=== PATIENT | male | born 1940 | race Caucasian/White ===

== ENCOUNTER 2017-06-03 19:40 | Emergency (ER) | payer MEDICARE, OTHER ==
[2017-06-03] MEDS: LORazepam 0.5 MG TABLET PO STA (21:35)
[2017-06-03] MEDS ORDERED: LORazepam 0.5 MG TABLET ONE (21:36)
--- NOTE | 2017-06-03 21:38 | ED Physician Documentation ---
History of Present Illness - Stated complaint Stated Complaint: SHAKING - Chief complaint Chief Complaint: General - History obtained from History obtained from: Patient, Family - History of Present Illness Timing: Chronic Improved by: relaxing Worsened by: anxiety - Additonal information Additional information: Patient is a 77 year old male with a history of anxiety and parkinson's disease who is presenting to the emergency department for anxiety and shaking. According to patient and family patient recently moved and has been feeling anxious. patient and family state that there was some mix up with his medictions and his shaking seemed worse. They went to see their new doctor today for the first time who also prescribed some anxiety medication. they were told that they could only take it every 12 hours so they came to the emergency department for evaluation. patient and family state that it seems his tremor is worse than usual. Review of Systems Constitutional: denies: Fever, Chills, Myalgias Eyes: denies: Loss of vision, Photophobia Ears: denies: Ear pain, Drainage/discharge Nose: denies: Congestion Throat: denies: Oral lesions / sores, Sore throat Cardiac: denies: Chest pain / pressure, Palpitations Respiratory: denies: Cough, Wheezing GI: denies: Nausea, Vomiting : reports: Reviewed and negative Skin: reports: Reviewed and negative Musculoskeletal: denies: Neck pain, Back pain, Extremity pain Neurologic: reports: Other (tremor) Psychiatric: reports: Anxiety PD PAST MEDICAL HISTORY - Allergies Allergies/Adverse Reactions: Allergies Allergy/AdvReac Type Severity Reaction Status Date / Time prednisone Allergy Edema Verified 06/03/17 19:50 PD ED PE NORMAL - Vitals Vital signs reviewed: Yes - General General: Alert and oriented X 3, No acute distress - HEENT HEENT: Atraumatic, PERRL - Neck Neck: Supple, no meningeal sign - Cardiac Cardiac: RRR, No murmur - Respiratory Respiratory: No respiratory distress, Clear bilaterally - Abdomen Abdomen: Soft, Non distended - Neuro Neuro: Alert and oriented X 3, Normal speech PD ED PE EXPANDED - General General: Disheveled, poorly kept - Neuro Neuro: Other (resting tremor, worst in right hand) - Psych Psych: Anxious Results - Vitals Vitals: Vital Signs - 24 hr 06/03/17 06/03/17 19:47 21:39 Temperature 36.5 C 36.4 C L Heart Rate 148 H 68 Respiratory 18 24 Rate Blood Pressure 147/86 H O2 Saturation 99 95 Oxygen O2 Source Room air PD MEDICAL DECISION MAKING - ED course Complexity details: reviewed old records, re-evaluated patient, considered differential, d/w patient, d/w family ED course: Patient was seen and examined at bedside. diagnostics and imaging were offered to the patient but unlikely to be helpful in this situation. patient and family stated that they would rather not get blood work or imaging, and it was mainly that he was feeling anxious and wanted to know if he could take more of his medication. Patient was treated with ativan, 1mg. Patient required no further work up at this time and was stable for discharge with outpatient follow up. Departure - Departure Disposition: Home, Self Care Clinical Impression: Anxiety about health, Parkinson disease Condition: Good Instructions: ED Stress React Follow-Up: Torrey Duong MD [Primary Care Provider] - Within 1 week Comments: Your symptoms today are likely secondary to stress/anxiety exacerbating your baseline parkinson's disease. You should try to get on a regular schedule with your parkinson's and anxiety meds. You should follow up with your doctors within the next week do re-evaluate the dosing. you may return to the emergency department at any time as needed for new, worsening or uncontrollable symptoms. Discharge Date/Time: 06/03/17 21:47
[2017-06-03 21:40] VITALS: BP 147/86
== END 2017-06-03 21:47 | disposition home or self-care (01) ==
LOC: ED 19:40
DX: F41.9 Anxiety disorder, unspecified (principal); G20 Parkinson's disease
CPT/HCPCS: 99283

== ENCOUNTER 2017-08-08 15:45 | Outpatient (CLI) | payer OTHER | END 2017-08-08 15:46 | disposition EMS.NT | LOC: EMS 15:45 | PROVIDERS: ATTEND Surgery | DX: R45.89 Other symptoms and signs involving emotional state (principal) ==

== ENCOUNTER 2017-08-10 09:40 | Outpatient (CLI) | payer OTHER | END 2017-08-10 09:41 | disposition critical access hospital (66) | LOC: EMS 09:40 | PROVIDERS: ATTEND Surgery | DX: R46.89 Other symptoms and signs involving appearance and behavior (principal) | CPT/HCPCS: A0425; A0429 ==

== ENCOUNTER 2017-08-10 09:47 | Emergency (ER) | payer OTHER ==
--- NOTE | 2017-08-10 09:58 | ED Physician Documentation ---
History of Present Illness - Stated complaint Stated Complaint: MHE - Chief complaint Chief Complaint: General - History obtained from History obtained from: Family (Pt was unable/unwilling to provide any history. of patient provided history. states that over the past 3 days the pt has become more confused. He does have a hx of PD [facility] She denies any trauma, no hx of dementia, does have chronic pain. did have an increase in his PD meds recently. There have been some reports of no no sleep for the past couple days.), EMS Review of Systems Unable to obtain: Uncooperative PD PAST MEDICAL HISTORY - Past Medical History Cardiovascular: Hypertension Neuro: Parkinson's Other Past Medical History: Parkinson's - Past Surgical History Past Surgical History: No - Present Medications Home Medications: Ambulatory Orders Medication Instructions Recorded Confirmed Carbidopa/Levodopa [Carbidopa-Levo 1 tab PO QID 08/10/17 08/10/17 ER 50-200 Tab] Carbidopa/Levodopa 1 tab PO QID 08/10/17 08/10/17 [Carbidopa-Levodopa 25-100 Tab] Citalopram Hydrobromide 20 mg PO DAILY 08/10/17 08/10/17 [Citalopram HBr] Lorazepam [Ativan] 1 mg PO Q6HR PRN #7 tablet 08/10/17 Meloxicam 7.5 mg PO DAILY 08/10/17 08/10/17 - Allergies Allergies/Adverse Reactions: Allergies Allergy/AdvReac Type Severity Reaction Status Date / Time prednisone Allergy Edema Verified 06/03/17 19:50 PD ED PE NORMAL - Vitals Vital signs reviewed: Yes - General General: Other (pt did not answer questions and did not follow directions. ) - HEENT HEENT: Atraumatic, Moist mucous membranes - Cardiac Cardiac: RRR, No murmur - Respiratory Respiratory: No respiratory distress - Abdomen Abdomen: Soft, Non distended - Derm Derm: Normal color, No rash - Extremities Extremities: No deformity, No edema - Neuro Neuro: Other (pt with bilateral rhythmic movements C/W his PD) Eye Opening: Spontaneous Motor: Localizes to Pain Verbal: None GCS Score: 10 Results - Vitals Vitals: Vital Signs - 24 hr 08/10/17 08/10/17 08/10/17 09:48 10:07 10:35 Temperature 36.6 C Heart Rate 76 78 79 Respiratory 16 20 20 Rate Blood Pressure 171/116 H 128/100 H O2 Saturation 100 99 99 08/10/17 11:34 Temperature Heart Rate 81 Respiratory 17 Rate Blood Pressure 142/96 H O2 Saturation 97 Oxygen O2 Source Room air - EKG (time done) 1000 Rate: Rate (enter#) Rhythm: NSR [place]: LAD QRS: Normal Other comments: Other comments (baseline wandering secondary to his shaking, has PVC) - Labs Labs: Laboratory Tests 08/10/17 08/10/17 08/10/17 10:10 10:10 10:10 WBC 5.7 RBC 4.41 L Hgb 13.3 L Hct 39.2 L MCV 88.9 MCH 30.2 MCHC 34.0 RDW 16.2 H Plt Count 113 L MPV 7.9 Neut # 3.3 Lymph # 1.0 L [place] # 1.3 H Eos # 0.0 Baso # 0.0 Absolute Nucleated RBC 0.00 Nucleated RBC % 0.0 Manual Slide Review Indicated Platelet Estimate DECREASED (<130,000) Platelet Morphology 1+ GIANT PLATELETS RBC Morph Micro Appear NORMAL APPEARANCE Sodium 132 L Potassium 4.3 Chloride 94 L Carbon Dioxide 24 Anion Gap 14.0 H BUN 19 Creatinine 1.4 H Estimated GFR (MDRD) 49 L Glucose 104 H Calcium 9.7 Total Bilirubin 1.9 H AST 24 ALT < 10 L Alkaline Phosphatase 55 Troponin I < 0.04 Total Protein 7.6 Albumin 4.5 Globulin 3.1 Albumin/Globulin Ratio 1.5 Lipase 21 L Ethyl Alcohol < 5.0 - Rads (name of study) Head Ct Radiology: Other PD MEDICAL DECISION MAKING - ED course Complexity details: d/w patient, d/w family ED course: pt with resolution of all of his presenting symptoms after the IV ativan in the ER. After the ativan the pt became more calm and cooperative and states that he feels much better and feels "normal" again. He had no complaints after the arivan. We discussed his medications. Informed the pt and his that they needed to talk with his neurologist before making any changes to his medications. they expressed understanding. Departure - Departure Disposition: 01 Home, Self Care Clinical Impression: Anxiety Condition: Good Instructions: ED Stress React Follow-Up: jovain willoughby provider [Other] Prescriptions: Lorazepam [Ativan] 1 mg PO Q6HR PRN #7 tablet PRN Reason: Agitation Comments: Call your Neurologist to discuss your medications before you make any changes. Take the medications that I gave you today as needed. Return to the ER for any new or worsening symptoms
[2017-08-10 10:19] LABS: BASOPHILS % (AUTO) 0.4 %; EOSINOPHILS % (AUTO) 0.8 %; HCT - HEMATOCRIT 39.2 % (42.0-52.0); HGB - HEMOGLOBIN 13.3 g/dL (14.0-18.0); MEAN CORPUSCULAR HEMOGLOBIN 30.2 pg (27.0-31.0); MEAN CORPUSCULAR VOLUME 88.9 fL (80.0-94.0); MEAN PLATELET VOLUME 7.9 fL (7.4-11.4); MONOCYTES # (AUTO) 1.3 10^3/uL (0.0-1.0); MONOCYTES % (AUTO) 22.5 %; NEUTROPHILS # (AUTO) 3.3 10^3/uL (1.5-6.6); NEUTROPHILS % (AUTO) 58.3 %; RED BLOOD COUNT 4.41 10^6/uL (4.70-6.10); RED CELL DISTRIBUTION WIDTH 16.2 % (12.0-15.0); UNCORRECTED WHITE BLOOD COUNT 5.7 x10^3/uL; WHITE BLOOD COUNT 5.7 x10^3/uL (4.8-10.8)
[2017-08-10 10:27] LABS: ALBUMIN/GLOBULIN RATIO 1.5 (1.0-2.2); BILIRUBIN,TOTAL 1.9 mg/dL (0.2-1.0); BUN - BLOOD UREA NITROGEN 19 mg/dL (6-20); CALCIUM 9.7 mg/dL (8.5-10.3); CARBON DIOXIDE - CO2 24 mmol/L (21-32); CHLORIDE 94 mmol/L (101-111); CREATININE 1.4 mg/dL (0.6-1.2); GFR - MDRD 49 (>89); GLUCOSE 104 mg/dL (70-100); LIPASE 21 U/L (22-51); POTASSIUM 4.3 mmol/L (3.5-5.0); SODIUM 132 mmol/L (135-145); TOTAL PROTEIN 7.6 g/dL (6.7-8.2)
--- NOTE | 2017-08-10 10:41 | CT Preliminary Report ---
Exam: CT HEAD W/O IMPRESSION: Generalized age-related cortical atrophic changes without evidence of acute intracranial abnormality. [facility] SITE ID: [id number]
--- NOTE | 2017-08-10 10:44 | CT Report ---
EXAM: CT HEAD EXAM DATE: 08/10/2017 10:26 AM. CLINICAL HISTORY: AMS. COMPARISON: None. TECHNIQUE: Multiaxial CT images were obtained from the foramen magnum to the vertex. Reformats: Coron al. IV contrast: None. In accordance with CT protocol optimization, one or more of the following dose reduction techniques w ere utilized for this exam: automated exposure control, adjustment of mA and/or KV based on patient s ize, or use of iterative reconstructive technique. FINDINGS: Parenchyma: No intraparenchymal hemorrhage. No evidence of mass, midline shift, or CT findings of acu te infarction. Alanis-white differentiation is distinct. Mild chronic microangiopathic white matter davide nges are evident. Extraaxial Spaces: Normal for age. No subdural or epidural collections identified. Ventricles: The ventricles and cortical sulci are enlarged, consistent with age-related tissue loss. Sinuses and orbits: Imaged paranasal sinuses, orbits, and mastoids show no significant abnormality. Bones: No evidence of fracture or calvarial defect. Other: None. IMPRESSION: Generalized age-related cortical atrophic changes without evidence of acute intracranial abnormality. [facility] Referring Provider Line: [phone] SITE ID: [id number]
[2017-08-10 11:06] LABS: PLATELET ESTIMATE, MANUAL DECREASED (<130,000) (NORMAL)
[2017-08-10] MEDS ORDERED: LORazepam 0.5 MG TABLET PO STA (11:15)
[2017-08-10] MEDS ORDERED: LORazepam 2 MG/ML VIAL ONE (11:27)
[2017-08-10 12:49] VITALS: BP 219/199
[2017-08-10] MEDS ORDERED: LORazepam 2 MG/ML VIAL IVP STA (18:00)
== END 2017-08-10 13:05 | disposition home or self-care (01) ==
LOC: EDUNIT# → ED 09:47
DX: F41.9 Anxiety disorder, unspecified (principal); I45.2 Bifascicular block; R94.31 Abnormal electrocardiogram [ECG] [EKG]; I10 Essential (primary) hypertension; G20 Parkinson's disease
CPT/HCPCS: 36415; 70450; 80053; 80320; 83690; 84484; 85025; 93005; 99283; 99284; J2060

== ENCOUNTER 2017-08-12 14:01 | Emergency (ER) | payer OTHER ==
[2017-08-12 16:14] LABS: ALBUMIN/GLOBULIN RATIO 1.4 (1.0-2.2); BASOPHILS % (AUTO) 0.7 %; BUN - BLOOD UREA NITROGEN 24 mg/dL (6-20); CALCIUM 9.2 mg/dL (8.5-10.3); CARBON DIOXIDE - CO2 24 mmol/L (21-32); CHLORIDE 96 mmol/L (101-111); CREATININE 1.2 mg/dL (0.6-1.2); EOSINOPHILS % (AUTO) 1.6 %; GFR - MDRD 59 (>89); GLUCOSE 109 mg/dL (70-100); HCT - HEMATOCRIT 36.8 % (42.0-52.0); HGB - HEMOGLOBIN 12.6 g/dL (14.0-18.0); LYMPHOCYTES % (AUTO) 23.8 %; MEAN CORPUSCULAR HEMOGLOBIN 30.5 pg (27.0-31.0); MEAN CORPUSCULAR HGB CONC 34.2 g/dL (32.0-36.0); MEAN CORPUSCULAR VOLUME 89.2 fL (80.0-94.0); MEAN PLATELET VOLUME 7.9 fL (7.4-11.4); MONOCYTES % (AUTO) 20.2 %; NEUTROPHILS % (AUTO) 53.7 %; POTASSIUM 4.1 mmol/L (3.5-5.0); RED BLOOD COUNT 4.13 10^6/uL (4.70-6.10); RED CELL DISTRIBUTION WIDTH 16.1 % (12.0-15.0); SALICYLATE < 6.0 mg/dL; SODIUM 133 mmol/L (135-145); TOTAL PROTEIN 6.8 g/dL (6.7-8.2)
[2017-08-12 16:15] LABS: ACETAMINOPHEN < 10 ug/mL (10-30)
[2017-08-12 16:19] LABS: BAND NEUTROPHILS % (MANUAL) 0 %
--- NOTE | 2017-08-12 16:40 | ED Physician Documentation ---
History of Present Illness - Stated complaint Stated Complaint: MHE - Chief complaint Chief Complaint: MHE - Additonal information Additional information: 77-year-old male with history of Parkinson's disease brought to the emergency department by his for ongoing suicidal ideation. Patient was evaluated 3 days ago, felt that his depressive/altered mental status symptoms were worsening on his medication. Reportedly told he must stay on his medications. He reports feeling somewhat better after ativan in the emergency department but all of his symptoms resumed after going home. He has been unable to sleep for several days. Patient's reports that he opened the car door from moving vehicle and attempted to jump out in order to hurt himself. Patient endorses hallucinations to me. Review of Systems Constitutional: denies: Fever Nose: denies: Congestion Throat: denies: Sore throat Cardiac: denies: Chest pain / pressure Respiratory: denies: Dyspnea GI: denies: Abdominal Pain Skin: denies: Rash Musculoskeletal: denies: Extremity pain Neurologic: reports: Other (parkinsons) Psychiatric: reports: Depressed, Suicidal, Hallucinations, Insomnia PD PAST MEDICAL HISTORY - Past Medical History Past Medical History: Yes Cardiovascular: Hypertension Respiratory: None Neuro: Parkinson's Endocrine/Autoimmune: None GI: None : None HEENT: None Psych: None Musculoskeletal: Chronic back pain Derm: None - Past Surgical History Past Surgical History: No - Present Medications Home Medications: Ambulatory Orders Medication Instructions Recorded Confirmed Carbidopa/Levodopa [Carbidopa-Levo 1 tab PO QID 08/10/17 08/10/17 ER 50-200 Tab] Carbidopa/Levodopa 1 tab PO QID 08/10/17 08/10/17 [Carbidopa-Levodopa 25-100 Tab] Citalopram Hydrobromide 20 mg PO DAILY 08/10/17 08/10/17 [Citalopram HBr] Lorazepam [Ativan] 1 mg PO Q6HR PRN #7 tablet 08/10/17 Meloxicam 7.5 mg PO DAILY 08/10/17 08/10/17 - Allergies Allergies/Adverse Reactions: Allergies Allergy/AdvReac Type Severity Reaction Status Date / Time prednisone Allergy Edema Verified 06/03/17 19:50 - Social History Does the pt smoke?: No Smoking Status: Never smoker Does the pt drink ETOH?: No Does the pt have substance abuse?: No - Immunizations Immunizations are current?: Yes - POLST Patient has POLST: No PD ED PE NORMAL - General General: No acute distress - HEENT HEENT: Atraumatic - Neck Neck: Supple, no meningeal sign - Cardiac Cardiac: RRR - Respiratory Respiratory: No respiratory distress, Clear bilaterally - Abdomen Abdomen: Soft, Non tender - Derm Derm: Normal color - Extremities Extremities: No deformity - Neuro Neuro: Other (Pill-rolling tremor,Paucity of movement, masked facies) - Psych Psych: Other (flat, minimal interaction, uncertain if responding to internal stimuli ) Results - Vitals Vitals: Vital Signs - 24 hr 08/12/17 08/12/17 08/12/17 14:09 17:34 21:57 Temperature 36.6 C Heart Rate 97 70 67 Respiratory 20 12 22 Rate Blood Pressure 130/89 H 114/83 H 88/66 L O2 Saturation 99 92 95 08/12/17 22:23 Temperature Heart Rate 63 Respiratory Rate Blood Pressure 119/80 O2 Saturation 97 Oxygen O2 Source Room air - Labs Labs: Laboratory Tests 08/12/17 08/12/17 08/12/17 15:53 15:53 15:53 WBC 4.0 L RBC 4.13 L Hgb 12.6 L Hct 36.8 L MCV 89.2 MCH 30.5 MCHC 34.2 RDW 16.1 H Plt Count 120 L MPV 7.9 Neut # EMERGENCY ROOM RN Lymph # EMERGENCY ROOM RN [place] # EMERGENCY ROOM RN Eos # EMERGENCY ROOM RN Baso # EMERGENCY ROOM RN Absolute Nucleated RBC EMERGENCY ROOM RN Total Counted 100 Band Neuts % (Manual) 0 Abnorm Lymph % (Manual) 0 Nucleated RBC % EMERGENCY ROOM RN Neutrophils # (Manual) 2.1 Lymphocytes # (Manual) 1.0 L Monocytes # (Manual) 0.8 Eosinophils # (Manual) 0.1 Basophils # (Manual) 0.0 Manual Slide Review Indicated WBC Morphology 1+ HYPERSEG NEUT Platelet Estimate DECREASED (<130,000) Platelet Morphology NORMAL APPEARANCE RBC Morph Micro Appear 1+ POLYCHROMASIA Sodium 133 L Potassium 4.1 Chloride 96 L Carbon Dioxide 24 Anion Gap 13.0 BUN 24 H Creatinine 1.2 Estimated GFR (MDRD) 59 L Glucose 109 H Calcium 9.2 Total Bilirubin 1.0 AST 19 ALT < 10 L Alkaline Phosphatase 56 Total Protein 6.8 Albumin 4.0 Globulin 2.8 Albumin/Globulin Ratio 1.4 TSH 1.26 Salicylates < 6.0 Acetaminophen < 10 L Ethyl Alcohol < 5.0 - Rads (name of study) CT chest Radiology: Other (error no CT chest performed) PD MEDICAL DECISION MAKING - ED course ED course: 77-year-old male presents to the emergency departmentBrought by for the second time this week for, possible psychosis versus worsening Parkinson's disease with suicidality and depression and insomnia. It is difficult to assess whether this is related to worsening Parkinson's or possible early dementia or Lewy body dementia or truly silly dementia depression. It may be a combination of both. Nonetheless this patient is at high risk for self injury at home, and would benefit greatly from medical as well as psychiatric evaluation inpatient with a structured milieu. [facility]ed with [facility] options for medical admission with psychiatric consultation versus psychiatric admission with medical consultation. If the appropriate consultation were available either location. The [facility] reports they do not have any availability for patient to be placed. Discussed patient's case with the [facility] social media senior associate, they reported that they could not assist with any disposition for this patient without him first having a mental health evaluation in our emergency department. Suggests that patient be set up for a geriatric psychiatric facility. Discussed patient's case with mental health, they will not evaluate this patient in the emergency department given that he would be agreeable to going to a facility, they only evaluate patients who are not agreeable to going to facilities. They report that social media senior associate must evaluate the patient here. Discussed with patient Dr. العراقي, Neurologist on-call at [facility]. He recommends that the patient's medications be titrated such that he does not have agitated or psychotic symptoms, but is still able to be up and moving. While his positive symptoms of psychosis over these past 2 weeks could certainly be related to being overmedicated, generally these medications would be adjusted on an outpatient basis. It is acceptable to use Seroquel and Ativan for the patient's symptoms of agitation. Unfortunately the patient's medications do not appear to be fully updated in the chart. So we were not able to discuss specifically how to change the medications. If the patient is taking extended release he recommends keeping the same dosing and discontinuing extended release. Dr. Alanis manager environmental affairs neurology reports that patient does indeed take carbidopa levodopa 25-100mg qid and carbidopa levodopa 50-200mg ER qid Per the patient's movement specialist. This is a recent change, she reports that yesterday he was decreased from 5 times a day to 4 times a day. He may have issues with difficulty initiating movements if his medications go too low. For now we will continue the 4 times daily dosing while he awaits placement or improvement in his symptoms. She does [facility] to [facility]. - Consults Consults: Discussed case with (Social work at [facility]), Other (He reports that the patient would require a mental health evaluation prior to potential transfer to their psychiatric facility, recommends an evaluation here by mental health for possibility of [facility].)
[2017-08-12 16:46] LABS: EOSINOPHILS % (MANUAL) 2 %; LYMPHOCYTES % (MANUAL) 24 %; NEUTROPHILS % (MANUAL) 53 %; TOTAL CELLS COUNTED 100
[2017-08-12 16:50] LABS: PLATELET ESTIMATE, MANUAL DECREASED (<130,000) (NORMAL); PLATELET MORPHOLOGY NORMAL APPEARANCE (NORMAL); WBC MORPHOLOGY (MULTIPLE) 1+ HYPERSEG NEUT (NORMAL)
[2017-08-12 16:59] LABS: NP AUTO DIFFERENTIAL? YES
[2017-08-12 17:00] LABS: NP MAN DIFFERENTIAL? NO
[2017-08-12] MEDS ORDERED: LORazepam 0.5 MG TABLET PO STA (18:21)
[2017-08-12 22:44] LABS: BILIRUBIN,URINE NEGATIVE (NEGATIVE)
[2017-08-12 22:49] LABS: UA CHARGE (STRIP ONLY) YES; UR CULTURE IF IND NOT INDICATED
[2017-08-12] MEDS: CARBIDOPA/LEVODOPA ER 50 MG/200 MG TABLET PO SCH (23:08)
[2017-08-12] MEDS: CARBIDOPA/LEVODOPA 25 MG/100 MG TABLET PO SCH (23:08)
[2017-08-13] MEDS: CARBIDOPA/LEVODOPA 25 MG/100 MG TABLET PO SCH ×4 (09:20→20:00)
[2017-08-13] MEDS: CARBIDOPA/LEVODOPA ER 50 MG/200 MG TABLET PO SCH ×4 (09:20→20:00)
[2017-08-13] MEDS ORDERED: CARBIDOPA/LEVODOPA ER 50 MG/200 MG TABLET PO ONE (18:08)
--- NOTE | 2017-08-13 18:52 | ED Physician Documentation ---
ED Addendum - Addendum Addendum: 08/13/17 18:47 At change of shift, the patient's care was turned over to me pending placement being arranged by medical office receptionist. He was given his prescribed doses of carbidopa/levodopa, which is prescribed 4 times daily. He was also given his citalopram 20 mg which is prescribed for a.m. dosing. wheel worker was unable to locate an accepting facility. I discussed this with patient and his . They would prefer to continue working on placement rather than for the patient to go home at this time. For some reason the patient does not feel safe, although is unclear to me the reason he would prefer to stay in the emergency department rather than go home for the night awaiting further disposition arrangements per medical office receptionist tomorrow. Both patient and his state that his symptoms seem to be slightly improving since the change in his medication dosing to 4 times daily from 5 times daily.
[2017-08-13] MEDS ORDERED: LORazepam 0.5 MG TABLET PO STA (19:29)
[2017-08-13] MEDS ORDERED: LORazepam 0.5 MG TABLET ONE (19:50)
[2017-08-14 08:15] VITALS: BP 144/94
[2017-08-14] MEDS: CARBIDOPA/LEVODOPA ER 50 MG/200 MG TABLET PO SCH (09:50)
[2017-08-14] MEDS: CARBIDOPA/LEVODOPA 25 MG/100 MG TABLET PO SCH (09:50)
--- NOTE | 2017-08-14 10:31 | ED Physician Documentation ---
History of Present Illness - Stated complaint Stated Complaint: MHE - Chief complaint Chief Complaint: MHE - History obtained from History obtained from: Patient PD PAST MEDICAL HISTORY - Past Medical History Past Medical History: Yes Cardiovascular: Hypertension Respiratory: None Neuro: Parkinson's Endocrine/Autoimmune: None GI: None : None HEENT: None Psych: None Musculoskeletal: Chronic back pain Derm: None - Past Surgical History Past Surgical History: No - Present Medications Home Medications: Ambulatory Orders Medication Instructions Recorded Confirmed Carbidopa/Levodopa [Carbidopa-Levo 1 tab PO QID 08/10/17 08/10/17 ER 50-200 Tab] Carbidopa/Levodopa 1 tab PO QID 08/10/17 08/10/17 [Carbidopa-Levodopa 25-100 Tab] Citalopram Hydrobromide 20 mg PO DAILY 08/10/17 08/10/17 [Citalopram HBr] Lorazepam [Ativan] 1 mg PO Q6HR PRN #7 tablet 08/10/17 Meloxicam 7.5 mg PO DAILY 08/10/17 08/10/17 - Allergies Allergies/Adverse Reactions: Allergies Allergy/AdvReac Type Severity Reaction Status Date / Time prednisone Allergy Edema Verified 06/03/17 19:50 - Social History Does the pt smoke?: No Smoking Status: Never smoker Does the pt drink ETOH?: No Does the pt have substance abuse?: No - Immunizations Immunizations are current?: Yes - POLST Patient has POLST: No Results - Vitals Vitals: Vital Signs - 24 hr 08/13/17 08/14/17 08/14/17 17:49 05:54 08:14 Temperature 36.6 C 36.7 C 36.4 C L Heart Rate 84 66 66 Respiratory 17 14 14 Rate Blood Pressure 136/84 H 130/100 H 144/94 H O2 Saturation 98 95 100 Oxygen O2 Source Room air - Labs Labs: Laboratory Tests 08/12/17 08/12/17 08/12/17 15:53 15:53 15:53 WBC 4.0 L RBC 4.13 L Hgb 12.6 L Hct 36.8 L MCV 89.2 MCH 30.5 MCHC 34.2 RDW 16.1 H Plt Count 120 L MPV 7.9 Neut # RN PARALEGAL Lymph # RN PARALEGAL [place] # RN PARALEGAL Eos # RN PARALEGAL Baso # RN PARALEGAL Absolute Nucleated RBC RN PARALEGAL Total Counted 100 Band Neuts % (Manual) 0 Abnorm Lymph % (Manual) 0 Nucleated RBC % RN PARALEGAL Neutrophils # (Manual) 2.1 Lymphocytes # (Manual) 1.0 L Monocytes # (Manual) 0.8 Eosinophils # (Manual) 0.1 Basophils # (Manual) 0.0 Manual Slide Review Indicated WBC Morphology 1+ HYPERSEG NEUT Platelet Estimate DECREASED (<130,000) Platelet Morphology NORMAL APPEARANCE RBC Morph Micro Appear 1+ POLYCHROMASIA Sodium 133 L Potassium 4.1 Chloride 96 L Carbon Dioxide 24 Anion Gap 13.0 BUN 24 H Creatinine 1.2 Estimated GFR (MDRD) 59 L Glucose 109 H Calcium 9.2 Total Bilirubin 1.0 AST 19 ALT < 10 L Alkaline Phosphatase 56 Total Protein 6.8 Albumin 4.0 Globulin 2.8 Albumin/Globulin Ratio 1.4 TSH 1.26 Urine Color Urine Clarity Urine pH Ur Specific [place] Urine Protein Urine Glucose (UA) Urine Ketones Urine Occult Blood Urine Nitrite Urine Bilirubin Urine Urobilinogen Ur Leukocyte Esterase Ur Microscopic Review Urine Culture Comments Salicylates < 6.0 Urine Opiates Screen Ur Oxycodone Screen Urine Methadone Screen Ur Propoxyphene Screen Acetaminophen < 10 L Ur Barbiturates Screen Ur Tricyclics Screen Ur Phencyclidine Scrn Ur Amphetamine Screen U Methamphetamines Scrn U Benzodiazepines Scrn Urine Cocaine Screen U Cannabinoids Screen Ethyl Alcohol < 5.0 08/12/17 22:30 WBC RBC Hgb Hct MCV MCH MCHC RDW Plt Count MPV Neut # Lymph # [place] # Eos # Baso # Absolute Nucleated RBC Total Counted Band Neuts % (Manual) Abnorm Lymph % (Manual) Nucleated RBC % Neutrophils # (Manual) Lymphocytes # (Manual) Monocytes # (Manual) Eosinophils # (Manual) Basophils # (Manual) Manual Slide Review WBC Morphology Platelet Estimate Platelet Morphology RBC Morph Micro Appear Sodium Potassium Chloride Carbon Dioxide Anion Gap BUN Creatinine Estimated GFR (MDRD) Glucose Calcium Total Bilirubin AST ALT Alkaline Phosphatase Total Protein Albumin Globulin Albumin/Globulin Ratio TSH Urine Color YELLOW Urine Clarity CLEAR Urine pH 6.0 Ur Specific [place] 1.020 Urine Protein NEGATIVE Urine Glucose (UA) NEGATIVE Urine Ketones NEGATIVE Urine Occult Blood NEGATIVE Urine Nitrite NEGATIVE Urine Bilirubin NEGATIVE Urine Urobilinogen 0.2 (NORMAL) Ur Leukocyte Esterase NEGATIVE Ur Microscopic Review NOT INDICATED Urine Culture Comments NOT INDICATED Salicylates Urine Opiates Screen NEGATIVE Ur Oxycodone Screen NEGATIVE Urine Methadone Screen NEGATIVE Ur Propoxyphene Screen NEGATIVE Acetaminophen Ur Barbiturates Screen NEGATIVE Ur Tricyclics Screen NEGATIVE Ur Phencyclidine Scrn NEGATIVE Ur Amphetamine Screen NEGATIVE U Methamphetamines Scrn NEGATIVE U Benzodiazepines Scrn POSITIVE H Urine Cocaine Screen NEGATIVE U Cannabinoids Screen POSITIVE H Ethyl Alcohol PD MEDICAL DECISION MAKING - ED course Complexity details: reviewed old records, considered differential, d/w patient, d/w family ED course: 77-year-old maleWith a history of Parkinson's disease has had a decompensation with hallucinations and suicidal ideation. His dose of carbidopa levodopa was adjusted down any appears improved today. He does have follow-up with his neurologist in 5 days. Departure - Departure Disposition: 01 Home, Self Care Clinical Impression: Parkinson disease Instructions: Parkinson Disease Dc Follow-Up: Torrey Duong MD [Primary Care Provider] -
== END 2017-08-14 10:42 | disposition home or self-care (01) ==
LOC: ED 14:01
DX: G20 Parkinson's disease (principal); R44.3 Hallucinations, unspecified; R45.851 Suicidal ideations; F32.9 Major depressive disorder, single episode, unspecified; I10 Essential (primary) hypertension; G47.00 Insomnia, unspecified; I45.10 Unspecified right bundle-branch block; R94.31 Abnormal electrocardiogram [ECG] [EKG]
CPT/HCPCS: 36415; 80053; 80306; 80307; 80320; 80329; 81003; 84443; 85025; 93005; 99283; 99284; A9270; 81001; 87086

== ENCOUNTER 2017-10-02 12:32 | Outpatient (CLI) | payer OTHER | END 2017-10-02 12:33 | disposition critical access hospital (66) | LOC: EMS 12:32 | PROVIDERS: ATTEND Surgery | DX: R46.4 Slowness and poor responsiveness (principal); R35.0 Frequency of micturition | CPT/HCPCS: A0425; A0427 ==

== ENCOUNTER 2017-10-02 13:24 | Emergency (ER) | payer OTHER ==
--- NOTE | 2017-10-02 13:20 | ED Physician Documentation ---
PD HPI ALTERED MENTAL STATUS - Stated complaint Stated Complaint: AMS - History obtained from History obtained from: Family - History of Present Illness Timing - onset: Today Timing - duration: Minutes Timing - details: Abrupt onset Quality / character: Unresponsive (he had seemed some ill with cough and congestion, less appetite with sore throat for couple days. says he was getting up to standing and got weak and pale and slumped down. She caught him and he was lowered without injury. No tremoring nor abnormal breating pattern. Awoke after a minute once on floor, but was dazed for several minutes.) Associated symptoms: General weakness, Syncope. No: Fever, Headache, Dyspnea, Cough, Seizure activity Contributing factors: Recent illness (mild URI symptoms). No: Anticoagulated, Diabetic Basline status: Alert and oriented X 3, Walker Treatment CONVENTION WORKER: Accucheck Similar symptoms before: Has not had sx before Recently seen: Not recently seen Review of Systems Constitutional: denies: Fever, Chills Nose: reports: Rhinorrhea / runny nose, Congestion Throat: reports: Sore throat Cardiac: denies: Chest pain / pressure Respiratory: reports: Cough. denies: Dyspnea GI: reports: Other (less appetite for 2 days). denies: Vomiting, Diarrhea : reports: Frequency. denies: Dysuria Skin: denies: Rash, Lesions, Abrasion (s), Laceration (s) Neurologic: denies: Altered mental status, Headache Endocrine: denies: Weight loss Immunocompromised: denies: Immunocompromised PD PAST MEDICAL HISTORY - Past Medical History Cardiovascular: Hypertension Respiratory: None Neuro: Parkinson's Endocrine/Autoimmune: None GI: None : None HEENT: None Psych: None Musculoskeletal: Chronic back pain Derm: None - Past Surgical History Past Surgical History: No - Present Medications Home Medications: Ambulatory Orders Medication Instructions Recorded Confirmed Carbidopa/Levodopa [Carbidopa-Levo 1 tab PO 5XD 08/10/17 08/10/17 ER 50-200 Tab] Carbidopa/Levodopa 1 tab PO QID PRN 08/10/17 08/10/17 [Carbidopa-Levodopa 25-100 Tab] Citalopram Hydrobromide 20 mg PO DAILY 08/10/17 08/10/17 [Citalopram HBr] Lorazepam [Ativan] 1 mg PO Q6HR PRN #7 tablet 08/10/17 Meloxicam 7.5 mg PO DAILY 08/10/17 08/10/17 - Allergies Allergies/Adverse Reactions: Allergies Allergy/AdvReac Type Severity Reaction Status Date / Time prednisone Allergy Edema Verified 10/02/17 13:30 - Social History Does the pt smoke?: No Smoking Status: Never smoker Does the pt drink ETOH?: No Does the pt have substance abuse?: No - Family History Family history: reports: Non contributory - Immunizations Immunizations are current?: Yes - POLST Patient has POLST: No PD ED PE NORMAL - Vitals Vital signs reviewed: Yes - General General: Alert and oriented X 3, No acute distress (baseline tremoring, per ), Well developed/nourished - HEENT HEENT: Atraumatic, Ears normal, Pharynx benign. No: Moist mucous membranes - Neck Neck: Supple, no meningeal sign, No adenopathy, No JVD - Cardiac Cardiac: RRR, No murmur - Respiratory Respiratory: Clear bilaterally - Abdomen Abdomen: Soft, Non tender - Male Male : Deferred - Rectal Rectal: Deferred - Back Back: No CVA TTP - Derm Derm: Normal color, Warm and dry - Extremities Extremities: No tenderness to palpate, Normal ROM s pain, No edema, No calf tenderness / cord - Neuro Neuro: Alert and oriented X 3, No motor deficit (with Parkinsons type tremoring of arms. ), Normal speech Eye Opening: Spontaneous Motor: Obeys Commands Verbal: Oriented GCS Score: 15 - Psych Psych: Normal mood Results - Vitals Vitals: Vital Signs - 24 hr 10/02/17 10/02/17 10/02/17 13:23 15:00 16:28 Temperature 36.3 C L Heart Rate 64 70 75 Respiratory 23 15 16 Rate Blood Pressure 158/91 H 133/91 H 107/93 H O2 Saturation 99 99 99 Oxygen O2 Source Room air - EKG (time done) 13:13 Rate: Rate (enter#) (64) Rhythm: NSR Kennedy: Normal Intervals: Wide QRS QRS: Normal Ischemia: Normal ST segments. No: ST elevation c/w ischemia, ST depression - Labs Labs: Laboratory Tests 10/02/17 10/02/17 10/02/17 14:05 14:05 14:05 WBC 4.1 L RBC 4.41 L Hgb 13.2 L Hct 38.8 L MCV 88.1 MCH 30.0 MCHC 34.0 RDW 16.4 H Plt Count 129 L MPV 7.5 Neut # 2.3 Lymph # 0.8 L [place] # 0.9 Eos # 0.0 Baso # 0.0 Absolute Nucleated RBC 0.00 Nucleated RBC % 0.1 Manual Slide Review Indicated Platelet Estimate DECREASED (<130,000) Platelet Morphology NORMAL APPEARANCE RBC Morph Micro Appear NORMAL APPEARANCE Sodium 130 L Potassium 3.9 Chloride 98 L Carbon Dioxide 22 Anion Gap 10.0 BUN 13 Creatinine 1.0 Estimated GFR (MDRD) 73 L Glucose 100 Lactic Acid 1.3 Calcium 9.0 Magnesium 1.9 Total Bilirubin 1.7 H AST 15 ALT < 10 L Alkaline Phosphatase 56 Total Protein 7.2 Albumin 4.5 Globulin 2.7 Albumin/Globulin Ratio 1.7 Lipase 16 L Urine Color Urine Clarity Urine pH Ur Specific [place] Urine Protein Urine Glucose (UA) Urine Ketones Urine Occult Blood Urine Nitrite Urine Bilirubin Urine Urobilinogen Ur Leukocyte Esterase Ur Microscopic Review Urine Culture Comments Influenza A (Rapid) Influenza B (Rapid) Influenza Types A,B Ag Group A Strep Rapid 10/02/17 10/02/17 10/02/17 14:35 14:35 14:35 WBC RBC Hgb Hct MCV MCH MCHC RDW Plt Count MPV Neut # Lymph # [place] # Eos # Baso # Absolute Nucleated RBC Nucleated RBC % Manual Slide Review Platelet Estimate Platelet Morphology RBC Morph Micro Appear Sodium Potassium Chloride Carbon Dioxide Anion Gap BUN Creatinine Estimated GFR (MDRD) Glucose Lactic Acid Calcium Magnesium Total Bilirubin AST ALT Alkaline Phosphatase Total Protein Albumin Globulin Albumin/Globulin Ratio Lipase Urine Color YELLOW Urine Clarity CLEAR Urine pH 6.5 Ur Specific [place] 1.010 Urine Protein NEGATIVE Urine Glucose (UA) NEGATIVE Urine Ketones NEGATIVE Urine Occult Blood NEGATIVE Urine Nitrite NEGATIVE Urine Bilirubin NEGATIVE Urine Urobilinogen 0.2 (NORMAL) Ur Leukocyte Esterase NEGATIVE Ur Microscopic Review NOT INDICATED Urine Culture Comments NOT INDICATED Influenza A (Rapid) Negative Influenza B (Rapid) Negative Influenza Types A,B Ag - Group A Strep Rapid Negative PD MEDICAL DECISION MAKING - ED course Complexity details: considered differential (he had some sore throat and cough/ congestion and was not eating as much for 2 days. I think he had syncope from hydration and illness. Description does not sound like seizure, though that would be a consideration given his advanced Parkinsons. ), d/w patient, d/w family Departure - Departure Disposition: 01 Home, Self Care Clinical Impression: Parkinson disease, Anxiety Syncope Qualifiers: Syncope type: unspecified Qualified Code(s): R55 - Syncope and collapse Condition: Stable Record reviewed to determine appropriate education?: Yes Instructions: ED Fainting Unkn Cause Comments: Continue current medications. Drink lots of fluids. The lab tests appear normal here as does a urine test. Flu and strep tests are also negative. There is a little bit of redness in the back of the throat and his current symptoms with a little congestion may suggest a cold type illness. I do not have an explanation per se for the fainting. Presume he was under hydrated and ill and just had a transient drop in blood pressure. His blood pressure here was now high initially and is become more normal as he has been here. Recheck that into next week to see if it is more in stays more normal. Recheck if recurrent episodes were not improved over the next few days. Tylenol if needed for sore throat. Discharge Date/Time: 10/02/17 16:30
[2017-10-02] MEDS ORDERED: LORazepam 2 MG/ML VIAL IVP STA (13:48)
[2017-10-02] MEDS ORDERED: LIDOCAINE VISCOUS 2% 15 ML UDC MM STA (13:49)
[2017-10-02] MEDS ORDERED: MAG HYDROX/AL HYDROX/SIMETH 30 ML UDC PO STA (13:49)
[2017-10-02] MEDS ORDERED: SODIUM CHLORIDE 0.9% 1,000 ML IV ONE (13:51)
[2017-10-02 14:19] LABS: BASOPHILS % (AUTO) 0.6 %; EOSINOPHILS % (AUTO) 1.2 %; HGB - HEMOGLOBIN 13.2 g/dL (14.0-18.0); LYMPHOCYTES # (AUTO) 0.8 10^3/uL (1.5-3.5); LYMPHOCYTES % (AUTO) 19.3 %; MEAN CORPUSCULAR VOLUME 88.1 fL (80.0-94.0); MEAN PLATELET VOLUME 7.5 fL (7.4-11.4); MONOCYTES # (AUTO) 0.9 10^3/uL (0.0-1.0); MONOCYTES % (AUTO) 21.5 %; NEUTROPHILS # (AUTO) 2.3 10^3/uL (1.5-6.6); NEUTROPHILS % (AUTO) 57.4 %; PLT - PLATELET COUNT 129 10^3/uL (130-450); RED BLOOD COUNT 4.41 10^6/uL (4.70-6.10); RED CELL DISTRIBUTION WIDTH 16.4 % (12.0-15.0); WHITE BLOOD COUNT 4.1 x10^3/uL (4.8-10.8)
[2017-10-02 14:38] LABS: PLATELET ESTIMATE, MANUAL DECREASED (<130,000) (NORMAL); PLATELET MORPHOLOGY NORMAL APPEARANCE (NORMAL); RBC MORPHOLOGY (MULTIPLE) NORMAL APPEARANCE (NORMAL)
[2017-10-02 14:51] LABS: BILIRUBIN,URINE NEGATIVE (NEGATIVE); GLUCOSE, URINE (UA) NEGATIVE (NEGATIVE); KETONES,URINE (UA) NEGATIVE (NEGATIVE); LEUKOCYTE ESTERASE, URINE NEGATIVE (NEGATIVE); NITRITE,URINE NEGATIVE (NEGATIVE); OCCULT BLOOD,URINE NEGATIVE (NEGATIVE); PH,URINE 6.5 PH (5.0-7.5); PROTEIN,URINE NEGATIVE (NEGATIVE); UROBILINOGEN,URINE 0.2 (NORMAL) E.U./dL (NORMAL)
[2017-10-02 14:54] LABS: CLARITY,URINE CLEAR (CLEAR)
[2017-10-02 15:03] LABS: ALBUMIN 4.5 g/dL (3.2-5.5); ALBUMIN/GLOBULIN RATIO 1.7 (1.0-2.2); ALKALINE PHOSPHATASE 56 IU/L (42-121); ALT ALANINE AMINOTRANSFERASE < 10 IU/L (10-60); AST ASPARTATE AMINOTRANSFERASE 15 IU/L (10-42); BILIRUBIN,TOTAL 1.7 mg/dL (0.2-1.0); BUN - BLOOD UREA NITROGEN 13 mg/dL (6-20); CARBON DIOXIDE - CO2 22 mmol/L (21-32); CHLORIDE 98 mmol/L (101-111); GFR - MDRD 73 (>89); GLUCOSE 100 mg/dL (70-100); LIPASE 16 U/L (22-51); MAGNESIUM 1.9 mg/dL (1.7-2.8); SODIUM 130 mmol/L (135-145); TOTAL PROTEIN 7.2 g/dL (6.7-8.2)
[2017-10-02 16:29] VITALS: BP 107/93
== END 2017-10-02 16:30 | disposition home or self-care (01) ==
LOC: ED 13:24
DX: G20 Parkinson's disease (principal); F41.9 Anxiety disorder, unspecified; R55 Syncope and collapse; I10 Essential (primary) hypertension
CPT/HCPCS: 36415; 80053; 81003; 83605; 83690; 83735; 85025; 87070; 87275; 87276; 87430; 93005; 96361; 96374; 99284; A9270; J2060; 81001; 87086

== ENCOUNTER 2017-10-08 13:25 | Outpatient (CLI) | payer OTHER | END 2017-10-08 13:26 | disposition critical access hospital (66) | LOC: EMS 13:25 | PROVIDERS: ATTEND Surgery | DX: R46.4 Slowness and poor responsiveness (principal) | CPT/HCPCS: A0425; A0429 ==

== ENCOUNTER 2017-10-08 13:49 | Emergency (ER) | payer OTHER ==
--- NOTE | 2017-10-08 13:59 | ED Physician Documentation ---
History of Present Illness - Stated complaint Stated Complaint: ALOC - Additonal information Additional information: hx from [id number] male pmhx parkinsons HTN per EMS found in bed unresponsive by PT OT no reported falls or injury no fever cough NVD known no meds changes known no drugs seen in house Review of Systems Unable to obtain: Unresponsive PD PAST MEDICAL HISTORY - Past Medical History Cardiovascular: Hypertension Respiratory: None Neuro: Parkinson's Endocrine/Autoimmune: None GI: None : None HEENT: None Psych: None Musculoskeletal: Chronic back pain Derm: None - Past Surgical History Past Surgical History: No - Present Medications Home Medications: Ambulatory Orders Medication Instructions Recorded Confirmed Carbidopa/Levodopa [Carbidopa-Levo 1 tab PO 5XD 08/10/17 08/10/17 ER 50-200 Tab] Carbidopa/Levodopa 1 tab PO QID PRN 08/10/17 08/10/17 [Carbidopa-Levodopa 25-100 Tab] Citalopram Hydrobromide 20 mg PO DAILY 08/10/17 08/10/17 [Citalopram HBr] Lorazepam [Ativan] 1 mg PO Q6HR PRN #7 tablet 08/10/17 Meloxicam 7.5 mg PO DAILY 08/10/17 08/10/17 - Allergies Allergies/Adverse Reactions: Allergies Allergy/AdvReac Type Severity Reaction Status Date / Time prednisone Allergy Edema Verified 10/02/17 13:30 - Social History Does the pt smoke?: No Smoking Status: Never smoker Does the pt drink ETOH?: No Does the pt have substance abuse?: No - Immunizations Immunizations are current?: Yes - POLST Patient has POLST: No PD ED PE NORMAL - Vitals Vital signs reviewed: Yes - General General: Other (unresponsive to voice or pain, occasionally opens eyes briefly to look around, breathing spont). No: Alert and oriented X 3 - HEENT HEENT: PERRL (2) - Neck Neck: Supple, no meningeal sign - Cardiac Cardiac: RRR - Respiratory Respiratory: No respiratory distress, Clear bilaterally - Abdomen Abdomen: Soft, Non tender - Derm Derm: Normal color, Other (no track johnson) - Extremities Extremities: No deformity - Neuro Neuro: Other (pulls feet away from pain). No: Alert and oriented X 3 Eye Opening: Spontaneous Motor: Withdraws to Pain Verbal: None GCS Score: 9 Results - Vitals Vitals: Vital Signs - 24 hr 10/08/17 10/08/17 10/08/17 13:50 14:00 14:45 Temperature 36.5 C Heart Rate 79 80 77 Respiratory 18 16 Rate Blood Pressure 155/114 H 121/92 H 126/96 H O2 Saturation 93 95 94 10/08/17 10/08/17 15:32 16:42 Temperature Heart Rate 73 78 Respiratory 16 16 Rate Blood Pressure 116/82 H 148/100 H O2 Saturation 96 95 Oxygen O2 Source Room air - EKG (time done) 1402 Rate: Rate (enter#) (78) Rhythm: NSR Coden: Normal Intervals: RBBB Ischemia: Other (rbbb) - Labs Labs: Laboratory Tests 10/08/17 10/08/17 10/08/17 14:13 14:13 14:13 WBC 3.4 L RBC 4.19 L Hgb 12.6 L Hct 36.4 L MCV 86.9 MCH 30.1 MCHC 34.7 RDW 16.8 H Plt Count 128 L MPV 7.4 Neut # 2.1 Lymph # 0.7 L [facility] # 0.6 Eos # 0.0 Baso # 0.0 Absolute Nucleated RBC 0.00 Nucleated RBC % 0.0 Manual Slide Review Indicated RBC Morph Micro Appear 1+ ANISOCYTOSIS Sodium 131 L Potassium 3.8 Chloride 99 L Carbon Dioxide 25 Anion Gap 7.0 BUN 16 Creatinine 1.1 Estimated GFR (MDRD) 65 L Glucose 107 H Lactic Acid 0.9 Calcium 8.7 Total Bilirubin 1.5 H AST 14 ALT < 10 L Alkaline Phosphatase 52 Troponin I Total Protein 7.2 Albumin 4.4 Globulin 2.8 Albumin/Globulin Ratio 1.6 Lipase 17 L TSH Urine Color Urine Clarity Urine pH Ur Specific [place] Urine Protein Urine Glucose (UA) Urine Ketones Urine Occult Blood Urine Nitrite Urine Bilirubin Urine Urobilinogen Ur Leukocyte Esterase Ur Microscopic Review Urine Culture Comments Salicylates < 6.0 Urine Opiates Screen Ur Oxycodone Screen Urine Methadone Screen Ur Propoxyphene Screen Acetaminophen < 10 L Ur Barbiturates Screen Ur Tricyclics Screen Ur Phencyclidine Scrn Ur Amphetamine Screen U Methamphetamines Scrn U Benzodiazepines Scrn Urine Cocaine Screen U Cannabinoids Screen Ethyl Alcohol 6.5 Influenza A (Rapid) Influenza B (Rapid) Influenza Types A,B Ag 10/08/17 10/08/17 10/08/17 14:13 14:13 15:18 WBC RBC Hgb Hct MCV MCH MCHC RDW Plt Count MPV Neut # Lymph # [facility] # Eos # Baso # Absolute Nucleated RBC Nucleated RBC % Manual Slide Review RBC Morph Micro Appear Sodium Potassium Chloride Carbon Dioxide Anion Gap BUN Creatinine Estimated GFR (MDRD) Glucose Lactic Acid Calcium Total Bilirubin AST ALT Alkaline Phosphatase Troponin I 0.04 Total Protein Albumin Globulin Albumin/Globulin Ratio Lipase TSH 1.49 Urine Color YELLOW Urine Clarity CLEAR Urine pH 6.0 Ur Specific [place] 1.010 Urine Protein NEGATIVE Urine Glucose (UA) NEGATIVE Urine Ketones NEGATIVE Urine Occult Blood NEGATIVE Urine Nitrite NEGATIVE Urine Bilirubin NEGATIVE Urine Urobilinogen 0.2 (NORMAL) Ur Leukocyte Esterase NEGATIVE Ur Microscopic Review NOT INDICATED Urine Culture Comments NOT INDICATED Salicylates Urine Opiates Screen NEGATIVE Ur Oxycodone Screen NEGATIVE Urine Methadone Screen NEGATIVE Ur Propoxyphene Screen NEGATIVE Acetaminophen Ur Barbiturates Screen NEGATIVE Ur Tricyclics Screen NEGATIVE Ur Phencyclidine Scrn NEGATIVE Ur Amphetamine Screen NEGATIVE U Methamphetamines Scrn NEGATIVE U Benzodiazepines Scrn NEGATIVE Urine Cocaine Screen NEGATIVE U Cannabinoids Screen NEGATIVE Ethyl Alcohol Influenza A (Rapid) Influenza B (Rapid) Influenza Types A,B Ag 10/08/17 15:20 WBC RBC Hgb Hct MCV MCH MCHC RDW Plt Count MPV Neut # Lymph # [facility] # Eos # Baso # Absolute Nucleated RBC Nucleated RBC % Manual Slide Review RBC Morph Micro Appear Sodium Potassium Chloride Carbon Dioxide Anion Gap BUN Creatinine Estimated GFR (MDRD) Glucose Lactic Acid Calcium Total Bilirubin AST ALT Alkaline Phosphatase Troponin I Total Protein Albumin Globulin Albumin/Globulin Ratio Lipase TSH Urine Color Urine Clarity Urine pH Ur Specific [place] Urine Protein Urine Glucose (UA) Urine Ketones Urine Occult Blood Urine Nitrite Urine Bilirubin Urine Urobilinogen Ur Leukocyte Esterase Ur Microscopic Review Urine Culture Comments Salicylates Urine Opiates Screen Ur Oxycodone Screen Urine Methadone Screen Ur Propoxyphene Screen Acetaminophen Ur Barbiturates Screen Ur Tricyclics Screen Ur Phencyclidine Scrn Ur Amphetamine Screen U Methamphetamines Scrn U Benzodiazepines Scrn Urine Cocaine Screen U Cannabinoids Screen Ethyl Alcohol Influenza A (Rapid) Negative Influenza B (Rapid) Negative Influenza Types A,B Ag - - Rads (name of study) CXR Radiology: See rad report (NACPD) CTH Radiology: See rad report (generalized age related changes no acute process) PD MEDICAL DECISION MAKING - ED course ED course: labs fine except mild pancytopenia which is not new chem fine except AN and bili which are not new EKG RBBB not new and trop is neg neg CTH neg CXR neg UA neg flu swabs neg tox screen nl TSH pt spont recovered s any intervention and is now awake and eating a snack waiting for to return plan to dc came - feels he is close to his baseline - we gave him his PM carbidopa levadopa after confirming dose and made sure he could ambulate with a walker - feels comfortable taking him home though may call EMS for lift assist to help get him from car into house where he can get around more easily Departure - Departure Disposition: 01 Home, Self Care Clinical Impression: Mental status change resolved Condition: Good Follow-Up: LUIZ TINEO MD [Primary Care Provider] - Comments: All of your tests came back fine. We did a CT scan of your head (no stroke bleeding or tumor), tests for infection (all negative) tests for heart liver thyroid and kidney function (all fine) and even a toxin screen (also fine) I am not sure why you were so hard to wake up earlier but you are better now and your test results are reassuring so I think it is OK for you to go home Discharge Date/Time: 10/08/17 18:01
[2017-10-08 14:23] LABS: BASOPHILS % (AUTO) 0.4 %; EOSINOPHILS % (AUTO) 1.1 %; HGB - HEMOGLOBIN 12.6 g/dL (14.0-18.0); LYMPHOCYTES # (AUTO) 0.7 10^3/uL (1.5-3.5); LYMPHOCYTES % (AUTO) 19.9 %; MEAN CORPUSCULAR HEMOGLOBIN 30.1 pg (27.0-31.0); MEAN CORPUSCULAR HGB CONC 34.7 g/dL (32.0-36.0); MEAN CORPUSCULAR VOLUME 86.9 fL (80.0-94.0); MEAN PLATELET VOLUME 7.4 fL (7.4-11.4); MONOCYTES # (AUTO) 0.6 10^3/uL (0.0-1.0); MONOCYTES % (AUTO) 16.9 %; NEUTROPHILS # (AUTO) 2.1 10^3/uL (1.5-6.6); NEUTROPHILS % (AUTO) 61.7 %; PLT - PLATELET COUNT 128 10^3/uL (130-450); RED BLOOD COUNT 4.19 10^6/uL (4.70-6.10); RED CELL DISTRIBUTION WIDTH 16.8 % (12.0-15.0); WHITE BLOOD COUNT 3.4 x10^3/uL (4.8-10.8)
[2017-10-08 14:37] LABS: ALBUMIN 4.4 g/dL (3.2-5.5); ALBUMIN/GLOBULIN RATIO 1.6 (1.0-2.2); ALKALINE PHOSPHATASE 52 IU/L (42-121); ALT ALANINE AMINOTRANSFERASE < 10 IU/L (10-60); AST ASPARTATE AMINOTRANSFERASE 14 IU/L (10-42); BILIRUBIN,TOTAL 1.5 mg/dL (0.2-1.0); BUN - BLOOD UREA NITROGEN 16 mg/dL (6-20); CALCIUM 8.7 mg/dL (8.5-10.3); CARBON DIOXIDE - CO2 25 mmol/L (21-32); CHLORIDE 99 mmol/L (101-111); CREATININE 1.1 mg/dL (0.6-1.2); GFR - MDRD 65 (>89); GLUCOSE 107 mg/dL (70-100); LIPASE 17 U/L (22-51); SALICYLATE < 6.0 mg/dL; SODIUM 131 mmol/L (135-145); TOTAL PROTEIN 7.2 g/dL (6.7-8.2)
[2017-10-08 14:38] LABS: RBC MORPHOLOGY (MULTIPLE) 1+ ANISOCYTOSIS (NORMAL)
[2017-10-08 14:40] LABS: ACETAMINOPHEN < 10 ug/mL (10-30)
--- NOTE | 2017-10-08 15:14 | CT Preliminary Report ---
Exam: CT HEAD W/O IMPRESSION: Generalized age-related cortical atrophic changes without evidence of acute intracranial abnormality. [facility] SITE ID: [id number]
--- NOTE | 2017-10-08 15:21 | CT Report ---
EXAM: CT HEAD EXAM DATE: 10/08/2017 02:46 PM. CLINICAL HISTORY: Unresponsive. Altered mental status. COMPARISON: 08/10/2017. TECHNIQUE: Multiaxial CT images were obtained from the foramen magnum to the vertex. Reformats: Coron al. IV contrast: None. In accordance with CT protocol optimization, one or more of the following dose reduction techniques w ere utilized for this exam: automated exposure control, adjustment of mA and/or KV based on patient s ize, or use of iterative reconstructive technique. FINDINGS: Parenchyma: No intraparenchymal hemorrhage. No evidence of mass, midline shift, or CT findings of acu te infarction. Alanis-white differentiation is distinct. Diffuse chronic microangiopathic white matter changes are evident. Extraaxial Spaces: Normal for age. No subdural or epidural collections identified. Ventricles: The ventricles and cortical sulci are enlarged, consistent with age-related tissue loss. Sinuses and orbits: Imaged paranasal sinuses, orbits, and mastoids show no significant abnormality. Bones: No evidence of fracture or calvarial defect. Other: None. IMPRESSION: Generalized age-related cortical atrophic changes without evidence of acute intracranial abnormality. [facility] Referring Provider Line: [phone] SITE ID: [id number]
[2017-10-08 15:28] LABS: MUDS CUTOFF CONCENTRATIONS CUTOFF CONC BELOW:
[2017-10-08 15:31] LABS: BILIRUBIN,URINE NEGATIVE (NEGATIVE); GLUCOSE, URINE (UA) NEGATIVE (NEGATIVE); KETONES,URINE (UA) NEGATIVE (NEGATIVE); LEUKOCYTE ESTERASE, URINE NEGATIVE (NEGATIVE); NITRITE,URINE NEGATIVE (NEGATIVE); OCCULT BLOOD,URINE NEGATIVE (NEGATIVE); PROTEIN,URINE NEGATIVE (NEGATIVE); UROBILINOGEN,URINE 0.2 (NORMAL) E.U./dL (NORMAL)
[2017-10-08 15:32] LABS: CLARITY,URINE CLEAR (CLEAR)
--- NOTE | 2017-10-08 15:33 | XRAY Preliminary Report ---
Exam: XR CHEST 1 VIEW X-RAY IMPRESSION: No focal consolidation. [facility] SITE ID: [id number]
--- NOTE | 2017-10-08 15:33 | XRAY Report ---
EXAM: CHEST RADIOGRAPHY EXAM DATE: 10/08/2017 02:34 PM. CLINICAL HISTORY: [facility] COMPARISON: Chest radiograph dated 10/08/2017. TECHNIQUE: 1 view. FINDINGS: Lungs/Pleura: No focal opacities evident. No pleural effusion. No pneumothorax. Mediastinum: Within exam limitations, the cardiomediastinal contour is normal. Other: None. IMPRESSION: No focal consolidation. [facility] Referring Provider Line: [phone] SITE ID: [id number]
[2017-10-08 15:42] LABS: AMPHETAMINE SCREEN,URINE NEGATIVE (NEGATIVE); BENZODIAZEPINES SCREEN, URINE NEGATIVE (NEGATIVE); COCAINE SCREEN URINE NEGATIVE (NEGATIVE); METHADONE SCREEN, URINE NEGATIVE (NEGATIVE); METHAMPHETAMINES SCREEN, URINE NEGATIVE (NEGATIVE); OPIATE SCREEN, URINE NEGATIVE (NEGATIVE); OXYCODONE SCREEN, URINE NEGATIVE (NEGATIVE); PROPOXYPHENE SCREEN, URINE NEGATIVE (NEGATIVE); TRICYCLIC ANTIDEPRESSANT,URINE NEGATIVE (NEGATIVE)
[2017-10-08 16:43] VITALS: BP 148/100
[2017-10-08] MEDS ORDERED: CARBIDOPA/LEVODOPA ER 50 MG/200 MG TABLET PO STA (17:32)
== END 2017-10-08 18:01 | disposition home or self-care (01) ==
LOC: EDUNIT# → ED 13:49
DX: R40.1 Stupor (principal); I45.10 Unspecified right bundle-branch block; R94.31 Abnormal electrocardiogram [ECG] [EKG]; G20 Parkinson's disease; I10 Essential (primary) hypertension
CPT/HCPCS: 36415; 51701; 70450; 71045; 80053; 80306; 80307; 80320; 80329; 81003; 83605; 83690; 84443; 84484; 85025; 87040; 87275; 87276; 93005; 99284; A9270; 81001; 87086

== ENCOUNTER 2017-10-10 16:31 | Outpatient (CLI) | payer OTHER | END 2017-10-10 16:32 | disposition critical access hospital (66) | LOC: EMS 16:31 | PROVIDERS: ATTEND Surgery | DX: R46.89 Other symptoms and signs involving appearance and behavior (principal); R46.4 Slowness and poor responsiveness | CPT/HCPCS: A0425; A0429 ==

== ENCOUNTER 2017-10-10 16:57 | Emergency (ER) | payer OTHER ==
[2017-10-10 17:05] VITALS: BP 171/98
[2017-10-10 17:43] LABS: BASOPHILS % (AUTO) 0.8 %; EOSINOPHILS % (AUTO) 0.8 %; HGB - HEMOGLOBIN 12.8 g/dL (14.0-18.0); LYMPHOCYTES # (AUTO) 0.8 10^3/uL (1.5-3.5); LYMPHOCYTES % (AUTO) 21.6 %; MEAN CORPUSCULAR HGB CONC 33.5 g/dL (32.0-36.0); MEAN CORPUSCULAR VOLUME 86.6 fL (80.0-94.0); MEAN PLATELET VOLUME 7.2 fL (7.4-11.4); MONOCYTES # (AUTO) 0.7 10^3/uL (0.0-1.0); MONOCYTES % (AUTO) 18.4 %; NEUTROPHILS # (AUTO) 2.3 10^3/uL (1.5-6.6); NEUTROPHILS % (AUTO) 58.4 %; PLT - PLATELET COUNT 135 10^3/uL (130-450); RED BLOOD COUNT 4.41 10^6/uL (4.70-6.10); RED CELL DISTRIBUTION WIDTH 16.5 % (12.0-15.0); WHITE BLOOD COUNT 3.9 x10^3/uL (4.8-10.8)
[2017-10-10 17:57] LABS: ALBUMIN 4.5 g/dL (3.2-5.5); ALBUMIN/GLOBULIN RATIO 1.6 (1.0-2.2); ALKALINE PHOSPHATASE 52 IU/L (42-121); ALT ALANINE AMINOTRANSFERASE < 10 IU/L (10-60); AST ASPARTATE AMINOTRANSFERASE 17 IU/L (10-42); BILIRUBIN,TOTAL 1.5 mg/dL (0.2-1.0); BUN - BLOOD UREA NITROGEN 14 mg/dL (6-20); CALCIUM 9.5 mg/dL (8.5-10.3); CARBON DIOXIDE - CO2 23 mmol/L (21-32); CHLORIDE 94 mmol/L (101-111); CREATININE 1.2 mg/dL (0.6-1.2); GFR - MDRD 59 (>89); GLUCOSE 105 mg/dL (70-100); LIPASE 13 U/L (22-51); SODIUM 132 mmol/L (135-145); TOTAL PROTEIN 7.3 g/dL (6.7-8.2)
[2017-10-10] MEDS ORDERED: LORazepam 2 MG/ML VIAL IM STA (18:20)
--- NOTE | 2017-10-10 18:24 | ED Physician Documentation ---
History of Present Illness - Stated complaint Stated Complaint: ALOC - Chief complaint Chief Complaint: Neuro - History obtained from History obtained from: Patient, Family, EMS - History of Present Illness Timing: Today Pain level max: 0 Pain level now: 0 Improved by: nothing Worsened by: nothing - Additonal information Additional information: Patient is a 77-year-old male with a history of Parkinson's disease who is on carbidopa levodopa, today when walking into a store had a blank expression, across his face, stared into space and became rigid. His sat him down. Did not fall. Did not strike his head. This is the second episode in 2 weeks. He also had an episode 2 days ago where he was difficult to arouse. His primary care provider and neurologist are both at the [facility]. Neither been contacted about these episodes. He has not had any recent illnesses or trauma. Lives at home with his . She feels like Ativan does help him, has a prescription for this but has not filled it yet. Review of Systems Unable to obtain: Dementia Constitutional: denies: Fever, Chills Nose: denies: Rhinorrhea / runny nose, Congestion Respiratory: denies: Cough GI: denies: Abdominal Pain, Vomiting, Diarrhea Skin: denies: Rash Musculoskeletal: denies: Neck pain, Back pain Neurologic: denies: Headache PD PAST MEDICAL HISTORY - Past Medical History Cardiovascular: Hypertension Respiratory: None Neuro: Parkinson's Endocrine/Autoimmune: None GI: None : None HEENT: None Psych: None Musculoskeletal: Chronic back pain Derm: None - Past Surgical History Past Surgical History: No - Present Medications Home Medications: Ambulatory Orders Medication Instructions Recorded Confirmed Carbidopa/Levodopa [Carbidopa-Levo 1 tab PO 5XD 08/10/17 08/10/17 ER 50-200 Tab] Carbidopa/Levodopa 1 tab PO QID PRN 08/10/17 08/10/17 [Carbidopa-Levodopa 25-100 Tab] Citalopram Hydrobromide 20 mg PO DAILY 08/10/17 08/10/17 [Citalopram HBr] Lorazepam [Ativan] 1 mg PO Q6HR PRN #7 tablet 08/10/17 Meloxicam 7.5 mg PO DAILY 08/10/17 08/10/17 - Allergies Allergies/Adverse Reactions: Allergies Allergy/AdvReac Type Severity Reaction Status Date / Time prednisone Allergy Edema Verified 10/02/17 13:30 - Social History Does the pt smoke?: No Smoking Status: Never smoker Does the pt drink ETOH?: No Does the pt have substance abuse?: No - Immunizations Immunizations are current?: Yes - POLST Patient has POLST: No PD ED PE NORMAL - Vitals Vital signs reviewed: Yes - General General: No acute distress, Well developed/nourished, Other (alert, not oriented to place or time) - HEENT HEENT: Atraumatic, PERRL, Ears normal, Moist mucous membranes - Neck Neck: Supple, no meningeal sign, No bony TTP - Cardiac Cardiac: RRR - Respiratory Respiratory: No respiratory distress, Clear bilaterally - Abdomen Abdomen: Soft, Non tender, Non distended - Back Back: No spinal TTP - Derm Derm: Warm and dry, No rash - Extremities Extremities: No deformity, No tenderness to palpate, Normal ROM s pain - 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, No motor deficit, No sensory deficit, Other (alert) - Psych Psych: Other (flat affect) Results - Vitals Vitals: Vital Signs - 24 hr 10/10/17 16:59 Temperature 36.8 C Heart Rate 89 Respiratory 20 Rate Blood Pressure 171/98 H O2 Saturation 100 Oxygen O2 Source Room air - Labs Labs: Laboratory Tests 10/10/17 10/10/17 17:35 17:35 WBC 3.9 L RBC 4.41 L Hgb 12.8 L Hct 38.1 L MCV 86.6 MCH 29.0 MCHC 33.5 RDW 16.5 H Plt Count 135 MPV 7.2 L Neut # 2.3 Lymph # 0.8 L [place] # 0.7 Eos # 0.0 Baso # 0.0 Absolute Nucleated RBC 0.01 Nucleated RBC % 0.1 Sodium 132 L Potassium 4.0 Chloride 94 L Carbon Dioxide 23 Anion Gap 15.0 H BUN 14 Creatinine 1.2 Estimated GFR (MDRD) 59 L Glucose 105 H Calcium 9.5 Total Bilirubin 1.5 H AST 17 ALT < 10 L Alkaline Phosphatase 52 Total Protein 7.3 Albumin 4.5 Globulin 2.8 Albumin/Globulin Ratio 1.6 Lipase 13 L PD MEDICAL DECISION MAKING - ED course Complexity details: reviewed old records, reviewed results, re-evaluated patient , considered differential, d/w patient, d/w family, d/w [employer] consultant ED course: Patient is a 77-year-old male with a history of Parkinson's disease who has had transient episodes of altered mental status over the past 2 weeks. Possible seizure-like activity? Discussed the case with Dr. Zepeda (neurology at [facility]) and recommends close follow-up with the outpatient clinic. She recommends that they call the clinic on Thursday to speak with Dr. Solis, his neurologist about his symptoms. We will trial him on Ativan [id number] at home to see if this helps the symptoms. No acute findings on laboratory testing. Had CT scans less than 2 days ago. Will not repeat these today. May need an outpatient MRI. No criteria for admission at this time. is comfortable taking him home and will follow up with neurology. Patient and family counseled regarding signs and symptoms for which I believe and urgent re-evaluation would be necessary. Patient with good understanding of and agreement to plan and is comfortable going home at this time This document was made in part using voice recognition software. While efforts are made to proofread this document, sound alike and grammatical errors may occur. Departure - Departure Disposition: 01 Home, Self Care Clinical Impression: Mental status change resolved, Parkinson disease Condition: Good Instructions: Parkinson Disease, Parkinson Disease Caregiver Follow-Up: LUIZ TINEO MD [Primary Care Provider] - Within 3 Days Comments: Follow up with neurology on Thursday. Call Dr. Solis's office for an expedited workup. I spoke with Dr. Katelyn silveira. We are going to try him on ativan 0.5mg by mouth every 6 hours. Return if Art worsens. Discharge Date/Time: 10/10/17 19:19
--- NOTE | 2017-10-12 08:22 | ED Physician Documentation ---
ED Addendum - Addendum Addendum: 10/12/17 08:21 unscheduled return visit - chart accessed for follow up and educational purposes
== END 2017-10-10 19:19 | disposition home or self-care (01) ==
LOC: EDUNIT# → ED 16:57
DX: R41.82 Altered mental status, unspecified (principal); G20 Parkinson's disease; I10 Essential (primary) hypertension
CPT/HCPCS: 36415; 80053; 83690; 85025; 96372; 99283; 99284; J2060

== ENCOUNTER 2019-05-21 12:33 | Outpatient (CLI) | payer MEDICARE, OTHER | END 2019-05-21 12:34 | disposition EMS.NT | LOC: EMS 12:33 | PROVIDERS: ATTEND Surgery | DX: F41.9 Anxiety disorder, unspecified (principal) ==

== ENCOUNTER 2019-06-28 11:48 | Outpatient (CLI) | payer MEDICARE, MEDICAID, OTHER | END 2019-06-28 11:49 | disposition critical access hospital (66) | LOC: EMS 11:48 | PROVIDERS: ATTEND Surgery | DX: R41.82 Altered mental status, unspecified (principal) | CPT/HCPCS: A0425; A0429 ==

== ENCOUNTER 2019-06-28 11:51 | Emergency (ER) | payer MEDICARE, MEDICAID ==
--- NOTE | 2019-06-28 12:04 | ED Physician Documentation ---
History of Present Illness - Stated complaint Stated Complaint: DEC LOC - Additonal information Additional information: A this is a 79-year-old male with a history of Parkinson's disease, hypertension, presents with decreased level of consciousness. History is provided by patient's is patient is not able to speak to me. Patient at baseline is ambulatory with a walker, he is able to hold a conversation and make his needs known. This morning at 10 30-11 patient's notified by his deputy attorney general that he was not feeling well, he reportedly laid down and stated that he needed to come to the hospital. He was unable to say exactly why. When she arrived home at around 11 AM, she found to be poorly responsive, he was breathing but he was not following commands. EMS was called, and he was brought here. By the time he arrived here he was responding to his , mouthing simple words, and moving his arms, but is still less responsive than usual. Patient is not on any narcotic medications or on any benzodiazepines, there is been no changes to his medications recently. He did not have any falls. He denies chest pain, headache, or belly pain by shaking his head. He nods yes when asked if he feels confused. Review of Systems Unable to obtain: Other (Unable to obtain complete ROS due to mental status) Constitutional: denies: Fever Cardiac: denies: Chest pain / pressure Respiratory: denies: Dyspnea GI: denies: Abdominal Pain, Vomiting Neurologic: reports: Generalized weakness PD PAST MEDICAL HISTORY - Past Medical History Cardiovascular: Hypertension Respiratory: None Endocrine/Autoimmune: None GI: None : None HEENT: None Psych: None Musculoskeletal: Chronic back pain Derm: None - Past Surgical History Past Surgical History: No - Present Medications Home Medications: Ambulatory Orders Medication Instructions Recorded Confirmed Carbidopa/Levodopa [Carbidopa-Levo 1 tab PO 5XD 08/10/17 08/10/17 ER 50-200 Tab] Carbidopa/Levodopa 1 tab PO QID PRN 08/10/17 08/10/17 [Carbidopa-Levodopa 25-100 Tab] Citalopram Hydrobromide 20 mg PO DAILY 08/10/17 08/10/17 [Citalopram HBr] Lorazepam [Ativan] 1 mg PO Q6HR PRN #7 tablet 08/10/17 Meloxicam 7.5 mg PO DAILY 08/10/17 08/10/17 - Allergies Allergies/Adverse Reactions: Allergies Allergy/AdvReac Type Severity Reaction Status Date / Time prednisone Allergy Edema Verified 10/02/17 13:30 - Social History Does the pt smoke?: No Smoking Status: Never smoker Does the pt drink ETOH?: No Does the pt have substance abuse?: No - Immunizations Immunizations are current?: Yes - POLST Patient has POLST: No PD ED PE NORMAL - Vitals Vital signs reviewed: Yes - General General: Other (Somnolent, pill-rolling tremor in bilateral upper arms. Opens eyes and tracks) - HEENT HEENT: Atraumatic, Other (No tenderness or hematomas, pupils are 2 mm and reactive bilaterally.) - Neck Neck: Supple, no meningeal sign - Cardiac Cardiac: RRR - Respiratory Respiratory: No respiratory distress, Clear bilaterally - Abdomen Abdomen: Soft, Non tender, Non distended - Derm Derm: Warm and dry - Extremities Extremities: No deformity - Neuro Neuro: Other (Somnolent, follows commands, and opens eyes. He tracks with his extraocular movements intact. Pupils are 2 mm and reactive bilaterally. When asked to smile he has some twitching of his face, but seems that he is unable to sustain a smile. He holds his bilateral arms up at 45 degrees for 10 seconds with minimal drift bilaterally, strength appears symmetric. He is unable to lift either of his legs off the bed. He is able to dorsiflex his ankles with 3 out of 5 strength, and plantarflex them at 3 out of 5 strength bilaterally. Weakness appears symmetric. When asked to say his name he states Garett, but his voice is weak and it is difficult to discern any other words.) - Psych Psych: Normal mood, Normal affect Results - Vitals Vitals: Oxygen O2 Source Room air - EKG (time done) 12:31 Other comments: Other comments (Rate 65, rhythm sinus, there is a right bundle branch block, T wave inversions in V2 and V3. There is no ST segment elevation or depression. There is a PVC) - Labs Labs: Laboratory Tests 06/28/19 06/28/19 06/28/19 12:35 12:35 12:35 WBC 3.7 L RBC 4.00 L Hgb 11.9 L Hct 38.7 L MCV 96.8 H MCH 29.8 MCHC 30.7 L RDW 15.8 H Plt Count 80 L MPV 10.9 Neut # (Auto) 1.8 Lymph # (Auto) 1.0 L [place] # (Auto) 0.8 Eos # (Auto) 0.0 Baso # (Auto) 0.0 Absolute Nucleated RBC 0.00 Nucleated RBC % 0.0 PT 14.2 H INR 1.3 H APTT 44.7 H Sodium 144 Potassium 4.4 Chloride 106 Carbon Dioxide 31 Anion Gap 7.0 BUN 25 H Creatinine 1.1 Estimated GFR (MDRD) 65 L Glucose 98 Calcium 9.3 Total Bilirubin 1.4 H AST 15 ALT < 10 L Alkaline Phosphatase 60 Troponin I High Sens Total Protein 7.2 Albumin 4.4 Globulin 2.8 Albumin/Globulin Ratio 1.6 Lipase 29 TSH Urine Color Urine Clarity Urine pH Ur Specific [place] Urine Protein Urine Glucose (UA) Urine Ketones Urine Occult Blood Urine Nitrite Urine Bilirubin Urine Urobilinogen Ur Leukocyte Esterase Urine RBC Urine WBC Ur Epithelial Cells Ur Squamous Epith Cells Urine Bacteria Ur Microscopic Review Urine Culture Comments Urine Opiates Screen Ur Oxycodone Screen Urine Methadone Screen Ur Propoxyphene Screen Ur Barbiturates Screen Ur Tricyclics Screen Ur Phencyclidine Scrn Ur Amphetamine Screen U Methamphetamines Scrn U Benzodiazepines Scrn Urine Cocaine Screen U Cannabinoids Screen 06/28/19 06/28/19 06/28/19 12:35 12:35 12:50 WBC RBC Hgb Hct MCV MCH MCHC RDW Plt Count MPV Neut # (Auto) Lymph # (Auto) [place] # (Auto) Eos # (Auto) Baso # (Auto) Absolute Nucleated RBC Nucleated RBC % PT INR APTT Sodium Potassium Chloride Carbon Dioxide Anion Gap BUN Creatinine Estimated GFR (MDRD) Glucose Calcium Total Bilirubin AST ALT Alkaline Phosphatase Troponin I High Sens 7.0 Total Protein Albumin Globulin Albumin/Globulin Ratio Lipase TSH 1.95 Urine Color YELLOW Urine Clarity CLEAR Urine pH 6.0 Ur Specific [place] 1.025 Urine Protein NEGATIVE Urine Glucose (UA) NEGATIVE Urine Ketones TRACE Urine Occult Blood SMALL H Urine Nitrite NEGATIVE Urine Bilirubin NEGATIVE Urine Urobilinogen 1 (NORMAL) Ur Leukocyte Esterase NEGATIVE Urine RBC 6-10 H Urine WBC 0-3 Ur Epithelial Cells RARE Renal Tubular Ur Squamous Epith Cells NONE SEEN Urine Bacteria Rare Ur Microscopic Review INDICATED Urine Culture Comments NOT INDICATED Urine Opiates Screen NEGATIVE Ur Oxycodone Screen NEGATIVE Urine Methadone Screen NEGATIVE Ur Propoxyphene Screen NEGATIVE Ur Barbiturates Screen NEGATIVE Ur Tricyclics Screen POSITIVE H Ur Phencyclidine Scrn NEGATIVE Ur Amphetamine Screen NEGATIVE U Methamphetamines Scrn NEGATIVE U Benzodiazepines Scrn NEGATIVE Urine Cocaine Screen NEGATIVE U Cannabinoids Screen NEGATIVE - Rads (name of study) CT head WO Radiology: Other (Unchanged age-related brain parenchymal volume loss and chronic ischemic microvascular changes without acute intracranial abnormality.) CXR Radiology: Other (Hypoventilatory changes with minimal bibasilar opacities favoring atelectasis, cardiomegaly.) PD MEDICAL DECISION MAKING - ED course Complexity details: considered differential (UTI, head bleed, electrolyte abnormality, ACS, seizure, dysrhythmia, PNA, medication side effect) ED course: Pt presents and is responsive without focal deficit but with a weak voice and is somewhat somnolent. CT head and CXR unrevealing. Labs are notable for chronic mild leukopenia, mild anemia which is also chronic, negative UA, unrevealing Utox. Troponin negative and EKG without convincing signs of ischemia and dysrhythmia, and patient denies any chest pain, abdominal pain, or shortness of breath. He is afebrile. On repeat exam patient is awake, alert, and feeling well. His symptoms have completely resolved. No tongue biting or incontinence or LOC to suggest seizure. He remembers the entire episode and states that he thinks he became anxious and felt out of it because his routine was disrupted by being away from home. His also agrees that he is at his baseline and very well-appearing. I discussed that I do not have a clear explanation for his symptoms, but he would like to go home and given his improvement I think this is reasonable. He is not on any significantly sedating mediations, and no recent changes were performed to his medications. I recommended close PCP follow up and reviewed strict return precautions and patient was discharged home in the care of his . Departure - Departure Disposition: 01 Home, Self Care Clinical Impression: Somnolence Condition: Good Follow-Up: LUIZ TINEO MD [Primary Care Provider] - Within 1 week Comments: You were seen today for some sleepiness and being less responsive, the scan of your head and your labs do not show an obvious cause for this, and given that you are feeling better, I think it is safe for you to go home. If you develop any fever, trouble breathing, more confusion, or any other concerning symptoms please return to the emergency department. Otherwise please follow-up with your primary care provider. You did have some chronic abnormalities on your labs including a somewhat elevated bilirubin and an anemia and low platelets, please follow-up on these lab results with your primary care provider. Discharge Date/Time: 06/28/19 15:13
[2019-06-28] MEDS ORDERED: NALOXONE 0.4 MG/ML VIAL IVP STA (12:18)
[2019-06-28 12:45] LABS: BASOPHILS % (AUTO) 0.3 %; EOSINOPHILS % (AUTO) 0.8 %; HGB - HEMOGLOBIN 11.9 g/dL (14.0-18.0); LYMPHOCYTES % (AUTO) 27.3 %; MEAN CORPUSCULAR HEMOGLOBIN 29.8 pg (27.0-31.0); MEAN CORPUSCULAR HGB CONC 30.7 g/dL (32.0-36.0); MEAN CORPUSCULAR VOLUME 96.8 fL (80.0-94.0); MEAN PLATELET VOLUME 10.9 fL (7.4-11.4); MONOCYTES # (AUTO) 0.8 10^3/uL (0.0-1.0); MONOCYTES % (AUTO) 22.5 %; NEUTROPHILS # (AUTO) 1.8 10^3/uL (1.5-6.6); PLT - PLATELET COUNT 80 10^3/uL (130-450); RED CELL DISTRIBUTION WIDTH 15.8 % (12.0-15.0); WHITE BLOOD COUNT 3.7 x10^3/uL (4.8-10.8)
[2019-06-28 12:50] LABS: INR 1.3 (0.8-1.2); PT - PROTHROMBIN TIME 14.2 secs (9.9-12.6)
--- NOTE | 2019-06-28 12:50 | XRAY Report ---
Reason: chest pain Procedure Date: 06/28/2019 Accession Number: [id number] / [id number] Procedure: XR - Chest 1 View X-Ray CPT Code: 02444 FULL RESULT: EXAM: CHEST RADIOGRAPHY EXAM DATE: 06/28/2019 12:42 PM. CLINICAL HISTORY: Chest pain. COMPARISON: CHEST 1 VIEW 10/08/2017 2:26 PM. TECHNIQUE: 1 view. FINDINGS: Lungs/Pleura: Lung volumes are low. Minimal bibasilar opacities. No vascular congestion. No pneumothorax. Mediastinum: Heart is enlarged. Aorta is tortuous. The image is rotated. Other: None. IMPRESSION: 1. Hypoventilatory changes with minimal bibasilar opacities favoring atelectasis. 2. Cardiomegaly. RADIA
[2019-06-28 12:53] LABS: MUDS CUTOFF CONCENTRATIONS CUTOFF CONC BELOW:
[2019-06-28 12:56] LABS: ALBUMIN 4.4 g/dL (3.2-5.5); ALBUMIN/GLOBULIN RATIO 1.6 (1.0-2.2); ALKALINE PHOSPHATASE 60 IU/L (42-121); ALT ALANINE AMINOTRANSFERASE < 10 IU/L (10-60); AST ASPARTATE AMINOTRANSFERASE 15 IU/L (10-42); BILIRUBIN,TOTAL 1.4 mg/dL (0.2-1.0); BUN - BLOOD UREA NITROGEN 25 mg/dL (6-20); CALCIUM 9.3 mg/dL (8.5-10.3); CARBON DIOXIDE - CO2 31 mmol/L (21-32); CHLORIDE 106 mmol/L (101-111); CREATININE 1.1 mg/dL (0.6-1.2); GFR - MDRD 65 (>89); GLUCOSE 98 mg/dL (70-100); LIPASE 29 U/L (22-51); SODIUM 144 mmol/L (135-145); TOTAL PROTEIN 7.2 g/dL (6.7-8.2)
[2019-06-28 12:57] LABS: BILIRUBIN,URINE NEGATIVE (NEGATIVE); GLUCOSE, URINE (UA) NEGATIVE (NEGATIVE); KETONES,URINE (UA) TRACE mg/dL (NEGATIVE); LEUKOCYTE ESTERASE, URINE NEGATIVE (NEGATIVE); NITRITE,URINE NEGATIVE (NEGATIVE); OCCULT BLOOD,URINE SMALL (NEGATIVE); PROTEIN,URINE NEGATIVE (NEGATIVE); UROBILINOGEN,URINE 1 (NORMAL) E.U./dL (NORMAL)
[2019-06-28 12:58] LABS: PARTIAL THROMBOPLASTIN TIME 44.7 secs (24.9-33.3)
[2019-06-28 13:02] LABS: CLARITY,URINE CLEAR (CLEAR)
[2019-06-28 13:06] LABS: AMPHETAMINE SCREEN,URINE NEGATIVE (NEGATIVE); BENZODIAZEPINES SCREEN, URINE NEGATIVE (NEGATIVE); COCAINE SCREEN URINE NEGATIVE (NEGATIVE); METHADONE SCREEN, URINE NEGATIVE (NEGATIVE); METHAMPHETAMINES SCREEN, URINE NEGATIVE (NEGATIVE); OPIATE SCREEN, URINE NEGATIVE (NEGATIVE); OXYCODONE SCREEN, URINE NEGATIVE (NEGATIVE); PROPOXYPHENE SCREEN, URINE NEGATIVE (NEGATIVE); TRICYCLIC ANTIDEPRESSANT,URINE POSITIVE (NEGATIVE)
[2019-06-28 13:11] LABS: EPITHELIAL CELLS,UR RARE Renal Tubular /HPF (<= Few); SQUAMOUS EPITHELIAL CELL,UR NONE SEEN (<= Few)
[2019-06-28 13:12] LABS: BACTERIA,URINE Rare /HPF (None Seen)
--- NOTE | 2019-06-28 13:39 | CT Report ---
Reason: decreased LOC Procedure Date: 06/28/2019 Accession Number: [id number] / [id number] Procedure: CT - HEAD WO CPT Code: FULL RESULT: EXAM: CT HEAD EXAM DATE: 06/28/2019 01:11 PM. CLINICAL HISTORY: Decreased LOC. COMPARISON: HEAD W/O 10/08/2017 2:37 PM. TECHNIQUE: Multiaxial CT images were obtained from the foramen magnum to the vertex. Reformats: Sagittal and coronal. IV contrast: None. In accordance with CT protocol optimization, one or more of the following dose reduction techniques were utilized for this exam: automated exposure control, adjustment of mA and/or KV based on patient size, or use of iterative reconstructive technique. FINDINGS: Parenchyma: Mild age-related generalized brain parenchymal volume loss is unchanged. There is also mild periventricular low attenuation consistent with chronic age-related white matter disease. No intracranial hemorrhage. No CT manifestation of acute infarct. Extraaxial Spaces: Normal for age. No subdural or epidural collections identified. Ventricles: Mild ventriculomegaly related to brain parenchymal volume loss, unchanged. Sinuses and Orbits: Imaged paranasal sinuses, orbits, and mastoids show no significant abnormality. Bones: No evidence of fracture or calvarial defect. Other: None. IMPRESSION: Unchanged age-related brain parenchymal volume loss and chronic ischemic microvascular changes. No acute intracranial abnormality. RADIA
[2019-06-28 15:01] VITALS: BP 149/93
== END 2019-06-28 15:13 | disposition home or self-care (01) ==
LOC: EDUNIT# → ED 11:51
DX: R40.0 Somnolence (principal); G20 Parkinson's disease; I10 Essential (primary) hypertension
CPT/HCPCS: 36415; 70450; 71045; 80053; 80306; 81001; 81003; 82140; 82803; 83605; 83690; 84443; 84484; 85025; 85610; 85730; 87086; 93005; 96374; 99283

== ENCOUNTER 2020-09-12 11:59 | Outpatient (CLI) | payer MEDICARE, MEDICAID | END 2020-09-12 12:00 | disposition critical access hospital (66) | LOC: EMS 11:59 | PROVIDERS: ATTEND Surgery | DX: R40.4 Transient alteration of awareness (principal) | CPT/HCPCS: A0425; A0429 ==

== ENCOUNTER 2020-09-12 12:06 | Emergency (ER) | payer MEDICARE, MEDICAID ==
[2020-09-12] MEDS ORDERED: SODIUM CHLORIDE 0.9% 1,000 ML IV STA (12:11)
--- NOTE | 2020-09-12 12:14 | ED Physician Documentation ---
PD HPI ALTERED MENTAL STATUS - Stated complaint Stated Complaint: ALOC - History obtained from History obtained from: EMS - Additional information Additional information: 80-year-old gentleman with history of Parkinson's presents from home with altered mental status. Reportedly became progressively confused either last night or this morning. This was preceded by some anxiety. No report of new medications or other specific complaints. He is nonverbal so all the history is from paramedics. Review of Systems Unable to obtain: AMS, Confused PD PAST MEDICAL HISTORY - Past Medical History Cardiovascular: Hypertension Respiratory: None Neuro: Parkinson's, Tremors Endocrine/Autoimmune: None GI: None, Other : Frequency HEENT: None Psych: Depression, Anxiety, Panic attacks Musculoskeletal: Chronic back pain Derm: None - Past Surgical History Past Surgical History: No General: Bowel surgery - Present Medications Home Medications: Ambulatory Orders Medication Instructions Recorded Confirmed Carbidopa/Levodopa [Carbidopa-Levo 1 tab PO 5XD 08/10/17 04/10/20 ER 50-200 Tab] Carbidopa/Levodopa 1 tab PO BID 08/10/17 04/10/20 [Carbidopa-Levodopa 25-100 Tab] Meloxicam 7.5 mg PO DAILY 08/10/17 04/10/20 Entacapone [Comtan] 200 mg PO 5XD 03/19/20 04/10/20 Melatonin 3 mg PO DAILY PM 03/19/20 04/10/20 QUEtiapine [SEROquel] 50 mg PO QPM 03/19/20 04/10/20 Sertraline HCl [Zoloft] 100 mg PO DAILY 03/19/20 04/10/20 Acetaminophen [Tylenol] 650 mg PO Q6H PRN #30 tablet 03/27/20 04/10/20 Ferrous Sulfate 325 mg PO DAILY #15 tablet 03/27/20 04/10/20 Physical Therapy 1 unit TD ONCE #1 09/12/20 - Allergies Allergies/Adverse Reactions: Allergies Allergy/AdvReac Type Severity Reaction Status Date / Time prednisone Allergy Edema Verified 09/12/20 12:15 - Social History Does the pt smoke?: No Smoking Status: Never smoker Does the pt drink ETOH?: No Does the pt have substance abuse?: No - Immunizations Immunizations are current?: Yes - POLST Patient has POLST: No PD ED PE NORMAL - Vitals Vital signs reviewed: Yes - General General: Other (Alert/makes eye contact. Non verbal, very dry MM. does not follow commands) - HEENT HEENT: Other (possible right gaze pref, but will look left) - Neck Neck: Supple, no meningeal sign - Cardiac Cardiac: RRR, No murmur - Respiratory Respiratory: No respiratory distress, Clear bilaterally - Abdomen Abdomen: Soft, Non tender - Back Back: No CVA TTP, No spinal TTP - Derm Derm: Normal color, Warm and dry - Extremities Extremities: No edema, No calf tenderness / cord - Neuro Eye Opening: To Voice Motor: Withdraws to Pain Verbal: None GCS Score: 8 Results - Vitals Vitals: Vital Signs - 24 hr 09/12/20 09/12/20 09/12/20 12:10 12:50 13:20 Temperature 36.6 C Heart Rate 70 63 64 Respiratory 18 18 19 Rate Blood Pressure 118/106 H 126/87 H 152/93 H O2 Saturation 99 100 99 09/12/20 09/12/20 09/12/20 13:50 14:00 14:30 Temperature Heart Rate 60 65 66 Respiratory 18 18 19 Rate Blood Pressure 145/96 H 123/96 H 155/93 H O2 Saturation 98 97 100 09/12/20 09/12/20 09/12/20 15:00 15:30 16:00 Temperature Heart Rate 68 72 73 Respiratory 16 22 18 Rate Blood Pressure 161/87 H 109/87 H 102/79 O2 Saturation 99 99 98 09/12/20 09/12/20 16:30 17:00 Temperature Heart Rate 75 70 Respiratory 19 20 Rate Blood Pressure 110/80 108/68 O2 Saturation 99 98 Oxygen O2 Source Room air - EKG (time done) 1213 Rate: Rate (enter#) (70) Rhythm: NSR [place]: Normal Intervals: RBBB Ischemia: Normal ST segments Computer interpretation: Agree with computer - Labs Labs: Laboratory Tests 09/12/20 09/12/20 09/12/20 12:27 12:27 12:27 WBC 3.0 L RBC 3.27 L Hgb 10.2 L Hct 32.0 L MCV 97.9 H MCH 31.2 H MCHC 31.9 L RDW 17.1 H Plt Count 70 L MPV 11.5 H Neut # (Auto) Not Reportable Lymph # (Auto) Not Reportable [place] # (Auto) Not Reportable Eos # (Auto) Not Reportable Baso # (Auto) Not Reportable Absolute Nucleated RBC Not Reportable Total Counted 100 Band Neuts % (Manual) 0 Abnorm Lymph % (Manual) 0 Nucleated RBC % Not Reportable Neutrophils # (Manual) 1.5 Lymphocytes # (Manual) 0.8 L Monocytes # (Manual) 0.7 Eosinophils # (Manual) 0.0 Basophils # (Manual) 0.0 Differential Comment MANUAL DIFFERENTIAL Manual Slide Review Indicated WBC Morphology NORMAL APPEARANCE Platelet Estimate DECREASED (<130,000) Platelet Morphology NORMAL APPEARANCE RBC Morph Micro Appear NORMAL APPEARANCE Sodium 137 Potassium 4.2 Chloride 103 Carbon Dioxide 25 Anion Gap 9.0 BUN 24 H Creatinine 1.3 H Estimated GFR (MDRD) 53 L Glucose 102 H Lactic Acid < 0.3 L Calcium 9.0 Total Bilirubin 1.1 H AST 11 ALT < 10 L Alkaline Phosphatase 55 Troponin I High Sens B-Natriuretic Peptide Total Protein 6.7 Albumin 4.2 Globulin 2.5 Albumin/Globulin Ratio 1.7 Lipase 30 Nasal Adenovirus (PCR) Nasal B. parapertussis DNA (PCR) Nasal Coronavir 229E PCR Nasal Coronavir HKU1 PCR Nasal Coronavir NL63 PCR Nasal Coronavir OC43 PCR Nasal Enterovir/Rhinovir PCR Nasal Influenza B PCR Nasal Influenza A PCR Nasal Parainfluen 1 PCR Nasal Parainfluen 2 PCR Nasal Parainfluen 3 PCR Nasal Parainfluen 4 PCR Nasal RSV (PCR) Nasal B.pertussis DNA PCR Nasal C.pneumoniae (PCR) [place] Human Metapneumo PCR Nasal M.pneumoniae (PCR) Nasal SARS-CoV-2 (PCR) Ethyl Alcohol < 5.0 09/12/20 09/12/20 09/12/20 12:36 12:36 14:27 WBC RBC Hgb Hct MCV MCH MCHC RDW Plt Count MPV Neut # (Auto) Lymph # (Auto) [place] # (Auto) Eos # (Auto) Baso # (Auto) Absolute Nucleated RBC Total Counted Band Neuts % (Manual) Abnorm Lymph % (Manual) Nucleated RBC % Neutrophils # (Manual) Lymphocytes # (Manual) Monocytes # (Manual) Eosinophils # (Manual) Basophils # (Manual) Differential Comment Manual Slide Review WBC Morphology Platelet Estimate Platelet Morphology RBC Morph Micro Appear Sodium Potassium Chloride Carbon Dioxide Anion Gap BUN Creatinine Estimated GFR (MDRD) Glucose Lactic Acid Calcium Total Bilirubin AST ALT Alkaline Phosphatase Troponin I High Sens 12.2 B-Natriuretic Peptide 253 H Total Protein Albumin Globulin Albumin/Globulin Ratio Lipase Nasal Adenovirus (PCR) NOT DETECTED Nasal B. parapertussis DNA (PCR) NOT DETECTED Nasal Coronavir 229E PCR NOT DETECTED Nasal Coronavir HKU1 PCR NOT DETECTED Nasal Coronavir NL63 PCR NOT DETECTED Nasal Coronavir OC43 PCR NOT DETECTED Nasal Enterovir/Rhinovir PCR NOT DETECTED Nasal Influenza B PCR NOT DETECTED Nasal Influenza A PCR NOT DETECTED Nasal Parainfluen 1 PCR NOT DETECTED Nasal Parainfluen 2 PCR NOT DETECTED Nasal Parainfluen 3 PCR NOT DETECTED Nasal Parainfluen 4 PCR NOT DETECTED Nasal RSV (PCR) NOT DETECTED Nasal B.pertussis DNA PCR NOT DETECTED Nasal C.pneumoniae (PCR) NOT DETECTED [place] Human Metapneumo PCR NOT DETECTED Nasal M.pneumoniae (PCR) NOT DETECTED Nasal SARS-CoV-2 (PCR) NOT DETECTED Ethyl Alcohol - Rads (name of study) Ct Head Radiology: EMP read contemporaneously (NAD) 1v chest Radiology: EMP read contemporaneously (poss chf) PD MEDICAL DECISION MAKING - ED course ED course: History from at bedside, corroborates what the paramedics had told me. She also reports that recently he has been having low blood pressures in the range of 80/60 maybe for a week or 2. At baseline he walks with a walker and is slightly foggy from his medications but no dementia. Over the course of his ED stay he got some fluids and was feeling much better. He was back to his usual baseline per the . Given his leukopenia/lymphopenia coronavirus was checked and negative. He does have a worsening generalized pancytopenia. The remainder of his work-up was negative. There was borderline signs of potentially CHF but this was not present clinically. Departure - Departure Disposition: 01 Home, Self Care Clinical Impression: Parkinson disease, Delirium Condition: Stable Record reviewed to determine appropriate education?: Yes Instructions: Parkinson Disease Prescriptions: Physical Therapy 1 unit TD ONCE #1 Comments: Very common for people with Parkinson's disease to develop an occasional delirium. Thankfully his was easy to fix or at least observe today. Return for new or worsening symptoms. Follow-up with your primary care physician, next available appointment. Discharge Date/Time: 09/12/20 17:13
[2020-09-12 12:37] LABS: BASOPHILS % (AUTO) 0.3 %; EOSINOPHILS % (AUTO) 0.7 %; HGB - HEMOGLOBIN 10.2 g/dL (14.0-18.0); LYMPHOCYTES % (AUTO) 23.8 %; MEAN CORPUSCULAR HEMOGLOBIN 31.2 pg (27.0-31.0); MEAN CORPUSCULAR HGB CONC 31.9 g/dL (32.0-36.0); MEAN CORPUSCULAR VOLUME 97.9 fL (80.0-94.0); MEAN PLATELET VOLUME 11.5 fL (7.4-11.4); MONOCYTES % (AUTO) 23.5 %; NEUTROPHILS % (AUTO) 50.7 %; PLT - PLATELET COUNT 70 10^3/uL (130-450); RED BLOOD COUNT 3.27 10^6/uL (4.70-6.10); RED CELL DISTRIBUTION WIDTH 17.1 % (12.0-15.0)
[2020-09-12 12:50] LABS: ALBUMIN 4.2 g/dL (3.2-5.5); ALBUMIN/GLOBULIN RATIO 1.7 (1.0-2.2); ALKALINE PHOSPHATASE 55 IU/L (42-121); ALT ALANINE AMINOTRANSFERASE < 10 IU/L (10-60); AST ASPARTATE AMINOTRANSFERASE 11 IU/L (10-42); BILIRUBIN,TOTAL 1.1 mg/dL (0.2-1.0); BUN - BLOOD UREA NITROGEN 24 mg/dL (6-20); CARBON DIOXIDE - CO2 25 mmol/L (21-32); CHLORIDE 103 mmol/L (101-111); CREATININE 1.3 mg/dL (0.6-1.2); GLUCOSE 102 mg/dL (70-100); LIPASE 30 U/L (22-51); SODIUM 137 mmol/L (135-145); TOTAL PROTEIN 6.7 g/dL (6.7-8.2)
--- NOTE | 2020-09-12 13:02 | XRAY Report ---
PROCEDURE: Chest 1 View X-Ray INDICATIONS: altered TECHNIQUE: One view of the chest was acquired. COMPARISON: 04/10/2020 comparison plain film FINDINGS: Surgical changes and devices: None. Lungs and pleura: No pleural effusions or pneumothorax. Lungs are slightly edematous. Mediastinum: Mediastinal contours appear normal. Heart size is at the upper limits of normal. Bones and chest wall: No suspicious bony lesions. Overlying soft tissues appear unremarkable. IMPRESSION: Slight pulmonary edema, better seen on the right than the left, with heart size at the upper limits o f normal. No definite consolidative pneumonia but the appearance raises concern for early acute CHF. Reviewed by: Sedrick Zaidi MD on 09/12/2020 1:01 PM PST Approved by: Sedrick Zaidi MD on 09/12/2020 1:01 PM PST Station ID: [id number]
--- NOTE | 2020-09-12 13:11 | CT Report ---
PROCEDURE: HEAD WO INDICATIONS: altered TECHNIQUE: Noncontrast 4.5 mm thick angled axial sections acquired from the foramen magnum to the vertex. For r adiation dose reduction, the following was used: automated exposure control, adjustment of mA and/or kV according to patient size. COMPARISON: 06/28/2018, 10/08/2017, 08/10/2017. FINDINGS: Image quality: Excellent. CSF spaces: Basal cisterns are patent. No extra-axial fluid collections. Ventricles are normal in size and shape. Brain: No midline shift. No intracranial masses or hemorrhage. Alanis-white matter interface is norm al. Skull and face: There is a stable likely sebaceous cyst seen on the left posteriorly and laterally, a s on series 3 image 9 and on series 5 image 30, measuring up to 12 mm. Calvarium and visualized facia l bones are intact, without suspicious lesions. Sinuses: Visualized sinuses and mastoids are clear. IMPRESSION: No significant intracranial abnormality is seen. Stable study compared to the priors, with age-appropriate brain parenchymal volume loss and chronic s mall vessel ischemic change. Stable presumed left posterior sebaceous cyst. Reviewed by: Avel Andersno MD on 09/12/2020 12:10 PM [place] Approved by: Avel Anderson MD on 09/12/2020 12:10 PM [place] Station ID: [id number]
--- OUTSIDE RECORDS SUMMARY | 2020-09-12 13:12 | EXTERNAL MEDICAL SUMMARY RPT | Continuity of Care Document ---
:1940 Demographics Phone Unavailable Preferred Language Unknown Marital Status Unknown Alevism Affiliation Unknown Race Unknown Ethnic Group Unknown Author Organization [place] Address [address] [phone] Phone Care Team Providers Name Role Phone NOMAN Unavailable Unavailable Problems date description facility 2020-03-18 23:54 ACUTE POSTHEMORRHAGIC ANEMIA [facility] 2020-03-18 23:54 ELEVATED WHITE BLOOD CELL COUNT, [facility] UNSPECIFIED 2020-03-18 23:54 INTESTNL ADHESIONS, UNSP TO [facility] PARTIAL VERSUS COMPLETE OBST 2020-03-18 23:54 DISORIENTATION, UNSPECIFIED [facility] 2020-03-18 23:54 ADVERSE EFFECT OF UNSPECIFIED [facility] NARCOTICS, INITIAL ENCOUNTER 2020-03-18 23:54 OTHER NURSING HOME (CURRENT) DRUG [facility] THERAPY 2020-03-18 23:54 IRON DEFICIENCY ANEMIA, [facility] UNSPECIFIED 2020-03-18 23:54 ANXIETY DISORDER, UNSPECIFIED [facility] 2020-03-18 23:[address] 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) 2020-03-18 23:54 TACHYCARDIA, UNSPECIFIED [facility] 2020-03-18 23:[address] IN HOSPITAL PLACE [facility] 2020-03-18 23:54 ENCOUNTER FOR SCREENING FOR OTHER [facility] VIRAL DISEASES 2020-03-18 23:54 PHYSICAL RESTRAINT STATUS [facility] Allergies date description facility prednisone [facility] Procedures date description facility 2020-03-18 23:54 DRAINAGE OF STOMACH WITH DRAINAGE [facility] DEVICE, VIA OPENING date description facility 2020-03-18 23:54 EXCISION OF SMALL INTESTINE, OPEN [facility] APPROACH date description facility 2020-03-18 23:54 RELEASE JEJUNUM, OPEN APPROACH [facility] date description facility 2020-03-18 23:54 RELEASE ILEUM, OPEN APPROACH [facility] date description facility 2020-03-18 23:54 INTRODUCE ANESTHETIC IN PERIPH [facility] NRV, PLEXI, PERC Social History date description facility [id number]
[2020-09-12 13:56] LABS: ABNORMAL LYMPHS % (MANUAL) 0 %; BAND NEUTROPHILS % (MANUAL) 0 %
[2020-09-12 14:00] LABS: BASOPHILS % (MANUAL) 1 %; LYMPHOCYTES # (MANUAL) 0.8 10^3/uL (1.5-3.5); LYMPHOCYTES % (MANUAL) 25 %; MONOCYTES # (MANUAL) 0.7 10^3/uL (0.0-1.0)
[2020-09-12 14:01] LABS: DIFFERENTIAL COMMENT MANUAL DIFFERENTIAL; PLATELET ESTIMATE, MANUAL DECREASED (<130,000) (NORMAL); PLATELET MORPHOLOGY NORMAL APPEARANCE (NORMAL); RBC MORPHOLOGY (MULTIPLE) NORMAL APPEARANCE (NORMAL)
[2020-09-12 15:59] LABS: C. PNEUMONIAE- RESP PCR PANEL NOT DETECTED
[2020-09-12 17:03] VITALS: BP 108/68
== END 2020-09-12 17:13 | disposition home or self-care (01) ==
LOC: ED 12:06
DX: G20 Parkinson's disease (principal); R41.0 Disorientation, unspecified; I45.10 Unspecified right bundle-branch block; Z20.828 Contact with and (suspected) exposure to other viral communicable diseases; I95.9 Hypotension, unspecified
CPT/HCPCS: 0202U; 36415; 70450; 80053; 80320; 83605; 83690; 83880; 84484; 85025; 87040; 93005; 96360; 99281

== ENCOUNTER 2020-10-17 14:44 | Outpatient (CLI) | payer MEDICARE, MEDICAID | END 2020-10-17 14:45 | disposition critical access hospital (66) | LOC: EMS 14:44 | DX: R41.0 Disorientation, unspecified (principal); R25.1 Tremor, unspecified; R52 Pain, unspecified | CPT/HCPCS: A0425; A0429 ==

== ENCOUNTER 2020-10-17 14:48 | Emergency (ER) | payer MEDICARE, MEDICAID ==
[2020-10-17] MEDS ORDERED: SODIUM CHLORIDE 0.9% 1,000 ML IV STA (14:55)
[2020-10-17 15:14] LABS: BASOPHILS % (AUTO) 0.4 %; EOSINOPHILS % (AUTO) 0.4 %; HGB - HEMOGLOBIN 8.9 g/dL (14.0-18.0); LYMPHOCYTES % (AUTO) 18.4 %; MEAN CORPUSCULAR HEMOGLOBIN 29.7 pg (27.0-31.0); MEAN CORPUSCULAR HGB CONC 31.4 g/dL (32.0-36.0); MEAN CORPUSCULAR VOLUME 94.3 fL (80.0-94.0); MEAN PLATELET VOLUME 10.2 fL (7.4-11.4); NEUTROPHILS % (AUTO) 55.6 %; PLT - PLATELET COUNT 78 10^3/uL (130-450); RED CELL DISTRIBUTION WIDTH 17.3 % (12.0-15.0); WHITE BLOOD COUNT 2.5 x10^3/uL (4.8-10.8)
[2020-10-17 15:18] LABS: ABNORMAL LYMPHS % (MANUAL) 0 %; BAND NEUTROPHILS % (MANUAL) 0 %
[2020-10-17 15:28] LABS: ALBUMIN 4.2 g/dL (3.2-5.5); ALBUMIN/GLOBULIN RATIO 1.4 (1.0-2.2); ALKALINE PHOSPHATASE 57 IU/L (42-121); ALT ALANINE AMINOTRANSFERASE < 10 IU/L (10-60); AST ASPARTATE AMINOTRANSFERASE 17 IU/L (10-42); BILIRUBIN,TOTAL 1.2 mg/dL (0.2-1.0); BUN - BLOOD UREA NITROGEN 22 mg/dL (6-20); CALCIUM 9.1 mg/dL (8.5-10.3); CARBON DIOXIDE - CO2 22 mmol/L (21-32); CHLORIDE 101 mmol/L (101-111); CREATININE 1.5 mg/dL (0.6-1.2); GLUCOSE 97 mg/dL (70-100); LIPASE 27 U/L (22-51); TOTAL PROTEIN 7.1 g/dL (6.7-8.2)
--- NOTE | 2020-10-17 16:15 | ED Physician Documentation ---
History of Present Illness - Stated complaint Stated Complaint: AMS - Chief complaint Chief Complaint: Neuro - History obtained from History obtained from: Patient, Family, EMS - Additonal information Additional information: Patient is brought to the emergency department by EMS after becoming agitated at home. The patient has a history of Parkinson's associated dementia, and forgot to give the patient his Seroquel this morning. The patient began to become extremely agitated, pulling on his condom cath, laying on the floor and thrashing about, and yelling. The patient did Agreed to take his Seroquel about 30 minutes prior to arriving in the emergency department. Medics state that when they got there, the patient was quite agitated, but calm down significantly in route. Patient is now fully cooperative. The patient states he does remember feeling agitated in the feels bad that he scared his . He denies any current complaints. No chest pain or abdominal pain. No fevers or chills. No recent signs of infection. No dysuria. No other complaints at this time. Review of Systems Ten Systems: 10 systems reviewed and negative Constitutional: reports: Reviewed and negative Eyes: reports: Reviewed and negative Ears: reports: Reviewed and negative Nose: reports: Reviewed and negative Throat: reports: Reviewed and negative Cardiac: reports: Reviewed and negative Respiratory: reports: Reviewed and negative GI: reports: Reviewed and negative : reports: Reviewed and negative Skin: reports: Reviewed and negative Musculoskeletal: reports: Reviewed and negative Neurologic: reports: Reviewed and negative Psychiatric: reports: Anxiety Endocrine: reports: Reviewed and negative Immunocompromised: reports: Reviewed and negative PD PAST MEDICAL HISTORY - Past Medical History Past Medical History: No Cardiovascular: Hypertension Respiratory: None Neuro: Dementia, Parkinson's, Tremors Endocrine/Autoimmune: None GI: None, Other : Frequency HEENT: None Psych: Depression, Anxiety, Panic attacks Musculoskeletal: Chronic back pain Derm: None - Past Surgical History Past Surgical History: No General: Bowel surgery - Present Medications Home Medications: Ambulatory Orders Medication Instructions Recorded Confirmed Carbidopa/Levodopa [Carbidopa-Levo 1 tab PO 5XD 08/10/17 10/17/20 ER 50-200 Tab] Meloxicam 7.5 mg PO DAILY 08/10/17 10/17/20 Entacapone [Comtan] 200 mg PO 5XD 03/19/20 10/17/20 Melatonin 9 mg PO HS 03/19/20 10/17/20 QUEtiapine [SEROquel] 50 mg PO QPM 03/19/20 10/17/20 Sertraline HCl [Zoloft] 100 mg PO DAILY 03/19/20 10/17/20 Acetaminophen [Tylenol] 650 mg PO Q6H PRN #30 tablet 03/27/20 10/17/20 Ferrous Sulfate 325 mg PO DAILY #15 tablet 03/27/20 10/17/20 - Allergies Allergies/Adverse Reactions: Allergies Allergy/AdvReac Type Severity Reaction Status Date / Time prednisone Allergy Edema Verified 10/17/20 14:59 - Social History Does the pt smoke?: No Smoking Status: Former smoker Does the pt drink ETOH?: No Does the pt have substance abuse?: No - Immunizations Immunizations are current?: Yes - POLST Patient has POLST: No PD ED PE NORMAL - Vitals Vital signs reviewed: Yes - General General: No acute distress, Well developed/nourished, Other (Patient is alert and answers questions) - HEENT HEENT: Atraumatic, PERRL, EOMI, Moist mucous membranes - Neck Neck: Supple, no meningeal sign - Cardiac Cardiac: RRR, No murmur - Respiratory Respiratory: No respiratory distress, Clear bilaterally - Abdomen Abdomen: Soft, Non tender, Non distended - Derm Derm: Normal color, Warm and dry, No rash - Extremities Extremities: No deformity, No edema, No calf tenderness / cord - Neuro Neuro: Other (Patient is alert and appropriate.) - Psych Psych: Normal mood, Normal affect Results - Vitals Vitals: Oxygen O2 Source Room air - Labs Labs: Laboratory Tests 10/17/20 10/17/20 10/17/20 15:07 15:07 16:07 WBC 2.5 L RBC 3.00 L Hgb 8.9 L Hct 28.3 L MCV 94.3 H MCH 29.7 MCHC 31.4 L RDW 17.3 H Plt Count 78 L MPV 10.2 Neut # (Auto) Not Reportable Lymph # (Auto) Not Reportable [place] # (Auto) Not Reportable Eos # (Auto) Not Reportable Baso # (Auto) Not Reportable Absolute Nucleated RBC Not Reportable Total Counted 100 Band Neuts % (Manual) 0 Abnorm Lymph % (Manual) 0 Nucleated RBC % Not Reportable Neutrophils # (Manual) 1.3 L Lymphocytes # (Manual) 0.7 L Monocytes # (Manual) 0.5 Eosinophils # (Manual) 0.0 Basophils # (Manual) 0.0 Differential Comment MANUAL DIFFERENTIAL WBC Morphology NORMAL APPEARANCE Platelet Estimate DECREASED (<130,000) Platelet Morphology NORMAL TYRONE RBC Morph Micro Appear 1+ HYPOCHROMASIA Sodium 135 Potassium 4.0 Chloride 101 Carbon Dioxide 22 Anion Gap 12.0 BUN 22 H Creatinine 1.5 H Estimated GFR (MDRD) 45 L Glucose 97 Calcium 9.1 Total Bilirubin 1.2 H AST 17 ALT < 10 L Alkaline Phosphatase 57 Total Protein 7.1 Albumin 4.2 Globulin 2.9 Albumin/Globulin Ratio 1.4 Lipase 27 Urine Color DARK YELLOW Urine Clarity CLEAR Urine pH 6.5 Ur Specific [place] 1.015 Urine Protein NEGATIVE Urine Glucose (UA) NEGATIVE Urine Ketones TRACE Urine Occult Blood TRACE-INTA Urine Nitrite NEGATIVE Urine Bilirubin NEGATIVE Urine Urobilinogen 0.2 (NORMAL) Ur Leukocyte Esterase NEGATIVE Ur Microscopic Review NOT INDICATED Urine Culture Comments NOT INDICATED PD MEDICAL DECISION MAKING - ED course Complexity details: reviewed old records, reviewed results, re-evaluated patient, considered differential, d/w patient, other ED course: The patient was very calm upon arrival in the emergency department and I felt that likely, his Seroquel had taken effect. Patient was worked up with labs and urinalysis and these were unremarkable. I felt that his sx most likely had been the result of not receiving his normal medications at the normal time. Pt remained stable throughout his stay, and was stable for d/c. Departure - Departure Disposition: 01 Home, Self Care Clinical Impression: Agitation Condition: Stable Instructions: ED Altered Loc Comments: Although you apparently had some agitation earlier, the Seroquel seems to have made this much better. Your labs and urinalysis look good. There is no emergent condition today. Please take all of your medications on time, as directed. Please follow-up with your primary care physician as needed. Discharge Date/Time: 10/17/20 17:24
[2020-10-17 16:17] LABS: BILIRUBIN,URINE NEGATIVE (NEGATIVE); GLUCOSE, URINE (UA) NEGATIVE (NEGATIVE); KETONES,URINE (UA) TRACE mg/dL (NEGATIVE); LEUKOCYTE ESTERASE, URINE NEGATIVE (NEGATIVE); NITRITE,URINE NEGATIVE (NEGATIVE); OCCULT BLOOD,URINE TRACE-INTA (NEGATIVE); PH,URINE 6.5 PH (5.0-7.5); PROTEIN,URINE NEGATIVE (NEGATIVE); UROBILINOGEN,URINE 0.2 (NORMAL) E.U./dL (NORMAL)
[2020-10-17 16:19] LABS: CLARITY,URINE CLEAR (CLEAR)
[2020-10-17 16:31] LABS: LYMPHOCYTES # (MANUAL) 0.7 10^3/uL (1.5-3.5); LYMPHOCYTES % (MANUAL) 28 %; MONOCYTES # (MANUAL) 0.5 10^3/uL (0.0-1.0)
[2020-10-17 16:32] LABS: DIFFERENTIAL COMMENT MANUAL DIFFERENTIAL; PLATELET ESTIMATE, MANUAL DECREASED (<130,000) (NORMAL); PLATELET MORPHOLOGY NORMAL APP (NORMAL)
[2020-10-17 17:14] VITALS: BP 135/98
== END 2020-10-17 17:24 | disposition home or self-care (01) ==
LOC: EDUNIT# → ED 14:48
DX: R45.1 Restlessness and agitation (principal); G31.83 Neurocognitive disorder with Lewy bodies; F02.80 Dementia in other diseases classified elsewhere, unspecified severity, without behavioral disturbance, psychotic disturbance, mood disturbance, and anxiety; I10 Essential (primary) hypertension; Z87.891 Personal history of nicotine dependence
CPT/HCPCS: 36415; 80053; 81001; 81003; 83690; 85025; 87086; 96360; 99283

== ENCOUNTER 2021-01-10 13:45 | Outpatient (CLI) | payer MEDICARE, MEDICAID | END 2021-01-10 13:46 | disposition EMS.NT | LOC: EMS 13:45 | DX: R41.82 Altered mental status, unspecified (principal) ==

== ENCOUNTER 2021-01-17 13:51 | Outpatient (CLI) | payer MEDICARE, MEDICAID | END 2021-01-17 13:52 | disposition EMS.NT | LOC: EMS 13:51 | DX: Z03.89 Encounter for observation for other suspected diseases and conditions ruled out (principal) ==

== ENCOUNTER 2021-02-10 17:16 | Outpatient (CLI) | payer MEDICARE, MEDICAID | END 2021-02-10 17:17 | disposition critical access hospital (66) | LOC: EMS 17:16 | DX: R10.9 Unspecified abdominal pain (principal) | CPT/HCPCS: A0425; A0427 ==

== ENCOUNTER 2021-02-10 17:45 | Inpatient (IN) | payer MEDICARE, MEDICAID ==
--- OUTSIDE RECORDS SUMMARY | 2021-02-10 17:56 | EXTERNAL MEDICAL SUMMARY RPT | Continuity of Care Document ---
:1940 Demographics Phone Unavailable Preferred Language Unknown Marital Status Unknown Hoahaoism Affiliation Unknown Race Unknown Ethnic Group Unknown Author Organization [place] Address [address] [phone] Phone Allergies Encounters Medications Problems Results
[2021-02-10] MEDS ORDERED: SODIUM CHLORIDE 0.9% 1,000 ML IV STA (18:01)
[2021-02-10] MEDS ORDERED: HYDROmorphone 1 MG/ML CARPUJECT IVP STA ×2 (18:01→18:14)
[2021-02-10] MEDS ORDERED: IOVERSOL 320 100 ML VIAL IVP ONE ×2 (18:06→18:48)
[2021-02-10 18:10] LABS: BASOPHILS % (AUTO) 0.2 %; EOSINOPHILS % (AUTO) 0.5 %; HCT - HEMATOCRIT 32.8 % (42.0-52.0); HGB - HEMOGLOBIN 10.1 g/dL (14.0-18.0); LYMPHOCYTES # (AUTO) 0.8 10^3/uL (1.5-3.5); LYMPHOCYTES % (AUTO) 14.1 %; MEAN CORPUSCULAR HEMOGLOBIN 27.5 pg (27.0-31.0); MEAN CORPUSCULAR HGB CONC 30.8 g/dL (32.0-36.0); MEAN CORPUSCULAR VOLUME 89.4 fL (80.0-94.0); MONOCYTES # (AUTO) 0.7 10^3/uL (0.0-1.0); MONOCYTES % (AUTO) 12.2 %; NEUTROPHILS % (AUTO) 72.5 %; PLT - PLATELET COUNT 143 10^3/uL (130-450); RED BLOOD COUNT 3.67 10^6/uL (4.70-6.10); RED CELL DISTRIBUTION WIDTH 22.5 % (12.0-15.0); WHITE BLOOD COUNT 5.5 x10^3/uL (4.8-10.8)
[2021-02-10 18:13] LABS: SLIDE REVIEW? Indicated
[2021-02-10] MEDS ORDERED: ONDANSETRON 4 MG/2 ML VIAL IVP STA (18:13)
--- NOTE | 2021-02-10 18:13 | ED Physician Documentation ---
History of Present Illness - Stated complaint Stated Complaint: ABD PX - Chief complaint Chief Complaint: Abd Pain - Additonal information Additional information: 80-year-old male presents the emergency department via EMS with acute severe a bdominal pain. He does have a history of dementia and most of the history is provided by his . She reported that he was at his usual baseline health woke up this morning feeling well they ran errands to [place] and ate at the [employer] however at about 130 he began having severe abdominal pain. no vomiting no fevers. She reports that he said he had a bowel movement that was adequate normal yesterday. On presentation this gentleman is elderly somewhat confused but writhing in the bed in agony. He has a peritoneal abdominal exam. pt unfortunately has a SBO in February of 2020 that was operated on by out Dr. Mathias as well. Review of Systems Unable to obtain: Dementia, Other (hx obtained from ) Constitutional: reports: Reviewed and negative Eyes: reports: Reviewed and negative Nose: reports: Reviewed and negative Throat: reports: Reviewed and negative Cardiac: reports: Reviewed and negative Respiratory: reports: Reviewed and negative GI: reports: Abdominal Pain. denies: Nausea, Vomiting, Constipation, Hematemesis : reports: Incontinent (at baseline) Skin: reports: Reviewed and negative Musculoskeletal: reports: Reviewed and negative PD PAST MEDICAL HISTORY - Past Medical History Cardiovascular: Hypertension Respiratory: None Neuro: Dementia, Parkinson's, Tremors Endocrine/Autoimmune: None GI: None, Other : Frequency HEENT: None Psych: Depression, Anxiety, Panic attacks Musculoskeletal: Chronic back pain Derm: None - Past Surgical History Past Surgical History: No General: Bowel surgery - Present Medications Home Medications: Ambulatory Orders Medication Instructions Recorded Confirmed Carbidopa/Levodopa [Carbidopa-Levo 1 tab PO 5XD 08/10/17 02/10/21 ER 50-200 Tab] Meloxicam 7.5 mg PO DAILY 08/10/17 02/10/21 Entacapone [Comtan] 200 mg PO 5XD 03/19/20 02/10/21 Melatonin 9 mg PO HS 03/19/20 02/10/21 QUEtiapine [SEROquel] 50 mg PO QPM 03/19/20 02/10/21 Sertraline HCl [Zoloft] 100 mg PO DAILY 03/19/20 02/10/21 Acetaminophen [Tylenol] 650 mg PO Q6H PRN #30 tablet 03/27/20 02/10/21 Fludrocortisone [Florinef] 0.2 mg PO DAILY 02/10/21 02/10/21 - Allergies Allergies/Adverse Reactions: Allergies Allergy/AdvReac Type Severity Reaction Status Date / Time prednisone Allergy Edema Verified 02/10/21 17:56 - Social History Does the pt smoke?: No Smoking Status: Former smoker Does the pt drink ETOH?: No Does the pt have substance abuse?: No - Immunizations Immunizations are current?: Yes - POLST Patient has POLST: No PD ED PE EXPANDED - General General: In Pain, In distress - Cardiac Cardiac: Regular Rate, Murmur Present, Radial strong equal, Pedal strong equal, Cap refill < 2 sec - Respiratory Respiratory: Clear to ausultation wiliam. No: Distress, Labored - Abdomen Abdomen: Decreased BS, Distended, Tender to palpation, Rebound, Guarding (Diffuse abdominal tenderness with guarding and rebound. Generalized abdominal tympany.) - Derm Derm: Warm and dry, Rash - Extremities Extremities: Normal, Pedal Pulses Present. No: Deformity, Tenderness, Pedal edema bilateral, Right calf TTP/cord, Left calf TTP/cord - Neuro Neuro: Confused, CNII-XII intact - GCS Eye Opening: Spontaneous Motor: Obeys Commands Verbal: Oriented Total: 15 Results - Vitals Vitals: Vital Signs - 24 hr 02/10/21 02/10/21 02/10/21 17:45 18:14 18:23 Temperature 36.8 C Heart Rate 73 79 74 Respiratory 17 26 H 12 Rate Blood Pressure 162/137 H 168/104 H 173/104 H O2 Saturation 97 100 100 Oxygen O2 Source Room air - EKG (time done) 1747 Rate: Rate (enter#) (72) Rhythm: NSR, Other (PVC) [place]: Normal Intervals: RBBB QRS: Normal Compare to prior EKG: Unchanged from prior EKG Computer interpretation: Agree with computer - Labs Labs: Laboratory Tests 02/10/21 02/10/21 02/10/21 18:05 18:05 18:05 WBC 5.5 RBC 3.67 L Hgb 10.1 L Hct 32.8 L MCV 89.4 MCH 27.5 MCHC 30.8 L RDW 22.5 H Plt Count 143 MPV 10.0 Neut # (Auto) 4.0 Lymph # (Auto) 0.8 L [place] # (Auto) 0.7 Eos # (Auto) 0.0 Baso # (Auto) 0.0 Absolute Nucleated RBC 0.00 Nucleated RBC % 0.0 Manual Slide Review Indicated WBC Morphology NORMAL APPEARANCE Platelet Estimate NORMAL (130-450,000) Platelet Morphology NORMAL APPEARANCE RBC Morph Micro Appear 2+ ANISOCYTOSIS Sodium 141 Potassium 3.4 L Chloride 103 Carbon Dioxide 26 Anion Gap 12.0 BUN 18 Creatinine 1.1 Estimated GFR (MDRD) 65 L Glucose 120 H Lactic Acid 1.3 Calcium 9.2 Total Bilirubin 0.8 AST 17 ALT < 10 L Alkaline Phosphatase 68 Total Protein 7.2 Albumin 4.2 Globulin 3.0 Albumin/Globulin Ratio 1.4 Lipase 20 L Nasal Adenovirus (PCR) Nasal B. parapertussis DNA (PCR) Nasal Coronavir 229E PCR Nasal Coronavir HKU1 PCR Nasal Coronavir NL63 PCR Nasal Coronavir OC43 PCR Nasal Enterovir/Rhinovir PCR Nasal Influenza B PCR Nasal Influenza A PCR Nasal Parainfluen 1 PCR Nasal Parainfluen 2 PCR Nasal Parainfluen 3 PCR Nasal Parainfluen 4 PCR Nasal RSV (PCR) Nasal B.pertussis DNA PCR Nasal C.pneumoniae (PCR) Raoul Human Metapneumo PCR Nasal M.pneumoniae (PCR) Nasal SARS-CoV-2 (PCR) 02/10/21 18:18 WBC RBC Hgb Hct MCV MCH MCHC RDW Plt Count MPV Neut # (Auto) Lymph # (Auto) [place] # (Auto) Eos # (Auto) Baso # (Auto) Absolute Nucleated RBC Nucleated RBC % Manual Slide Review WBC Morphology Platelet Estimate Platelet Morphology RBC Morph Micro Appear Sodium Potassium Chloride Carbon Dioxide Anion Gap BUN Creatinine Estimated GFR (MDRD) Glucose Lactic Acid Calcium Total Bilirubin AST ALT Alkaline Phosphatase Total Protein Albumin Globulin Albumin/Globulin Ratio Lipase Nasal Adenovirus (PCR) NOT DETECTED Nasal B. parapertussis DNA (PCR) NOT DETECTED Nasal Coronavir 229E PCR NOT DETECTED Nasal Coronavir HKU1 PCR NOT DETECTED Nasal Coronavir NL63 PCR NOT DETECTED Nasal Coronavir OC43 PCR NOT DETECTED Nasal Enterovir/Rhinovir PCR NOT DETECTED Nasal Influenza B PCR NOT DETECTED Nasal Influenza A PCR NOT DETECTED Nasal Parainfluen 1 PCR NOT DETECTED Nasal Parainfluen 2 PCR NOT DETECTED Nasal Parainfluen 3 PCR NOT DETECTED Nasal Parainfluen 4 PCR NOT DETECTED Nasal RSV (PCR) NOT DETECTED Nasal B.pertussis DNA PCR NOT DETECTED Nasal C.pneumoniae (PCR) NOT DETECTED Raoul Human Metapneumo PCR NOT DETECTED Nasal M.pneumoniae (PCR) NOT DETECTED Nasal SARS-CoV-2 (PCR) NOT DETECTED - Rads (name of study) ct abd Radiology: Final report received (Abnormal pattern of small bowel dilation up to 4.8 cm through the abdomen and pelvis. Small amount of free fluid in the perihepatic space. Colonic obstipation relatively prominent. No infection or neoplasm is identified.) PD MEDICAL DECISION MAKING - ED course Complexity details: reviewed old records, reviewed results, re-evaluated patient, considered differential, d/w patient, d/w process consultant (Bubba Mathias MD Surgeon) ED course: 80-year-old male who has a history most significant for dementia, hypertension tension and Parkinson disorder as well as previous history of small bowel obstruction requiring surgery presents the emergency department with acute onset generalized abdominal pain. He had recently eaten at the [employer] a few hours prior to arrival. On presentation he was writhing in agony and had quite a tympanic abdomen with peritoneal signs. Screening labs showed no significant leukocytosis, no lactate elevation. CT scan was completed and did show very prominent dilated small bowel loops measuring up to 4.8 cm. This was not identified specifically as a SBO however it should be noted that postoperatively last year he did have dilated small bowel loops. however given the peritoneal exam, concern existed fo rearly or partial SBO. This gentleman was discussed with our on-call surgeon Dr. Mathias who performed the surgery last year. He would like the patient admitted to the hospital with a nasogastric tube in place and bowel rest. Reassuringly there is no free air or signs of perforation. He would like patient admitted to the hospitalist service. pt was given 1 liter of IV here in the ED. He was also given a total of 2 mg of Dilaudid which moderately improved his abdominal pain, though he remained significantly tender I spoke with Dr. Conrad who has agreed to admit the patient to observation for further evaluation and treatment Departure - Departure Disposition: ED Place in Observation Clinical Impression: Hx SBO Abdominal pain Qualifiers: Abdominal location: generalized Qualified Code(s): R10.84 - Generalized abdominal pain Discharge Date/Time: 02/10/21 20:41
[2021-02-10 18:26] LABS: ALBUMIN 4.2 g/dL (3.2-5.5); ALBUMIN/GLOBULIN RATIO 1.4 (1.0-2.2); ALKALINE PHOSPHATASE 68 IU/L (42-121); ALT ALANINE AMINOTRANSFERASE < 10 IU/L (10-60); AST ASPARTATE AMINOTRANSFERASE 17 IU/L (10-42); BILIRUBIN,TOTAL 0.8 mg/dL (0.2-1.0); BUN - BLOOD UREA NITROGEN 18 mg/dL (6-20); CALCIUM 9.2 mg/dL (8.5-10.3); CARBON DIOXIDE - CO2 26 mmol/L (21-32); CHLORIDE 103 mmol/L (101-111); CREATININE 1.1 mg/dL (0.6-1.2); GFR - MDRD 65 (>89); GLUCOSE 120 mg/dL (70-100); LIPASE 20 U/L (22-51); POTASSIUM 3.4 mmol/L (3.5-5.0); SODIUM 141 mmol/L (135-145); TOTAL PROTEIN 7.2 g/dL (6.7-8.2)
[2021-02-10 18:38] LABS: PLATELET ESTIMATE, MANUAL NORMAL (130-450,000) (NORMAL); PLATELET MORPHOLOGY NORMAL APPEARANCE (NORMAL); RBC MORPHOLOGY (MULTIPLE) 2+ ANISOCYTOSIS (NORMAL); WBC MORPHOLOGY (MULTIPLE) NORMAL APPEARANCE (NORMAL)
--- NOTE | 2021-02-10 19:33 | CT Report ---
PROCEDURE: Abdomen/Pelvis W INDICATIONS: abdominal pain; hx of SBPO s/p resection CONTRAST: IV CONTRAST: Optiray 320 ml: 100 PO CONTRAST: *NO PO CONTRAST TECHNIQUE: After the administration of contrast, 5 mm thick sections acquired from the diaphragms to the sym physis. 5 mm thick coronal and sagittal reformats were acquired. For radiation dose reduction, the following was used: automated exposure control, adjustment of mA and/or kV according to patient size . COMPARISON: CT abdomen/pelvis 03/18/2020 reviewed. FINDINGS: Image quality: Excellent. ABDOMEN: Lung bases: Lung bases are clear. Heart size is normal. Solid organs: Liver and spleen are normal in size and enhancement. Gallbladder appears normal Bili richard system is non dilated. Pancreas enhances normally. No adrenal nodules. Kidneys demonstrate nor mal size and enhancement, without hydronephrosis. Peritoneum and bowel: Small bowel loops demonstrate elevated caliber without mural thickening or pneu matosis. The small bowel measures up to 4.8 cm in maximal dimension with 3 cm and is the normal upper limits of normal.. No free air. There is a small amount of perihepatic free fluid superiorly, wit hout free air. Nodes and vessels: No retroperitoneal or mesenteric adenopathy by size criteria. Aorta and inferior vena cava are normal in size. Miscellaneous: No ventral hernias. Generalized relatively prominent colonic obstipation. PELVIS: Genitourinary: Bladder wall thickness is normal. Miscellaneous: No inguinal hernias or adenopathy. Small bowel dilatation is seen extending into the pelvis, with colonic obstipation at the right colon greater than at the left. Bones: No suspicious bony lesions. No vertebral body compression fractures. IMPRESSION: Abnormal pattern of small bowel dilatation up to 4.8 cm, through the abdomen and pelvis. A small amount of free fluid is seen in the perihepatic space superiorly but no free air. Colonic ob stipation also is relatively prominent in this patient, right greater than left, and involving the tr ansverse colon. No infection or neoplasm is identified. Reviewed by: Sedrick Zaidi MD on 02/10/2021 7:32 PM PDT Approved by: Sedrick Zaidi MD on 02/10/2021 7:32 PM PDT Station ID: [id number]
[2021-02-10] MEDS ORDERED: LIDOCAINE 2% URO-JET 5 ML SYRINGE UR STA (19:49)
[2021-02-10] MEDS ORDERED: ONDANSETRON ODT 4 MG TABLET TL PRN (19:54)
[2021-02-10] MEDS ORDERED: SODIUM CHLORIDE FLUSH 0.9% 10 ML SYRINGE IVP PRN (19:54)
[2021-02-10] MEDS ORDERED: HYDROmorphone 0.5 MG/0.5 ML SYRINGE IVP PRN (19:54)
[2021-02-10] MEDS ORDERED: ONDANSETRON 4 MG/2 ML VIAL IVP PRN (19:54)
[2021-02-10] MEDS ORDERED: PROCHLORPERAZINE 10 MG/2 ML VIAL IVP PRN (19:54)
[2021-02-10 20:00] LABS: B. PARAPERTUSSIS- RESP PCR PAN NOT DETECTED; B. PERTUSSIS- RESP PCR PANEL NOT DETECTED; C. PNEUMONIAE- RESP PCR PANEL NOT DETECTED; CORONAVIRUS 229E-RESP PCR NOT DETECTED; CORONAVIRUS HKU1-RESP PCR NOT DETECTED; CORONAVIRUS NL63-RESP PCR NOT DETECTED; CORONAVIRUS OC43-RESP PCR NOT DETECTED; HUMAN METAPNEUMOVIRUS NOT DETECTED; INFLUENZA A- RESP PCR PANEL NOT DETECTED; INFLUENZA B - RESP PCR PANEL NOT DETECTED; M. PNEUMONIAE- RESP PCR PANEL NOT DETECTED; PARAINFLUENZA VIRUS 1 NOT DETECTED; PARAINFLUENZA VIRUS 2 NOT DETECTED; PARAINFLUENZA VIRUS 3 NOT DETECTED; PARAINFLUENZA VIRUS 4 NOT DETECTED; RHINOVIRUS/ENTEROVIRUS NOT DETECTED; RSV- RESP PCR PANEL NOT DETECTED; SARS-CoV-2 -RESP PCR PANEL NOT DETECTED
--- NOTE | 2021-02-10 20:08 | HISTORY & PHYSICAL EXAMINATION ---
Chief Complaint - Chief Complaint Chief Complaint: sudden onset abd pain History of Present Illness - Admitted From Admitted From:: Home - History Obtained From Records Reviewed: [facility] History obtained from: MARYAM Esqueda Exam Limitations: none - History of Present Illness HPI Comment/Other: Mr. Murillo is a 80-year-old white male who has a past medical history of Parkinson's disease is on Sinemet and entacapone, and now presents with recurrent small bowel obstruction. He last presented in February 2020 with abdomin al pain and was found to have a closed-loop small bowel obstruction on CT. He was taken to the operating room on the day of admission for an exploratory laparotomy, and underwent a lysis of adhesions, long segment small bowel resection with en bloc Meckel's diverticulectomy, [id number] functional end-to-end anastomosis, closure of mesenteric defect, and a postop wound VAC. He was discharged after 8 days, progressed postoperatively. During his stay it was noted that he did not tolerate opiates very well and caused him to have episodes of hypotension. He had some postoperative delirium and then eventually returned to baseline. His admission creatinine was 1.6 and was 1.0 by the time of discharge. He now presents again with sudden onset of severe abdominal pain that started a few hours before coming to the ER. He has been eating normally without problems, no change in BM. No fever, no chills. No emesis. He was evaluated by nurse practitioner Vikki Rivera. He does not have a fever, nor does he have an elevated white cell count. Exam is remarkable for an elderly confused man who is writhing in pain on the gurney. CT scan confirms possible early small bowel obstruction with dilated loops of small bowel of up to 4.8 cm. It extends into the pelvis with colonic obstipation at the right colon greater than the left. General surgery was called. General surgery is asking that the hospitalist service admit the patient and they will consult. Patient is now placed in [facility]. History - Past Medical History Cardiovascular: reports: Other (Hypotension) Respiratory: reports: COPD (not formally diagnosed as of yet) Neuro: reports: Dementia, Parkinson's, Tremors Endocrine/Autoimmune: reports: None GI: reports: Chronic constipation, Other (mild dysphagia) : reports: Incontinence, Frequency HEENT: reports: None Psych: reports: Depression, Anxiety, Panic attacks Musculoskeletal: reports: Chronic back pain Derm: reports: None MRSA Hx?: No - Past Surgical History General: reports: Bowel surgery - Family & Social History Family History Comment/Other: Obtained from his . Mom in her 80s of issues with possible congestive heart failure. Dad at age 57 of myocardial infarction. 1 brother and 1 sister. He is not in contact with them. He does not know, nor does she, any of their health history. 3 children. As far as the knows there is no diabetes, hypertension, stroke, heart attack, thyroid disease. Living arrangement: At home Living Situation: With spouse/s.o. Social History Notes: He went into the [employer] at the age of 19 and was smoking by then. Smoked between 1 to 2 packs/day. Quit 13 years ago. So overall he smoked about 48 years. He has no history of substance abuse or alcohol abuse. He is to his second and they have been about 21 years. - Substance History Use: Uses substance without health or social issues: NONE Abuse: Recurrent use of substance despite neg consequences: NONE Dependence: Experiences withdrawal or developed tolerances: NONE - POLST Patient has POLST: No POLST Status: DNR (DURABLE POWER OF BULK STATION AGENT on file. She states he is a DO NOT RESUSCITATE) Meds/Allgy - Home Medications Home Medications: Ambulatory Orders Medication Instructions Recorded Confirmed Carbidopa/Levodopa [Carbidopa-Levo 1 tab PO 5XD 08/10/17 02/10/21 ER 50-200 Tab] Meloxicam 7.5 mg PO DAILY 08/10/17 02/10/21 Entacapone [Comtan] 200 mg PO 5XD 03/19/20 02/10/21 Melatonin 9 mg PO HS 03/19/20 02/10/21 QUEtiapine [SEROquel] 50 mg PO QPM 03/19/20 02/10/21 Sertraline HCl [Zoloft] 100 mg PO DAILY 03/19/20 02/10/21 Acetaminophen [Tylenol] 650 mg PO Q6H PRN #30 tablet 03/27/20 02/10/21 Fludrocortisone [Florinef] 0.2 mg PO DAILY 02/10/21 02/10/21 - Allergies Allergies/Adverse Reactions: Allergies Allergy/AdvReac Type Severity Reaction Status Date / Time prednisone Allergy Edema Verified 02/10/21 17:56 Review of Systems - Constitutional Constitutional: reports: Weight loss. denies: Fatigue, Fever, Chills, Malaise, Poor appetite, Diaphoresis, Night sweats - Eyes Eyes: denies: Pain, Irritation, Amaurosis - Ears, Nose & Throat Ears, Nose & Throat: reports: Hearing loss. denies: Vertigo, Nasal pain, Sore throat, Hoarseness - Cardiovascular Cariovascular: reports: Syncope (Is chronically low blood pressure. If he stands for too long he is prone to fainting. He is on Florinef for this.). denies: Irregular heart rate, Palpitations, Chest pain, Edema, Lightheadedness - Respiratory Respiratory: reports: Cough ("His lungs are shot from all that smoking". But no formal diagnosis of emphysema. He does incentive spirometry erratically at home.), Sputum production. denies: Wheezing, Snoring, Hemoptysis, Orthopnea, SOB at rest, SOB with exertion - Gastrointestinal Gastrointestinal: reports: Abdominal pain, Abdominal distention, Constipation, Nausea, Vomiting. denies: Rectal bleeding, Black stools, Bloody stools, Coffee grounds emesis, Reflux/heartburn, Bloating - Genitourinary Genitourinary: reports: Frequency, Urgency, Incontinence, Nocturia. denies: Dysuria, Hematuria, Flank pain - Musculoskeletal Musculoskeletal: reports: Back pain, Muscle weakness (Generalized). denies: Muscle pain, Muscle aches, Stiffness, Gout, Joint pain - Integumentary Integumentary: denies: Rash, Pruritis, Lesions, Dryness - Neurological Neurological: reports: General weakness, Dizziness, Memory problems, Incoordination, Other (Tremors, bradykinesia). denies: Focal weakness, Headache - Psychiatric Psychiatric: reports: Depression, Anxiety, Hallucinations. denies: Suicidal, Delusions - Endocrine Endocrine: denies: Polyuria, Polydypsia, Polyphagia - Hematologic/Lymphatic Hematologic/Lymphatic: denies: Anemia, Bruising, Petechiae, Blood clots Prior Level of Functionality: He uses a walker at home. Just recently started physical therapy. His bradykinesia resulted in inability to dress himself, take a bath by himself, but he is unable to undress himself. He needs help getting on and off the commode. He can eat with weighted utensils. He is left alone during the day for her to go to work. Exam - Vital Signs Reviewed Vital Signs: Yes Vital Signs: Vital Signs x48h Temp Pulse Resp BP Pulse Ox 02/10/21 18:23 74 12 173/104 H 100 02/10/21 18:14 79 26 H 168/104 H 100 02/10/21 17:45 36.8 C 73 17 162/137 H 97 - Physical Exam General Appearance: positive: Mild distress, Other (80-year-old gentleman, looks listless, lethargic, NG tube in nose, severe bradykinesia with low, slow, slightly slurred speech and psychomotor retardation) Eyes Bilateral: positive: PERRL, EOMI ENT: positive: Dry mucous membranes Neck: positive: No JVD, Lymphadenopathy (R), Lymphadenopathy (L). negative: Stiff neck Respiratory: positive: No respiratory distress, Other (Slow, very shallow respiration, overall diminished breath sounds with a lack of effort). negative: Wheezes, Rales, Rhonchi Cardiovascular: positive: Regular rate & rhythm. negative: Gallop/S4, Friction rub Peripheral Pulses: positive: 1+ Abdomen: positive: Other (Distended, tympanic, mild grimacing with generalized pain that is nonfocal. Hypoactive bowel sounds. No rebound or guarding.He was described as writhing in pain in the emergency room and he is calm, slightly sedated with my exam) Skin: positive: Warm, Diaphoresis, Pallor Extremities: positive: Full ROM, Pedal edema Neurologic/Psychiatric: positive: CN's nml (2-12), Disoriented to time, Slurred/abnml speech. negative: Motor nml (Severe bradykinesia, resting pill- rolling tremors of the hands) Conclusion/Plan - Problem List (1) Abdominal pain Conclusion/Plan: Generalized. Associated with colonic obstipation on CT of the abdomen. He has dilated loops of small bowel that are very similar to the dilated loops that were seen postoperatively with his last surgery. He does not have a fever, nor does he have a white cell count. He is felt to have a possible early small bowel obstruction. Dr. Mathias, general surgery, has already been consulted. He has asked us to admit the patient, and he will will consult. He will see the patient tomorrow morning. Plan: Observation status NG tube Daily labs with CBC BMP Daily KUB N.p.o. except for ice chips He has a history of hypotension with opiates. As such Dilaudid at this time will be a 0.5 mg dose as needed and we will watch carefully. Qualifiers: Abdominal location: generalized Qualified Code(s): R10.84 - Generalized abdominal pain (2) Parkinson disease Conclusion/Plan: Parkinson's disease. unfortunately he will be n.p.o. We will hold off on giving him Sinemet and entacapone temporarily. She says that he does deteriorate even with missing 1 dose. So this will be very difficult for him to regain some of the mobility he may have lost over the last day or 2. It sounds like he was so much happier to be back at [facility]. Hopefully he will be without his medications for less than a day and that this bowel obstruction will resolve. Advance care planning conversation dictated under separate note. Social work consultation to help her with options for down the road such as reapplying for tamar with lesser share of cost or to investigate if the [facility] may have any more benefits for him (3) Hypokalemia Conclusion/Plan: Patient is n.p.o. We will supplement with K riders and recheck labs in the morning. (4) Anemia Conclusion/Plan: His anemia appears chronic. In 2016 he was mildly anemic at 11 to 12 g. With his February 2020 admission he dropped to 8.2 g. Between then and now he went back up to 10.2, then back down to 10.9 and today he is 10.1. Plan: No history of GI bleeding, dark stools. Appetite has been normal so nutritional intake is supposedly normal. Anemia panel in the morning. Qualifiers: Anemia type: unspecified type Qualified Code(s): D64.9 - Anemia, unspecified (5) History of postoperative delirium Conclusion/Plan: In this 80-year-old gentleman, anticipate some mild to moderate cognitive deficits due to age and Parkinson's disease. He is on Seroquel at night. Plan: I mentioned Haldol as needed if recurrent delirium results and pulling of lines, trying to get out of bed, etc. After discussing with his , she says that Ativan was used with his brief psychotic episode 3 years ago. She said it was a miracle, and he immediately calmed down and was able to be directed. As such I will use as needed Ativan if needed. - Lab Results Lab results reviewed: Yes Andi Bones: 02/10/21 18:05 02/10/21 18:05 - Diagnostic Imaging Results Diagnostic Imaging Results: positive: Final report reviewed Diagnostic Imaging Results Comments: Small bowel loops demonstrate elevated caliber without mural thickening or pneumatosis. The small bowel measures up to 4.8 cm in maximal dimension with 3 cm as the upper limits of normal. No free air. Small amount of perihepatic free fluid superiorly, without free air. No retroperitoneal or mesenteric adenopathy. No ventral hernias. Bladder wall thickness is normal. No inguinal hernias or adenopathy. Small bowel dilation is seen extending into the pelvis, with colonic obstipation at the right colon greater than the left. Core Measures - Anticipated LOS I expect patient to be DC'd or transferred within 96 hours.: Yes - DVT/VTE - Prophylaxis VTE/DVT Device ordered at admit?: Yes
--- OUTSIDE RECORDS SUMMARY | 2021-02-10 20:12 | EXTERNAL MEDICAL SUMMARY RPT | Continuity of Care Document ---
:1940 Demographics Phone Unavailable Preferred Language Unknown Marital Status Unknown Jainism Affiliation Unknown Race Unknown Ethnic Group Unknown Author Organization [facility] Address [address] [phone] Phone Allergies Encounters Medications Problems Results
--- NOTE | 2021-02-10 20:36 | XRAY Report ---
PROCEDURE: Chest for Line Placement INDICATIONS: NG tube placement TECHNIQUE: One view of the chest was acquired. COMPARISON: FINDINGS: Surgical changes and devices: None. Lungs and pleura: No pleural effusions or pneumothorax. Lungs are edematous. Mediastinum: Mediastinal contours appear normal. Heart size is globally enlarged. Bones and chest wall: No suspicious bony lesions. Overlying soft tissues appear unremarkable. IMPRESSION: Acute exacerbation of chronic CHF pattern. Reviewed by: Sedrick Zaidi MD on 02/10/2021 8:34 PM PDT Approved by: Sedrick Zaidi MD on 02/10/2021 8:34 PM PDT Station ID: [id number]
[2021-02-10] MEDS: LACTATED RINGERS 1,000 ML IV SCH (21:09)
[2021-02-10] MEDS: POTASSIUM CHLOR 10 MEQ/100 ML 10 MEQ/100 ML BAG IV SCH ×3 (21:09→23:28)
--- NOTE | 2021-02-10 21:21 | ADVANCE CARE PLANNING NOTE ---
Advance Care Planning - Planning Encounter Date: 02/10/21 Time: 21:18 Purpose: establish code status and goals of care Parties in Attendance: , who is DELROYKomal qamartent and hospitalist Decisional Capacity of the Patient: he has cognitive deficits that have worsened over the year and he gets "muddled", confused and can get angry w westleyigerance - Diagnosis for Encounter (1) Parkinson disease Summary: Diagnosed a little over 5 years ago. It has been a steady downhill deterioration. Medications 3 years ago resulted in an acute psychotic episode. Ativan helped calm him down. Medication was changed. He then had another change a year ago when he had his bowel obstruction because his neurologist at the [facility] thinks that might have contributed to some of the obstruction. - Encounter Subjective/Patient's Story: He served in the [employer]. He never saw active combat, and was enrolled at the end of the [place] War. He has 10% service connection with the [facility]. 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 thinks that he got current concerns disease from the agent orange. She is now his power of senior application programmer and makes all of his decisions since his Parkinson's disease is deteriorated to the point that he has a moderate cognitive deficit, with not clear thinking. [facility], and is followed by internal medicine and neurology. They moved to the [place] about 9 years ago. They just like living here, and they have friends here. That was when he retired. 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 She is his second . She says that the first marriage ended badly, and he is really not in close contact with his kids. However one of his sons lives on the [facility] and is on the way here to "help her out a little bit". She does not think he realizes what he is signing up for. As for the other 2 children he really does not speak to them. She has children of her own and sometimes they come over to help her with things like fixing a roof, fixing a fence, but they do not take active part in the physical aspect of taking care of him. His Parkinson's disease has steadily gotten worse over the last 5 years, but in the last year his functionality has really diminished tremendously. After his surgery, it was his lowest point. But they were able to get home health physical therapy and they went out to the house. Unfortunately that prescription ended in May. His visits with the [facility] have been via telemedicine for the last year. She was only able to recently get a new prescription for outpatient physical therapy and he has been going to [facility] for about 2 weeks. "Things were looking up". He was moving better, had better strength. He eats well she says with weighted utensils. In spite of that, he has lost weight over the last 5 years. So far no dysphagia but definitely the dementia. She helps him with getting dressed. She has to help him with toileting. She has to help him with bathing because is not safe. They recently moved to a new home in [place] and with the help of Prasad haywood get a ramp built outside their house. He has grab bars. He uses a walker. He does have urinary incontinence. Sheets need to be changed about 3-4 times a week. So far no stool incontinence. His main problem has been constipation. He takes a crystalloid laxative on a daily basis. The VA is in the process of trying to get him a hospital bed, and there "on the list". She took a year off from work to take care of him this last year and get tamar, Medicaid, etc. But tamar care is about $500 a month and she cannot afford that. She has gone back to work and is trying to figure out how she can apply to all this together. Up until this point they have been living in the moment. She has not looked down the road to planning for the eventuality of his needing 24/7 care. She has been is been playing it by ear. They did have a caregiver for 6 hours a day, but again, she could not afford the hickey of $500 a month. And unfortunately he had an episode of belligerence and said something to the caregiver and she quit. When he gets confused, he gets frustrated, and lashes out verbally. She does have a VA child protective services social worker that she works with out of the [facility] office in [place]. They are wonderful to her and helped her connect with kandace and yobany for the ramp. When they go to [place] to the [facility], the use the van that picks them up in [place]. She states that he is a DO NOT RESUSCITATE. He and she had that conversation in the past. Last year she modified it a bit for him to have surgery. Up until then it was mainly comfort/palliative measures as a goal. But she did not want him to from a bowel obstruction. But she does know that he does not want to be resuscitated, without CPR or intubation. When I talked about planning for down the road, and what her plans are when she has to take care of him, she really does not have a plan. She has not thought that out. She knows that she cannot rely on her children, cannot rely on his children, cannot afford the $500 a month TAMAR, and he would refuse to go to an assisted living facility or prison facility. They tried respite care over a year ago, and she felt that he almost just from the week of respite care he was getting. His depression and deterioration was so severe. So going to a [facility] is out of the question. When the time comes, most likely he will need to be at home and she will transition him to hospice care. Objective/Medical Story: Mr. Murillo is a 80-year-old white male who has a past medical history of Parkinson's disease is on Sinemet and entacapone, and now presents with recurrent small bowel obstruction. He last presented in February 2020 with abdominal pain and was found to have a closed-loop small bowel obstruction on CT. He was taken to the operating room on the day of admission for an exploratory laparotomy, and underwent a lysis of adhesions, long segment small bowel resection with en bloc Meckel's diverticulectomy, [id number] functional end-to-end anastomosis, closure of mesenteric defect, and a postop wound VAC. He was discharged after 8 days, progressed postoperatively. During his stay it was noted that he did not tolerate opiates very well and caused him to have episodes of hypotension. He had some postoperative delirium and then eventually returned to baseline. His admission creatinine was 1.6 and was 1.0 by the time of discharge. He now presents again with sudden onset of severe abdominal pain that started a few hours before coming to the ER. He has been eating normally without problems, no change in BM. No fever, no chills. No emesis. He was evaluated by nurse practitioner Vikki Rivera. He does not have a fever, nor does he have an elevated white cell count. Exam is remarkable for an elderly confused man who is writhing in pain on the gurney. CT scan confirms possible early small bowel obstruction with dilated loops of small bowel of up to 4.8 cm. It extends into the pelvis with colonic obstipation at the right colon greater than the left. General surgery was called. General surgery is asking that the hospitalist service admit the patient and they will consult. Patient is now placed in observation. History - Past Medical History Cardiovascular: reports: Other (Hypotension) Respiratory: reports: COPD (not formally diagnosed as of yet) Neuro: reports: Dementia, Parkinson's, Tremors Endocrine/Autoimmune: reports: None GI: reports: Chronic constipation, Other (mild dysphagia) : reports: Incontinence, Frequency HEENT: reports: None Psych: reports: Depression, Anxiety, Panic attacks Musculoskeletal: reports: Chronic back pain Derm: reports: None MRSA Hx?: No - Past Surgical History General: reports: Bowel surgery Goals of Care: 1. To get through this acute episode of care for possible small bowel obstruction/constipation 2. To return to physical therapy to improve his strength, mobility, bowel movements 3. To get that bed in their house to help him with sleeping 4. To more carefully watch his diet, fluid intake, and stool intake to avoid further episodes of obstruction 5. To keep him at home in the eventuality of his deterioration from Parkinson's disease, with a desire never to go to a prison facility 6. DO NOT RESUSCITATE status Plan: At this time the patient is placed under observation. Symptoms of emesis, pain will be managed with medication. General surgery will see the patient in the morning. I am hoping that social work will be able to consult with the and give her other options for getting help in the home. At this point in time things seem to have stabilized until this current episode of care, and she is hoping to return to that baseline status. But will start planning for the future and hopes that Social Work will help her with some options. I have also asked her, and the capacity that the family is capable of, to sit down and talk to her children and his children about what they can practically offer in helping her for down the road. It may be as she says, which is a may not help at all. But at least she should sit down and have a conversation with her if he is able, his children, her children. She is not identifying any friends or neighbors that would be able to come help. Code Status: Do Not Attempt Resuscitation
[2021-02-11] MEDS: POTASSIUM CHLOR 10 MEQ/100 ML 10 MEQ/100 ML BAG IV SCH (00:31)
[2021-02-11] MEDS: SODIUM CHLORIDE FLUSH 0.9% 10 ML SYRINGE IVP SCH ×4 (01:36→23:28)
[2021-02-11 04:54] LABS: ABSOLUTE RETICS # AUTO 0.098 10^6/uL (0.020-0.110); RED BLOOD COUNT 3.83 10^6/uL (4.70-6.10); RETICULOCYTE COUNT % (AUTO) 2.57 % (0.5-2.3)
[2021-02-11 05:20] LABS: CALCIUM 9.2 mg/dL (8.5-10.3); CREATININE 1.1 mg/dL (0.6-1.2); POTASSIUM 4.2 mmol/L (3.5-5.0)
[2021-02-11 05:21] LABS: IRON 86 ug/dL (45-182); TRANSFERRIN 238 mg/dL (180-329)
[2021-02-11 05:48] LABS: FERRITIN 13.2 ng/mL (23.9-336.2)
[2021-02-11] MEDS: LACTATED RINGERS 1,000 ML IV SCH ×2 (07:14→18:39)
[2021-02-11 07:32] LABS: BASOPHILS % (AUTO) 0.1 %; HCT - HEMATOCRIT 34.6 % (42.0-52.0); HGB - HEMOGLOBIN 10.6 g/dL (14.0-18.0); LYMPHOCYTES % (AUTO) 1.7 %; MEAN CORPUSCULAR HEMOGLOBIN 27.6 pg (27.0-31.0); MEAN CORPUSCULAR HGB CONC 30.6 g/dL (32.0-36.0); MEAN CORPUSCULAR VOLUME 90.1 fL (80.0-94.0); MEAN PLATELET VOLUME 10.6 fL (7.4-11.4); MONOCYTES % (AUTO) 14.1 %; NEUTROPHILS % (AUTO) 82.1 %; PLT - PLATELET COUNT 167 10^3/uL (130-450); RED BLOOD COUNT 3.84 10^6/uL (4.70-6.10); WHITE BLOOD COUNT 22.5 x10^3/uL (4.8-10.8)
[2021-02-11 07:37] LABS: ABNORMAL LYMPHS % (MANUAL) 0 %
[2021-02-11 08:26] LABS: BAND NEUTROPHILS % (MANUAL) 5 %; LYMPHOCYTES # (MANUAL) 1.1 10^3/uL (1.5-3.5); LYMPHOCYTES % (MANUAL) 5 %; MONOCYTES # (MANUAL) 2.5 10^3/uL (0.0-1.0); NEUTROPHILS # (MANUAL) 18.9 10^3/uL (1.5-6.6)
[2021-02-11 08:27] LABS: DIFFERENTIAL COMMENT MANUAL DIFFERENTIAL; PLATELET ESTIMATE, MANUAL NORMAL (130-450,000) (NORMAL); PLATELET MORPHOLOGY NORMAL APPEARANCE (NORMAL); RBC MORPHOLOGY (MULTIPLE) 3+ ANISOCYTOSIS (NORMAL); WBC MORPHOLOGY (MULTIPLE) NORMAL APPEARANCE (NORMAL)
[2021-02-11] MEDS ORDERED: ENOXAPARIN 40 MG/0.4 ML SYRINGE SUBQ SCH (09:00)
[2021-02-11] MEDS ORDERED: DIATRIZOATE MEGLU/DIATRIZO SOD 30 ML BOTTLE PO ONE (13:00)
--- NOTE | 2021-02-11 13:06 | PROVIDER PROGRESS NOTE ---
Subjective - Prog Note Date Prog Note Date: 02/11/21 - Subjective Subjective: He is little more lethargic this morning. He still complains of abdominal pain. He has not had a bowel movement per nursing. Current Medications - Current Medications Current Medications: Active Medications Enoxaparin Sodium (Enoxaparin 40 Mg/0.4 Ml Syringe) 40 mg SUBQ DAILY [facility] Last Admin: 02/11/21 10:12 Dose: 40 mg Documented by: Hydromorphone HCl (Hydromorphone 0.5 Mg/0.5 Ml Syringe) 0.5 mg IVP Q2H PRN PRN Reason: Pain 8 to 10 Lactated Ringer's (Lr) 1,000 mls @ 100 mls/hr IV .Q10H [facility] Last Infusion: 02/11/21 12:30 Dose: 0 mls/hr Documented by: Ondansetron HCl (Ondansetron Odt 4 Mg Tablet) 4 mg TL Q6HR PRN PRN Reason: Nausea / Vomiting Ondansetron HCl (Ondansetron 4 Mg/2 Ml Vial) 4 mg IVP Q6HR PRN PRN Reason: Nausea / Vomiting Prochlorperazine Edisylate (Prochlorperazine 10 Mg/2 Ml Vial) 10 mg IVP Q6HR PRN PRN Reason: Nausea / Vomiting Sodium Chloride (Sodium Chloride Flush 0.9% 10 Ml Syringe) 10 ml IVP PRN PRN PRN Reason: NEEDED PER PROVIDER ORDERS Last Admin: 02/10/21 21:12 Dose: 10 ml Documented by: Sodium Chloride (Sodium Chloride Flush 0.9% 10 Ml Syringe) 10 ml IVP 0100,0900,1700 [facility] Last Admin: 02/11/21 10:13 Dose: Not Given Documented by: Carbidopa/Levodopa [Carbidopa-Levo ER 50-200 Tab] 1 tab PO 5XD 08/10/17 Meloxicam 7.5 mg PO DAILY 08/10/17 Entacapone [Comtan] 200 mg PO 5XD 03/19/20 Melatonin 9 mg PO HS 03/19/20 QUEtiapine [SEROquel] 50 mg PO QPM 03/19/20 Sertraline HCl [Zoloft] 100 mg PO DAILY 03/19/20 Fludrocortisone [Florinef] 0.2 mg PO DAILY 02/10/21 Objective - Vital Signs/Intake & Output Reviewed Vital Signs: Yes Vital Signs: Vital Signs x48h Temp Pulse Pulse Resp BP Pulse Ox 02/11/21 07:42 37.0 C 113 H 18 119/75 90 L 02/11/21 06:08 37 C 95 20 93 Intake & Output: Intake & Output 02/08/21 02/09/21 02/10/21 02/11/21 23:59 23:59 23:59 23:59 Intake Total 1200 1726.667 Output Total 400 Balance 1200 1326.667 - Objective General Appearance: positive: Mild distress, Lethargic, Other (He will mumble a few words here and there but does appear to be in mild distress and lethargic overall.) Eyes Bilateral: positive: Normal inspection ENT: positive: ENT inspection nml Respiratory: positive: No respiratory distress. negative: Wheezes, Rales Cardiovascular: positive: Regular rate & rhythm. negative: Tachycardia Abdomen: positive: No distention, Tenderness (Mild diffuse tenderness.), Abnml bowel sounds (Hypoactive bowel sounds.) Skin: positive: Warm, Dry Extremities: positive: No pedal edema Neurologic/Psychiatric: positive: Other (There is a resting tremor in his right upper extremity.). negative: Disoriented to person - Lab Results Fish Bones: 02/11/21 04:37 02/11/21 04:37 Other Labs: Lab Results x24hrs 02/11/21 02/11/21 02/11/21 Range/Units 04:37 04:37 04:37 WBC (4.8-10.8) x10^3/uL RBC 3.83 L (4.70-6.10) 10^6/uL Hgb (14.0-18.0) g/dL Hct (42.0-52.0) % MCV (80.0-94.0) fL MCH (27.0-31.0) pg MCHC (32.0-36.0) g/dL RDW (12.0-15.0) % Plt Count (130-450) 10^3/uL MPV (7.4-11.4) fL Reticulocyte % (Auto) 2.57 H (0.5-2.3) % Neut # (Auto) (1.5-6.6) 10^3/uL Lymph # (Auto) (1.5-3.5) 10^3/uL Billings # (Auto) (0.0-1.0) 10^3/uL Eos # (Auto) (0.0-0.7) 10^3/uL Baso # (Auto) (0.0-0.1) 10^3/uL Absolute Nucleated RBC x10^3/uL Total Counted Band Neuts % (Manual) (0 - 10) % Abnorm Lymph % (Manual) % Nucleated RBC % /100WBC Neutrophils # (Manual) (1.5-6.6) 10^3/uL Lymphocytes # (Manual) (1.5-3.5) 10^3/uL Monocytes # (Manual) (0.0-1.0) 10^3/uL Eosinophils # (Manual) (0-0.7) 10^3/uL Basophils # (Manual) (0-0.1) 10^3/uL Differential Comment Manual Slide Review WBC Morphology (NORMAL) Platelet Estimate (NORMAL) Platelet Morphology (NORMAL) RBC Morph Micro Appear (NORMAL) Absolute Retic 0.098 (0.020-0.110) 10^6/uL Sodium (135-145) mmol/L Potassium (3.5-5.0) mmol/L Chloride (101-111) mmol/L Carbon Dioxide (21-32) mmol/L Anion Gap (6-13) BUN (6-20) mg/dL Creatinine (0.6-1.2) mg/dL Estimated GFR (MDRD) (>89) Glucose (70-100) mg/dL Lactic Acid (0.5-2.2) mmol/L Calcium (8.5-10.3) mg/dL Iron 86 (45-182) ug/dL TIBC (250-450) ug/dL % Saturation (20-50) % Transferrin 238 (180-329) mg/dL Ferritin (23.9-336.2) ng/mL Total Bilirubin (0.2-1.0) mg/dL AST (10-42) IU/L ALT (10-60) IU/L Alkaline Phosphatase (42-121) IU/L Lactate Dehydrogenase 176 (91-225) IU/L Total Protein (6.7-8.2) g/dL Albumin (3.2-5.5) g/dL Globulin (2.1-4.2) g/dL Albumin/Globulin Ratio (1.0-2.2) Lipase (22-51) U/L Vitamin B12 (180-914) pg/mL Nasal Adenovirus (PCR) Nasal B. parapertussis DNA (PCR) Nasal Coronavir 229E PCR Nasal Coronavir HKU1 PCR Nasal Coronavir NL63 PCR Nasal Coronavir OC43 PCR Nasal Enterovir/Rhinovir PCR Nasal Influenza B PCR Nasal Influenza A PCR Nasal Parainfluen 1 PCR Nasal Parainfluen 2 PCR Nasal Parainfluen 3 PCR Nasal Parainfluen 4 PCR Nasal RSV (PCR) Nasal B.pertussis DNA PCR Nasal C.pneumoniae (PCR) Raoul Human Metapneumo PCR Nasal M.pneumoniae (PCR) Nasal SARS-CoV-2 (PCR) 02/11/21 02/11/21 02/11/21 Range/Units 04:37 04:37 04:37 WBC 22.5 H (4.8-10.8) x10^3/uL RBC 3.84 L (4.70-6.10) 10^6/uL Hgb 10.6 L (14.0-18.0) g/dL Hct 34.6 L (42.0-52.0) % MCV 90.1 (80.0-94.0) fL MCH 27.6 (27.0-31.0) pg MCHC 30.6 L (32.0-36.0) g/dL RDW 23.0 H (12.0-15.0) % Plt Count 167 (130-450) 10^3/uL MPV 10.6 (7.4-11.4) fL Reticulocyte % (Auto) (0.5-2.3) % Neut # (Auto) Not Reportable (1.5-6.6) 10^3/uL Lymph # (Auto) Not Reportable (1.5-3.5) 10^3/uL Billings # (Auto) Not Reportable (0.0-1.0) 10^3/uL Eos # (Auto) Not Reportable (0.0-0.7) 10^3/uL Baso # (Auto) Not Reportable (0.0-0.1) 10^3/uL Absolute Nucleated RBC Not Reportable x10^3/uL Total Counted 100 Band Neuts % (Manual) 5 (0 - 10) % Abnorm Lymph % (Manual) 0 % Nucleated RBC % Not Reportable /100WBC Neutrophils # (Manual) 18.9 H (1.5-6.6) 10^3/uL Lymphocytes # (Manual) 1.1 L (1.5-3.5) 10^3/uL Monocytes # (Manual) 2.5 H (0.0-1.0) 10^3/uL Eosinophils # (Manual) 0.0 (0-0.7) 10^3/uL Basophils # (Manual) 0.0 (0-0.1) 10^3/uL Differential Comment MANUAL DIFFERENTIAL Manual Slide Review WBC Morphology NORMAL APPEARANCE (NORMAL) Platelet Estimate NORMAL (130-450,000) (NORMAL) Platelet Morphology NORMAL APPEARANCE (NORMAL) RBC Morph Micro Appear 3+ ANISOCYTOSIS (NORMAL) Absolute Retic (0.020-0.110) 10^6/uL Sodium 142 (135-145) mmol/L Potassium 4.2 (3.5-5.0) mmol/L Chloride 104 (101-111) mmol/L Carbon Dioxide 28 (21-32) mmol/L Anion Gap 10.0 (6-13) BUN 19 (6-20) mg/dL Creatinine 1.1 (0.6-1.2) mg/dL Estimated GFR (MDRD) 65 L (>89) Glucose 185 H (70-100) mg/dL Lactic Acid (0.5-2.2) mmol/L Calcium 9.2 (8.5-10.3) mg/dL Iron 85 (45-182) ug/dL TIBC 326 (250-450) ug/dL % Saturation 26 (20-50) % Transferrin 233 (180-329) mg/dL Ferritin 13.2 L (23.9-336.2) ng/mL Total Bilirubin (0.2-1.0) mg/dL AST (10-42) IU/L ALT (10-60) IU/L Alkaline Phosphatase (42-121) IU/L Lactate Dehydrogenase (91-225) IU/L Total Protein (6.7-8.2) g/dL Albumin (3.2-5.5) g/dL Globulin (2.1-4.2) g/dL Albumin/Globulin Ratio (1.0-2.2) Lipase (22-51) U/L Vitamin B12 180 (180-914) pg/mL Nasal Adenovirus (PCR) Nasal B. parapertussis DNA (PCR) Nasal Coronavir 229E PCR Nasal Coronavir HKU1 PCR Nasal Coronavir NL63 PCR Nasal Coronavir OC43 PCR Nasal Enterovir/Rhinovir PCR Nasal Influenza B PCR Nasal Influenza A PCR Nasal Parainfluen 1 PCR Nasal Parainfluen 2 PCR Nasal Parainfluen 3 PCR Nasal Parainfluen 4 PCR Nasal RSV (PCR) Nasal B.pertussis DNA PCR Nasal C.pneumoniae (PCR) Raoul Human Metapneumo PCR Nasal M.pneumoniae (PCR) Nasal SARS-CoV-2 (PCR) 02/10/21 02/10/21 02/10/21 Range/Units 18:18 18:05 18:05 WBC (4.8-10.8) x10^3/uL RBC (4.70-6.10) 10^6/uL Hgb (14.0-18.0) g/dL Hct (42.0-52.0) % MCV (80.0-94.0) fL MCH (27.0-31.0) pg MCHC (32.0-36.0) g/dL RDW (12.0-15.0) % Plt Count (130-450) 10^3/uL MPV (7.4-11.4) fL Reticulocyte % (Auto) (0.5-2.3) % Neut # (Auto) (1.5-6.6) 10^3/uL Lymph # (Auto) (1.5-3.5) 10^3/uL Billings # (Auto) (0.0-1.0) 10^3/uL Eos # (Auto) (0.0-0.7) 10^3/uL Baso # (Auto) (0.0-0.1) 10^3/uL Absolute Nucleated RBC x10^3/uL Total Counted Band Neuts % (Manual) (0 - 10) % Abnorm Lymph % (Manual) % Nucleated RBC % /100WBC Neutrophils # (Manual) (1.5-6.6) 10^3/uL Lymphocytes # (Manual) (1.5-3.5) 10^3/uL Monocytes # (Manual) (0.0-1.0) 10^3/uL Eosinophils # (Manual) (0-0.7) 10^3/uL Basophils # (Manual) (0-0.1) 10^3/uL Differential Comment Manual Slide Review WBC Morphology (NORMAL) Platelet Estimate (NORMAL) Platelet Morphology (NORMAL) RBC Morph Micro Appear (NORMAL) Absolute Retic (0.020-0.110) 10^6/uL Sodium 141 (135-145) mmol/L Potassium 3.4 L (3.5-5.0) mmol/L Chloride 103 (101-111) mmol/L Carbon Dioxide 26 (21-32) mmol/L Anion Gap 12.0 (6-13) BUN 18 (6-20) mg/dL Creatinine 1.1 (0.6-1.2) mg/dL Estimated GFR (MDRD) 65 L (>89) Glucose 120 H (70-100) mg/dL Lactic Acid 1.3 (0.5-2.2) mmol/L Calcium 9.2 (8.5-10.3) mg/dL Iron (45-182) ug/dL TIBC (250-450) ug/dL % Saturation (20-50) % Transferrin (180-329) mg/dL Ferritin (23.9-336.2) ng/mL Total Bilirubin 0.8 (0.2-1.0) mg/dL AST 17 (10-42) IU/L ALT < 10 L (10-60) IU/L Alkaline Phosphatase 68 (42-121) IU/L Lactate Dehydrogenase (91-225) IU/L Total Protein 7.2 (6.7-8.2) g/dL Albumin 4.2 (3.2-5.5) g/dL Globulin 3.0 (2.1-4.2) g/dL Albumin/Globulin Ratio 1.4 (1.0-2.2) Lipase 20 L (22-51) U/L Vitamin B12 (180-914) pg/mL Nasal Adenovirus (PCR) NOT DETECTED Nasal B. parapertussis DNA (PCR) NOT DETECTED Nasal Coronavir 229E PCR NOT DETECTED Nasal Coronavir HKU1 PCR NOT DETECTED Nasal Coronavir NL63 PCR NOT DETECTED Nasal Coronavir OC43 PCR NOT DETECTED Nasal Enterovir/Rhinovir PCR NOT DETECTED Nasal Influenza B PCR NOT DETECTED Nasal Influenza A PCR NOT DETECTED Nasal Parainfluen 1 PCR NOT DETECTED Nasal Parainfluen 2 PCR NOT DETECTED Nasal Parainfluen 3 PCR NOT DETECTED Nasal Parainfluen 4 PCR NOT DETECTED Nasal RSV (PCR) NOT DETECTED Nasal B.pertussis DNA PCR NOT DETECTED Nasal C.pneumoniae (PCR) NOT DETECTED Raoul Human Metapneumo PCR NOT DETECTED Nasal M.pneumoniae (PCR) NOT DETECTED Nasal SARS-CoV-2 (PCR) NOT DETECTED 02/10/21 Range/Units 18:05 WBC 5.5 (4.8-10.8) x10^3/uL RBC 3.67 L (4.70-6.10) 10^6/uL Hgb 10.1 L (14.0-18.0) g/dL Hct 32.8 L (42.0-52.0) % MCV 89.4 (80.0-94.0) fL MCH 27.5 (27.0-31.0) pg MCHC 30.8 L (32.0-36.0) g/dL RDW 22.5 H (12.0-15.0) % Plt Count 143 (130-450) 10^3/uL MPV 10.0 (7.4-11.4) fL Reticulocyte % (Auto) (0.5-2.3) % Neut # (Auto) 4.0 (1.5-6.6) 10^3/uL Lymph # (Auto) 0.8 L (1.5-3.5) 10^3/uL Billings # (Auto) 0.7 (0.0-1.0) 10^3/uL Eos # (Auto) 0.0 (0.0-0.7) 10^3/uL Baso # (Auto) 0.0 (0.0-0.1) 10^3/uL Absolute Nucleated RBC 0.00 x10^3/uL Total Counted Band Neuts % (Manual) (0 - 10) % Abnorm Lymph % (Manual) % Nucleated RBC % 0.0 /100WBC Neutrophils # (Manual) (1.5-6.6) 10^3/uL Lymphocytes # (Manual) (1.5-3.5) 10^3/uL Monocytes # (Manual) (0.0-1.0) 10^3/uL Eosinophils # (Manual) (0-0.7) 10^3/uL Basophils # (Manual) (0-0.1) 10^3/uL Differential Comment Manual Slide Review Indicated WBC Morphology NORMAL APPEARANCE (NORMAL) Platelet Estimate NORMAL (130-450,000) (NORMAL) Platelet Morphology NORMAL APPEARANCE (NORMAL) RBC Morph Micro Appear 2+ ANISOCYTOSIS (NORMAL) Absolute Retic (0.020-0.110) 10^6/uL Sodium (135-145) mmol/L Potassium (3.5-5.0) mmol/L Chloride (101-111) mmol/L Carbon Dioxide (21-32) mmol/L Anion Gap (6-13) BUN (6-20) mg/dL Creatinine (0.6-1.2) mg/dL Estimated GFR (MDRD) (>89) Glucose (70-100) mg/dL Lactic Acid (0.5-2.2) mmol/L Calcium (8.5-10.3) mg/dL Iron (45-182) ug/dL TIBC (250-450) ug/dL % Saturation (20-50) % Transferrin (180-329) mg/dL Ferritin (23.9-336.2) ng/mL Total Bilirubin (0.2-1.0) mg/dL AST (10-42) IU/L ALT (10-60) IU/L Alkaline Phosphatase (42-121) IU/L Lactate Dehydrogenase (91-225) IU/L Total Protein (6.7-8.2) g/dL Albumin (3.2-5.5) g/dL Globulin (2.1-4.2) g/dL Albumin/Globulin Ratio (1.0-2.2) Lipase (22-51) U/L Vitamin B12 (180-914) pg/mL Nasal Adenovirus (PCR) Nasal B. parapertussis DNA (PCR) Nasal Coronavir 229E PCR Nasal Coronavir HKU1 PCR Nasal Coronavir NL63 PCR Nasal Coronavir OC43 PCR Nasal Enterovir/Rhinovir PCR Nasal Influenza B PCR Nasal Influenza A PCR Nasal Parainfluen 1 PCR Nasal Parainfluen 2 PCR Nasal Parainfluen 3 PCR Nasal Parainfluen 4 PCR Nasal RSV (PCR) Nasal B.pertussis DNA PCR Nasal C.pneumoniae (PCR) Raoul Human Metapneumo PCR Nasal M.pneumoniae (PCR) Nasal SARS-CoV-2 (PCR) ABX Reporting Has patient been on IV antibiotics over the past 48 hours?: No Assessment/Plan - Problem List (1) Small bowel obstruction Impression: Appears to be secondary to obstipation. His colon is full of stool. I reviewed the CT with general surgery and at this time they are recommending a trial of Gastrografin with a repeat CT in about 6 hours. He will remain n.p.o. this time. He unfortunately pulled his NG tube this morning and given his underlying dementia and Parkinson's disease, we will hold off on placing a new one. Continue IV fluids. Pain control with Dilaudid as needed. Zofran as needed for nausea. Appear general surgery input. (2) Anemia of chronic disease Impression: He does have anemia of chronic disease. His iron studies also suggest this. There is currently no evidence of bleeding. We will continue to monitor. (3) Parkinson disease Impression: He does have a history of Parkinson disease which is stable at this time. We will resume his home medications once he is able to take p.o. (4) Dementia Impression: He appears to be at his baseline from a dementia standpoint at this time. He is at risk for delirium and has had delirium in the past with hospitalizations. Continue delirium precautions. Will order a one-to-one sitter for him given he pulled out his NG tube.
--- NOTE | 2021-02-11 13:22 | PHARMACY PROGRESS NOTE ---
- Best Possible Medication History Admit Date and Time: 02/10/211953 Processed by: Nursing Medication History completed: Yes As the person ultimately responsible for medication therapy, providers are able to order a medication from an existing home medication list in [facility] via the "Reconcile Routine" prior to Confirmation of that medication by telecommunications support. Such practice is discouraged except when the physician, in their clinical judgment, deems that a medical need exists for a medication without regard to previous use.
--- NOTE | 2021-02-11 13:46 | XRAY Report ---
PROCEDURE: Abdomen 1 View X-Ray INDICATIONS: early sbo followup TECHNIQUE: 1 view of the abdomen were acquired. COMPARISON: CT abdomen pelvis 02/10/2021 FINDINGS: Surgical changes and devices: None. Bowel: No pneumoperitoneum. There is a persistent appearance of dilated, fluid-filled small bowel lo ops, appearing similar versus minimally decreased in size compared to prior exam. Soft tissues: No masses; visualized solid organ contours appear normal in size. No suspicious abdom inal calcifications. Contrast is noted within the bladder secondary to prior IV contrast administrati on for CT exam. Bones: No suspicious bony abnormalities. IMPRESSION: Persistent partial small bowel obstruction, stable versus minimally improved. Reviewed by: Radha Huffman MD on 02/11/2021 1:44 PM PDT Approved by: Radha Huffman MD on 02/11/2021 1:44 PM PDT Station ID: [id number]
--- NOTE | 2021-02-11 15:12 | SURGERY HX AND PHYSICAL(T) ---
Surgical History & Physical - Chief Complaint/HPI Chief Complaint: Recurrent small bowel obstruction History of Present Illness: 80-year-old male with history of prior laparotomy for bowel obstruction. He presents with recurrent bowel obstruction. Patient presented with a virgin abdomen historically and a closed-loop obstruction requiring low excitement bowel resection of 100 cm. See below for details. Postoperative diagnosis include closed-loop obstruction/internal herniation. Parkinson's disease. Dementia. Procedure Performed: 1. Exploratory laparotomy 2. Lysis of adhesions 3. Long segment small bowel resection with en bloc Meckel's diverticulectomy 4. Primary side to side functional end-to-end antiperistaltic anastomosis 5. Closure of mesenteric defect 6. Placement of drain with abdominal washout 7. Decompression on table of small bowel obstruction 8. Mery wound VAC placement - PMH/PSH/Social Hx Does the pt have a hx of MRSA?: No Neurological History: Dementia, Parkinson's, Tremors Eyes, Ears, Nose, Throat: None Cardiovascular: Other (Hypotension) Respiratory: COPD (not formally diagnosed as of yet) Skin: None Endocrine/Autoimmune: None Gastrointestinal: Chronic constipation, Other (mild dysphagia) Urinary: Incontinence, Frequency Musculoskeletal: Chronic back pain Blood Disorders: None Psychiatric: Depression, Anxiety, Panic attacks PMH Other: hypotension, SBO General: Bowel surgery Smoking Status: Former smoker Does the pt drink ETOH?: No Does the pt have substance abuse?: No - Home Meds and Allergies Home Medications: Carbidopa/Levodopa [Carbidopa-Levo ER 50-200 Tab] 1 tab PO 5XD 08/10/17 Meloxicam 7.5 mg PO DAILY 08/10/17 Entacapone [Comtan] 200 mg PO 5XD 03/19/20 Melatonin 9 mg PO HS 03/19/20 QUEtiapine [SEROquel] 50 mg PO QPM 03/19/20 Sertraline HCl [Zoloft] 100 mg PO DAILY 03/19/20 Fludrocortisone [Florinef] 0.2 mg PO DAILY 02/10/21 Allergies/Adverse Reactions: Allergies Allergy/AdvReac Type Severity Reaction Status Date / Time prednisone Allergy Edema Verified 02/10/21 17:56 - Review of Systems Constitutional: Other (Difficult to assess secondary to the patient's dementia) - Vital Signs Heart Rate: 95 Blood Pressure: 173/104 Temperature: 37.0 C Respiratory Rate: 18 O2 Saturation: 90 Weight (kg): 85.5 kg Height: 1.83 m - Physical Exam Comments/Other: General Appearance: positive: No acute distress Eyes Bilateral: positive: Normal inspection ENT: positive: ENT inspection nml Neck: positive: Nml inspection Respiratory: positive: Chest non-tender, No respiratory distress, Breath sounds nml. negative: Wheezes, Rales, Rhonchi Cardiovascular: positive: Regular rate & rhythm Abdomen: positive: No distention, Other. negative: Guarding, Rebound Extremities: positive: Non-tender, Full ROM, Nml appearance Neurologic/Psychiatric: positive: Oriented x3, CN's nml (2-12) Abdomen specified: Softly distended, no rebound, no guarding. Well-healed scar. No palpable inguinal or ventral hernias. - Patient Review Patient Review: Problems were reviewed with the patient during this visit. Medications were reviewed with the patient during this visit. Allergies were reviewed this patient during this visit. Pertinent Tests Reviewed: All pertitent test for this patient were reviewed. - Assessment & Plan Assessment and Plan: 80-year-old male with history of dementia with past surgical history of exploratory laparotomy, secondary to historic small bowel obstruction. He currently presents with high-grade small bowel obstruction with associated obstipation. No peritoneal signs at this time. Plan as follows: 1. Bowel rest, nasogastric decompression, IV fluid resuscitation. 2. Serial abdominal exams, plain film imaging, possible repeat imaging with CT and contrast challenge. 3. May need operative intervention if fails conservative management. Will follow closely. 4. Electrolytes normal at this time we will continue to monitor them with daily lab draws. February 10 CT abdomen pelvis: Abnormal pattern of small bowel dilated Tatian to 4.8 cm, through the abdomen and pelvis. A small amount of free fluid is seen in the perihepatic space. No free air. Colonic obstipation is relatively prominent, right greater than left and involving the transverse colon. No infection or neoplasm is identified.
--- NOTE | 2021-02-11 19:05 | XRAY Report ---
PROCEDURE: Abdomen 1 View X-Ray INDICATIONS: Follow up SBO. Gastrografin challenge. TECHNIQUE: 1 view of the abdomen were acquired. COMPARISON: 02/11/2021 FINDINGS: Surgical changes and devices: None. Bowel: There are persistent dilated small bowel loops measuring up to 5.5 cm. Gastrografin present in the gastric fundus. Excreted contrast noted in the urinary bladder. Soft tissues: No masses; visualized solid organ contours appear normal in size. No suspicious abdom inal calcifications. Bones: No suspicious bony abnormalities. IMPRESSION: Persistent small bowel obstruction, stable. Gastrografin in the gastric fundus. Urinary contrast in the bladder Reviewed by: Iam Kennedy MD on 02/11/2021 6:03 PM EDWIN Approved by: Iam Kennedy MD on 02/11/2021 6:03 PM EDWIN Station ID: [id number]
[2021-02-12] MEDS: LACTATED RINGERS 1,000 ML IV SCH ×3 (04:41→13:00)
[2021-02-12] MEDS ORDERED: LACTATED RINGERS 1,000 ML IV ONE ×2 (05:17→07:16)
[2021-02-12 05:43] LABS: BASOPHILS % (AUTO) 0.3 %; EOSINOPHILS % (AUTO) 0.2 %; HCT - HEMATOCRIT 29.2 % (42.0-52.0); HGB - HEMOGLOBIN 8.9 g/dL (14.0-18.0); LYMPHOCYTES % (AUTO) 3.2 %; MEAN CORPUSCULAR HEMOGLOBIN 27.3 pg (27.0-31.0); MEAN CORPUSCULAR HGB CONC 30.5 g/dL (32.0-36.0); MEAN CORPUSCULAR VOLUME 89.6 fL (80.0-94.0); MEAN PLATELET VOLUME 11.3 fL (7.4-11.4); MONOCYTES % (AUTO) 7.8 %; NEUTROPHILS % (AUTO) 83.1 %; PLT - PLATELET COUNT 150 10^3/uL (130-450); RED BLOOD COUNT 3.26 10^6/uL (4.70-6.10); RED CELL DISTRIBUTION WIDTH 23.8 % (12.0-15.0); WHITE BLOOD COUNT 32.7 x10^3/uL (4.8-10.8)
[2021-02-12 05:47] LABS: ABNORMAL LYMPHS % (MANUAL) 0 %
[2021-02-12 05:51] LABS: CALCIUM 9.3 mg/dL (8.5-10.3); CREATININE 2.6 mg/dL (0.6-1.2); POTASSIUM 4.1 mmol/L (3.5-5.0)
[2021-02-12 06:06] LABS: BAND NEUTROPHILS % (MANUAL) 4 %; LYMPHOCYTES % (MANUAL) 3 %; NEUTROPHILS # (MANUAL) 29.8 10^3/uL (1.5-6.6)
[2021-02-12 06:07] LABS: PLATELET ESTIMATE, MANUAL NORMAL (130-450,000) (NORMAL); PLATELET MORPHOLOGY NORMAL APPEARANCE (NORMAL)
[2021-02-12 06:08] LABS: DIFFERENTIAL COMMENT MANUAL DIFFERENTIAL; WBC MORPHOLOGY (MULTIPLE) NORMAL APPEARANCE (NORMAL)
[2021-02-12] MEDS ORDERED: PIPERACILLIN/TAZOBACTAM 3.375 GM in SODIUM CHLORIDE 0.9% MINIBAG 100 ML IV SCH (08:00)
--- NOTE | 2021-02-12 08:34 | PROVIDER PROGRESS NOTE ---
Assessment/Plan - Problem List (1) Septic shock Assessment/Plan: Patient's blood pressures dropped to 60/48, white blood count has increased and he has a new fever. Will admit the pt to Inpatient status from Observation. Will recheck lactic acid level Will order blood cx Will give aggressive crystalloids for BP rescucutation in the ICU. IV Levophed will be ordered if needed to keep MAP greater than 60mmHg. Will start empiric antibiotics using Zosyn for a presumed abdominal source of sepsis We will cycle troponins x3 because of the hypotension. Will obtain chest x-ray because of witnessed vomiting, to rule out aspiration. General surgery has been re-contacted since the pt may need to go to the OR for persistent bowel obstruction. Lovenox will be stopped, SCDs have been ordered, INR has been ordered for possible surgery today. Will request Anesthesia place a triple lumen CVP at bedside or when in OR. Patient's status is now critical. I brought the up to current info at bedside. She mentioned his BP is always low and he takes Flurinef for that. (2) Small bowel obstruction Assessment/Plan: Abdominal film was done today that shows persistent Gastrografin in the fundus of the stomach. The patient pulled out his NG tube yesterday, one-to-one sitter was ordered since he is confused and also pulled out his IV. Awaiting further plan from General Surgery. Patient will get calories via IV fluids today. Nutrition to recommend further management for calories. Will request Anesthesia place a triple lumen CVP at bedside or when in OR. (3) FIONA (acute kidney injury) Assessment/Plan: Unfortunately his BUN/creatinine has increased today from normal yesterday to 40/2.6. Patient received IV crystalloid bolus when moved to the ICU for septic shock. Follow BMP daily. Avoid nephrotoxins. Will place Garsia catheter for accurate I's and O's while he is critically ill. (4) Hypernatremia Assessment/Plan: Likely related to volume depletion. Will give free water (D5W, LR) and his IV fluids. Follow BMP daily (5) Parkinson disease Assessment/Plan: He has visible tremor of upper extremities noted intermittently. He has not been able to take his p.o. Parkinson's meds for 2 days now since he is n.p.o. There is no iv form. (6) Dementia Assessment/Plan: As per Hx. 1:1 sitter was ordered since he is confused, pulled ou ng and iv, so as not to use sedation or restraints with sedation. (7) Anemia of chronic disease Assessment/Plan: Hemoglobin has been around 10, today dropped to 8.9. mhe is everal L (+) in fluid balance since admission, however. We will check B12 and folate levels and iron stores and replace if low Transfuse if hemoglobin is under 7 Follow Hgb daily. - Current Meds Current Meds: Current Medications Generic Name Dose Route Start Last Admin Trade Name Freq PRN Reason Stop Dose Admin Hydromorphone HCl 0.5 mg 02/10/21 19:54 02/11/21 20:58 Hydromorphone 0.5 Mg/0.5 Ml Syringe IVP 0.5 mg Q2H PRN Administration Pain 8 to 10 Lactated Ringer's 1,000 mls @ 100 mls/hr 02/10/21 20:00 02/12/21 04:41 Lr IV Infused .Q10H DAISY Infusion Ondansetron HCl 4 mg 02/10/21 19:54 02/11/21 18:40 Ondansetron 4 Mg/2 Ml Vial IVP 4 mg Q6HR PRN Administration Nausea / Vomiting Prochlorperazine Edisylate 10 mg 02/10/21 19:54 02/11/21 20:58 Prochlorperazine 10 Mg/2 Ml Vial IVP 10 mg Q6HR PRN Administration Nausea / Vomiting Sodium Chloride 10 ml 02/10/21 19:54 02/10/21 21:12 Sodium Chloride Flush 0.9% 10 Ml Syringe IVP 10 ml PRN PRN Administration NEEDED PER PROVIDER ORDERS Sodium Chloride 10 ml 02/11/21 01:00 02/11/21 23:28 Sodium Chloride Flush 0.9% 10 Ml Syringe IVP Not Given 0100,0900,1700 DAISY - Lab Result Fish Bone Diagrams: 02/12/21 05:30 02/12/21 05:30 - Additional Planning My Orders: My Active Orders 02/12/21 05:30 LACTIC ACID, VENOUS [CHEM] Urgent TROPONIN I HIGH SENSITIVITY [IAI] Urgent 02/12/21 08:23 Admit [Admit \ Transfer \ Status] [RC] .ONCE 02/12/21 08:25 Vital Signs [RC] Q2HR 02/12/21 08:27 Daily Weight [RC] 0600 IO [RC] Q1HR Initiate Flu Vaccine Screening [RC] ONCE Initiate ICU Electrolyte Prot. [RC] .protocol Initiate Pneumonia Vaccine Scr [RC] ONCE Turn and Reposition [RC] PRN MRSA PCR,CCU ADMIT Routine Sodium Chloride Flush 0.9% [Normal Saline Flush 0.9%] 10 ml IVP PRN PRN 02/12/21 08:28 Telemetry- [RC] Q4HR 02/12/21 08:30 TROPONIN I HIGH SENSITIVITY [IAI] Timed 02/12/21 08:31 SCDs [RC] QSHIFT 02/12/21 08:33 PT WITH INR [COAG] Routine 02/12/21 09:00 Sodium Chloride Flush 0.9% [Normal Saline Flush 0.9%] 10 ml IVP 0100,0900,1700 02/13/21 05:00 MAGNESIUM [CHEM] DAILYLAB PHOSPHORUS [CHEM] DAILYLAB Subjective - Subjective Patient Reports: Other (Not communicative, Aishwarya is at bedside) Nursing Reports: Confused, Shortness of Breath, Other (At approximately 05 100, the patient spiked a fever to 38.3 and dropped his blood pressure to 60/48. The lab scientist has ordered the patient to be moved to the ICU for septic shock.) Objective Vital Signs: Vital Signs - 24 hr 02/11/21 02/11/21 02/12/21 15:12 15:34 05:00 Temperature 37.0 C 37.4 C 37.7 C Heart Rate 95 Heart Rate [ 94 98 Brachial] Respiratory 18 18 25 H Rate Blood Pressure 173/104 H Blood Pressure 97/62 60/48 L [Right Brachial artery] O2 Saturation 90 L 90 L 90 L 02/12/21 02/12/21 06:31 07:35 Temperature 38.3 C H Heart Rate Heart Rate [ 93 94 Brachial] Respiratory 24 Rate Blood Pressure Blood Pressure 83/60 L 97/62 [Right Brachial artery] O2 Saturation 90 L Oxygen O2 Source Oxymask I&O (Last 24 Hrs): Intake and Output Totals x24h 02/10/21 02/11/21 02/12/21 23:59 23:59 23:59 Intake Total 1200 2235.000 1020 Output Total 700 3400 Balance 1200 1535.000 -2380 General: Alert, Other (Confused, pulling off his ventimask.) HEENT: EOMI, Mucous membr. moist/pink Neck: Supple Neuro: Disoriented, Non Focal Cardiovascular: Regular rate Respiratory: Breath sounds nml Abdomen: Other (Minimally distended, no bowel sounds) Extremities: No edema - Results Results: Laboratory Results WBC 32.7 x10^3/uL (4.8-10.8) H 02/12/21 05:30 RBC 3.26 10^6/uL (4.70-6.10) L 02/12/21 05:30 Hgb 8.9 g/dL (14.0-18.0) L 02/12/21 05:30 Hct 29.2 % (42.0-52.0) L 02/12/21 05:30 MCV 89.6 fL (80.0-94.0) 02/12/21 05:30 MCH 27.3 pg (27.0-31.0) 02/12/21 05:30 MCHC 30.5 g/dL (32.0-36.0) L 02/12/21 05:30 RDW 23.8 % (12.0-15.0) H 02/12/21 05:30 Plt Count 150 10^3/uL (130-450) 02/12/21 05:30 MPV 11.3 fL (7.4-11.4) 02/12/21 05:30 Reticulocyte % (Auto) 2.57 % (0.5-2.3) H 02/11/21 04:37 Neut # (Auto) Not Reportable 02/12/21 05:30 Lymph # (Auto) Not Reportable 02/12/21 05:30 [place] # (Auto) Not Reportable 02/12/21 05:30 Eos # (Auto) Not Reportable 02/12/21 05:30 Baso # (Auto) Not Reportable 02/12/21 05:30 Absolute Nucleated RBC Not Reportable 02/12/21 05:30 Total Counted 100 02/12/21 05:30 Band Neuts % (Manual) 4 % (0-10) 02/12/21 05:30 Abnorm Lymph % (Manual) 0 % 02/12/21 05:30 Nucleated RBC % Not Reportable 02/12/21 05:30 Neutrophils # (Manual) 29.8 10^3/uL (1.5-6.6) H 02/12/21 05:30 Lymphocytes # (Manual) 1.0 10^3/uL (1.5-3.5) L 02/12/21 05:30 Monocytes # (Manual) 2.0 10^3/uL (0.0-1.0) H 02/12/21 05:30 Eosinophils # (Manual) 0.0 10^3/uL (0-0.7) 02/12/21 05:30 Basophils # (Manual) 0.0 10^3/uL (0-0.1) 02/12/21 05:30 Differential Comment MANUAL DIFFERENTIAL 02/12/21 05:30 Manual Slide Review Indicated 02/10/21 18:05 WBC Morphology NORMAL APPEARANCE (NORMAL) 02/12/21 05:30 Platelet Estimate NORMAL (130-450,000) (NORMAL) 02/12/21 05:30 Platelet Morphology NORMAL APPEARANCE (NORMAL) 02/12/21 05:30 RBC Morph Micro Appear 1+ MACROCYTOSIS (NORMAL) 1+ OVALOCYTES (NORMAL) 2+ ANISOCYTOSIS (NORMAL) 02/12/21 05:30 RBC Morph Micro Appear 1+ MACROCYTOSIS (NORMAL) 1+ OVALOCYTES (NORMAL) 2+ ANISOCYTOSIS (NORMAL) 02/12/21 05:30 RBC Morph Micro Appear 1+ MACROCYTOSIS (NORMAL) 1+ OVALOCYTES (NORMAL) 2+ ANISOCYTOSIS (NORMAL) 02/12/21 05:30 Absolute Retic 0.098 10^6/uL (0.020-0.110) 02/11/21 04:37 Sodium 146 mmol/L (135-145) H 02/12/21 05:30 Potassium 4.1 mmol/L (3.5-5.0) 02/12/21 05:30 Chloride 104 mmol/L (101-111) 02/12/21 05:30 Carbon Dioxide 27 mmol/L (21-32) 02/12/21 05:30 Anion Gap 15.0 (6-13) H 02/12/21 05:30 BUN 40 mg/dL (6-20) H 02/12/21 05:30 Creatinine 2.6 mg/dL (0.6-1.2) H 02/12/21 05:30 Estimated GFR (MDRD) 24 (>89) L 02/12/21 05:30 Glucose 84 mg/dL (70-100) 02/12/21 05:30 Lactic Acid 1.3 mmol/L (0.5-2.2) 02/10/21 18:05 Calcium 9.3 mg/dL (8.5-10.3) 02/12/21 05:30 Iron 85 ug/dL (45-182) 02/11/21 04:37 Iron 86 ug/dL (45-182) 02/11/21 04:37 TIBC 326 ug/dL (250-450) 02/11/21 04:37 % Saturation 26 % (20-50) 02/11/21 04:37 Transferrin 233 mg/dL (180-329) 02/11/21 04:37 Transferrin 238 mg/dL (180-329) 02/11/21 04:37 Ferritin 13.2 ng/mL (23.9-336.2) L 02/11/21 04:37 Total Bilirubin 0.8 mg/dL (0.2-1.0) 02/10/21 18:05 AST 17 IU/L (10-42) 02/10/21 18:05 ALT < 10 IU/L (10-60) L 02/10/21 18:05 Alkaline Phosphatase 68 IU/L (42-121) 02/10/21 18:05 Lactate Dehydrogenase 176 IU/L (91-225) 02/11/21 04:37 Total Protein 7.2 g/dL (6.7-8.2) 02/10/21 18:05 Albumin 4.2 g/dL (3.2-5.5) 02/10/21 18:05 Globulin 3.0 g/dL (2.1-4.2) 02/10/21 18:05 Albumin/Globulin Ratio 1.4 (1.0-2.2) 02/10/21 18:05 Lipase 20 U/L (22-51) L 02/10/21 18:05 Vitamin B12 180 pg/mL (180-914) 02/11/21 04:37 Nasal Adenovirus (PCR) NOT DETECTED 02/10/21 18:18 Nasal B. parapertussis DNA (PCR) NOT DETECTED 02/10/21 18:18 Nasal Coronavir 229E PCR NOT DETECTED 02/10/21 18:18 Nasal Coronavir HKU1 PCR NOT DETECTED 02/10/21 18:18 Nasal Coronavir NL63 PCR NOT DETECTED 02/10/21 18:18 Nasal Coronavir OC43 PCR NOT DETECTED 02/10/21 18:18 Nasal Enterovir/Rhinovir PCR NOT DETECTED 02/10/21 18:18 Nasal Influenza B PCR NOT DETECTED 02/10/21 18:18 Nasal Influenza A PCR NOT DETECTED 02/10/21 18:18 Nasal Parainfluen 1 PCR NOT DETECTED 02/10/21 18:18 Nasal Parainfluen 2 PCR NOT DETECTED 02/10/21 18:18 Nasal Parainfluen 3 PCR NOT DETECTED 02/10/21 18:18 Nasal Parainfluen 4 PCR NOT DETECTED 02/10/21 18:18 Nasal RSV (PCR) NOT DETECTED 02/10/21 18:18 Nasal B.pertussis DNA PCR NOT DETECTED 02/10/21 18:18 Nasal C.pneumoniae (PCR) NOT DETECTED 02/10/21 18:18 Raoul Human Metapneumo PCR NOT DETECTED 02/10/21 18:18 Nasal M.pneumoniae (PCR) NOT DETECTED 02/10/21 18:18 Nasal SARS-CoV-2 (PCR) NOT DETECTED 02/10/21 18:18 - Procedures Procedures: Procedures DRAINAGE OF STOMACH WITH DRAINAGE DEVICE, VIA OPENING (03/18/20) EXCISION OF SMALL INTESTINE, OPEN APPROACH (03/18/20) INTRODUCE LOCAL ANESTH IN PERIPH NRV, PLEXI, PERC (03/18/20) RELEASE ILEUM, OPEN APPROACH (03/18/20) RELEASE JEJUNUM, OPEN APPROACH (03/18/20)
[2021-02-12 09:20] LABS: INR 1.8 (0.8-1.2); PT - PROTHROMBIN TIME 19.1 secs (9.9-12.6)
--- NOTE | 2021-02-12 09:20 | XRAY Report ---
PROCEDURE: Abdomen 1 View X-Ray INDICATIONS: post NG placement TECHNIQUE: 1 view of the abdomen were acquired. COMPARISON: X-ray abdomen, 02/11/2021, CT abdomen and pelvis with contrast, 02/10/2021.. FINDINGS: Surgical changes and devices: There is a NG tube with the tip projecting to the GE junction. Bowel: Dilated small bowel loops measure up to 6.3 cm in diameter. Soft tissues: No masses; visualized solid organ contours appear normal in size. No suspicious abdom inal calcifications. Bones: No suspicious bony abnormalities. IMPRESSION: 1. NG tube projecting to the GE junction. 2. Increased bowel distention suspicious for worsening of small bowel obstruction. No significant discrepancy with the preliminary interpretation. Reviewed by: Radha Benitez MD on 02/12/2021 9:19 AM PDT Approved by: Radha Benitez MD on 02/12/2021 9:19 AM PDT Station ID: [id number]
--- NOTE | 2021-02-12 09:40 | XRAY Report ---
PROCEDURE: Chest 1 View X-Ray INDICATIONS: Fever, vomited, poss aspiration TECHNIQUE: One view of the chest was acquired. COMPARISON: None. FINDINGS: Surgical changes and devices: None. Lungs and pleura: No pleural effusions or pneumothorax. Lungs are edematous and the inspiratory vol ume is reduced. Mediastinum: Mediastinal contours appear normal. Heart size is mildly enlarged. Bones and chest wall: No suspicious bony lesions. Overlying soft tissues appear unremarkable. IMPRESSION: Mild cardiomegaly, bilateral pulmonary edema pattern, presumed cardiogenic etiology. Reviewed by: Sedrick Zaidi MD on 02/12/2021 9:39 AM PDT Approved by: Sedrick Zaidi MD on 02/12/2021 9:39 AM PDT Station ID: [id number]
[2021-02-12] MEDS: ZINC OXIDE 20% OINT 30 GM TUBE TOP PRN ×2 (10:24→14:00)
[2021-02-12 11:10] LABS: MAGNESIUM 1.8 mg/dL (1.7-2.8)
--- NOTE | 2021-02-12 11:26 | PROVIDER PROGRESS NOTE ---
Progress Note Subjective Hospital day #2 admitted for small bowel obstruction. In the interval the patient has self discontinued his nasogastric tube. He is also removed his intravenous access. As of this a.m. the patient became hypotensive with interval increase in leukocytosis. He has been transferred to the ICU. He underwent plain film imaging with oral contrast challenge with no significant change. He has been intermittently on pressor support Objective Currently hemodynamically acceptable but labile this a.m. General Appearance: positive: No acute distress Eyes Bilateral: positive: Normal inspection ENT: positive: ENT inspection nml Neck: positive: Nml inspection Respiratory: positive: Chest non-tender, No respiratory distress, Breath sounds nml. negative: Wheezes, Rales, Rhonchi Cardiovascular: positive: Regular rate & rhythm Abdomen: positive: No distention, Other. negative: Guarding, Rebound Extremities: positive: Non-tender, Full ROM, Nml appearance Neurologic/Psychiatric: positive: Oriented x3, CN's nml (2-12) Impression/Plan 80-year-old male with recurrent small bowel obstruction. Historic internal herniation in the setting of virgin abdomen requiring long segment small bowel resection. Currently failing nonoperative therapy. Hemodynamic decompensation. Responding to fluid resuscitation. Transfer to ICU. (1) GI - IVF, bowel rest. GI ppx. Nasogastric decompression. Repeat CT abdomen. Opiate sparring analgesia. (2) SURGERY -we will follow up imaging and decide if the patient needs diagnostic laparoscopy if fails to clinically improve. (3) Renal/Lytes - continue IVF. Acute renal failure with worsening renal indices; Place Garsia catheter. (4) Respiratory - O2 as necessary. Continue IS. History of COPD. (5) Heme - Will continue with DVT ppx. H/H stable. (6) Cardiovascular - HD acceptable. (7) Neuro - Opiate sparring analgesia. Antispasmodics with Robaxin. Neuropathic agents. (8) Immune/Infectious Disease - broad-spectrum antibiotics.
[2021-02-12] MEDS ORDERED: IOPAMIDOL-300 50 ML VIAL ONE (11:34)
[2021-02-12 11:53] LABS: GLUCOSE, URINE (UA) NEGATIVE (NEGATIVE); KETONES,URINE (UA) TRACE mg/dL (NEGATIVE); LEUKOCYTE ESTERASE, URINE TRACE (NEGATIVE); NITRITE,URINE NEGATIVE (NEGATIVE); OCCULT BLOOD,URINE MODERATE (NEGATIVE); PH,URINE 5.5 PH (5.0-7.5); PROTEIN,URINE 30 mg/dL (NEGATIVE); UROBILINOGEN,URINE 0.2 (NORMAL) E.U./dL (NORMAL)
[2021-02-12 11:54] LABS: BILIRUBIN,URINE NEGATIVE (NEGATIVE); CLARITY,URINE HAZY (CLEAR); ICTOTEST,URINE NEGATIVE
[2021-02-12 12:03] LABS: BACTERIA,URINE Rare /HPF (None Seen); MUCUS,URINE Few Strands; SQUAMOUS EPITHELIAL CELL,UR RARE Squamous (<= Few)
[2021-02-12] MEDS: PIPERACILLIN/TAZOBACTAM 3.375 GM in SODIUM CHLORIDE 0.9% MINIBAG 100 ML IV SCH ×2 (12:16→23:59)
[2021-02-12] MEDS: SODIUM CHLORIDE FLUSH 0.9% 10 ML SYRINGE IVP PRN (12:19)
--- NOTE | 2021-02-12 13:25 | ANESTHESIA PROCEDURE NOTE ---
Anesth Central Line Template - Central Line Central Line Preparation: Unable to obtain consent, Time out completed, Ultra sound used, Sterile prep and drape Central line location: Right IJ Central line type: Triple lumen Central line catheter tip site resides: Superior vena cava (SVC) Central line aftercare: Secured, Placement confirmed, No pneumothorax, No complications, Bundle checklist complete, Pt tolerated well, Other Other Info/Details: 20cm cath sutured at 18, all 3 ports easily aspirate and flush. Line secured with suture. Pt agitated t/o procedure.
--- NOTE | 2021-02-12 13:51 | XRAY Report ---
PROCEDURE: Chest for Line Placement INDICATIONS: new CVL @RIJ TECHNIQUE: One view of the chest was acquired. COMPARISON: Posterior study from the same day. FINDINGS: Surgical changes and devices: Right internal jugular central venous catheter tip is in the region of lower SVC/right atrium. NG tube tip is below the left hemidiaphragm.. Lungs and pleura: No pleural effusions or pneumothorax. Mild pulmonary vascular congestion is seen. Underlying bilateral infrahilar infiltrates cannot be excluded. Mediastinum: Mediastinal contours appear normal. Heart size is normal. Bones and chest wall: No suspicious bony lesions. Overlying soft tissues appear unremarkable. IMPRESSION: Right internal jugular central venous catheter tip is in the region of SVC/right atrium. Mild pulmona ry vascular congestion, cannot rule out underlying bilateral infrahilar infiltrates. No pneumothorax. Reviewed by: Yifan Chahal MD on 02/12/2021 1:50 PM PDT Approved by: Yifan Chahal MD on 02/12/2021 1:50 PM PDT Station ID: [id number]
[2021-02-12] MEDS ORDERED: IOPAMIDOL-300 50 ML VIAL PO ONE (14:46)
[2021-02-12] MEDS: SODIUM CHLORIDE FLUSH 0.9% 10 ML SYRINGE IVP SCH ×2 (16:42→18:22)
[2021-02-12] MEDS: PANTOPRAZOLE 40 MG VIAL IV SCH (20:52)
[2021-02-12 20:53] LABS: GASTROCCULT POSITIVE (Negative)
[2021-02-13] MEDS: LACTATED RINGERS 1,000 ML IV SCH (02:36)
[2021-02-13] MEDS: SODIUM CHLORIDE FLUSH 0.9% 10 ML SYRINGE IVP PRN ×5 (02:37→11:52)
[2021-02-13] MEDS: HYDROmorphone 0.5 MG/0.5 ML SYRINGE IVP PRN ×2 (02:37→11:45)
[2021-02-13 05:23] LABS: BASOPHILS % (AUTO) 0.1 %; HCT - HEMATOCRIT 25.2 % (42.0-52.0); HGB - HEMOGLOBIN 7.7 g/dL (14.0-18.0); LYMPHOCYTES % (AUTO) 2.2 %; MEAN CORPUSCULAR HEMOGLOBIN 27.3 pg (27.0-31.0); MEAN CORPUSCULAR HGB CONC 30.6 g/dL (32.0-36.0); MEAN CORPUSCULAR VOLUME 89.4 fL (80.0-94.0); MEAN PLATELET VOLUME 10.5 fL (7.4-11.4); MONOCYTES % (AUTO) 9.5 %; NEUTROPHILS % (AUTO) 86.7 %; PLT - PLATELET COUNT 124 10^3/uL (130-450); RED BLOOD COUNT 2.82 10^6/uL (4.70-6.10); WHITE BLOOD COUNT 20.6 x10^3/uL (4.8-10.8)
[2021-02-13 05:24] LABS: ABNORMAL LYMPHS % (MANUAL) 0 %
[2021-02-13 05:33] LABS: CALCIUM 8.9 mg/dL (8.5-10.3); CREATININE 2.9 mg/dL (0.6-1.2); PHOSPHORUS 3.3 mg/dL (2.5-4.6); POTASSIUM 3.7 mmol/L (3.5-5.0)
[2021-02-13 05:41] LABS: BAND NEUTROPHILS % (MANUAL) 2 %; LYMPHOCYTES # (MANUAL) 0.6 10^3/uL (1.5-3.5); LYMPHOCYTES % (MANUAL) 3 %; MONOCYTES # (MANUAL) 2.3 10^3/uL (0.0-1.0); NEUTROPHILS # (MANUAL) 17.7 10^3/uL (1.5-6.6)
[2021-02-13 05:42] LABS: DIFFERENTIAL COMMENT MANUAL DIFFERENTIAL; PLATELET ESTIMATE, MANUAL DECREASED (<130,000) (NORMAL); PLATELET MORPHOLOGY NORMAL APPEARANCE (NORMAL); WBC MORPHOLOGY (MULTIPLE) NORMAL APPEARANCE (NORMAL)
--- NOTE | 2021-02-13 06:54 | CT Report ---
PROCEDURE: CHEST WO INDICATIONS: leukocytosis TECHNIQUE: Noncontrast 5 mm thick sections acquired from the pulmonary apices to the posterior costophrenic angl es. 7 mm thick coronal and sagittal MIP reformats were then acquired. For radiation dose reduction, the following was used: automated exposure control, adjustment of mA and/or kV according to patient size. COMPARISON: CTA chest 02/2620 FINDINGS: Image quality: There is beam hardening artifact from patient's upper extremities. Lungs and pleura: There is bilateral confluent consolidation within the lower lobes with air bronchog letty. In addition, small areas of posterior consolidation also demonstrated within the left lingula a nd right middle lobe. The findings likely represent pneumonia. No pleural effusions or pneumothorax. There are dependent filling defects within the trachea and right mainstem bronchus compatible with mu cus. Mediastinum: There is a right internal jugular catheter extending to the cavoatrial junction. Heart size is enlarged. No pericardial effusion. There is enlargement of the pulmonary arteries, with the main point artery measuring up to 3.2 cm suggestive of pulmonary arterial hypertension. There is aneu rysmal dilatation of the thoracic aorta, with the ascending aorta measuring up to 4.3 cm. The aortic arch measures up to 3.1 cm at the apex. The proximal descending aorta measures up to 4.2 cm. There is tortuosity of the descending thoracic aorta. At the level of the diaphragmatic hiatus, the aorta gilda sures up to 3.2 cm. No mediastinal adenopathy by size criteria. Esophagus is normal in caliber. No hiatal hernia. Bones and chest wall: There is heterogeneous appearance of the visualized osseous structures. No disc rete destructive bony lesion. No vertebral body compression fractures. No axillary or supraclavicula r adenopathy by size criteria. The thyroid demonstrates no discrete nodules. Abdomen: Visualized upper abdomen demonstrates thickening of the adrenal glands. There is prominent distention of the visualized stomach. A nasogastric tube is present extending into the stomach. IMPRESSION: 1. Bilateral consolidation within the lower lobes as well as smaller areas of consolidation in the po sterior segment of the right middle lobe and left lingula. The findings are consistent with pneumonia with the distribution and presence of mucus in the airways suggestive of aspiration. Recommend short -term follow-up to demonstrate resolution following appropriate therapy. 2. Aneurysmal dilatation of the thoracic aorta appears similar to the prior study. 3. Enlargement of the pulmonary arteries suggestive of pulmonary arterial hypertension. Reviewed by: Wilmer Will MD on 02/12/2021 3:01 PM PDT Approved by: Wilmer Will MD on 02/12/2021 3:01 PM PDT Station ID: [id number]
--- NOTE | 2021-02-13 06:55 | CT Report ---
PROCEDURE: Abdomen/Pelvis WO INDICATIONS: leukocytosis,SBO TECHNIQUE: After oral contrast ingestion, 5 mm thick sections acquired from the diaphragms to the symphysis. 5 mm coronal and sagittal reformats were then performed. For radiation dose reduction, the following w as used: automated exposure control, adjustment of mA and/or kV according to patient size. COMPARISON: 02/10/2021. Abdominal radiograph dated 02/10/2021, and 02/11/2021. FINDINGS: Image quality: Excellent. ABDOMEN: Lung bases: Airspace consolidation in posterior aspect of bilateral lower lobes are seen extending to bilateral hilar region suggestive of extensive right lateral lower lobe infiltrates. Small infiltrat e/atelectasis in posterior aspect of right middle lobe and left lingular segment are seen. Heart size is enlarged, no pericardial effusion. Solid organs: Liver and spleen are normal in size. Gallbladder is within normal limits Pancreas is normal in contours. No adrenal nodules. Kidneys are normal in size, without hydronephrosis or neph rolithiasis. Left renal cyst is again seen and unchanged. Peritoneum and bowel: Markedly distended m and small bowel loops are noted throughout the abdomen wit h oral contrast seen in stomach lumen and proximal small bowel loops. Multiple air-fluid levels are n oted throughout the abdomen with the largest small bowel diameter now measures up to 5.6 cm proximall y and 5.1 cm distally. Most distal portion of the sigmoid colon is decompressed with transition point likely in mid to lower abdomen near midline best seen on axial image 45 and coronal image 19. Fecal stasis throughout the colon is seen extending to the rectum. No free fluid or free air. No abnormal b owel wall thickening. No abscess collection. Nodes and vessels: No retroperitoneal or mesenteric adenopathy by size criteria. Aorta and inferior vena cava are normal in caliber. Mild atherosclerotic calcifications in the abdominal aorta is seen . Miscellaneous: No ventral hernias. PELVIS: Genitourinary: Garsia catheter is seen in a decompressed urinary bladder. Miscellaneous: No inguinal hernias or adenopathy. Bones: No suspicious bony lesions. No vertebral body compression fractures. Degenerative disc dise ase throughout lower thoracic and lumbar spine is seen. IMPRESSION: 1. Finding is consistent with worsening distal high-grade small bowel obstruction compared to 02/11/20 21 study. Transition point is seen in midline lower abdomen mesentery involving terminal ileum as mc cribed above. 2. Fecal stasis throughout the colon. No abnormal bowel wall thickening. No free fluid of free air. 3. Extensive airspace consolidations in bilateral lower lobes and posterior aspect of right middle lo be and left lingular segment suggestive of extensive pulmonary infiltrates. 4. Garsia catheter in a decompressed urinary bladder. No hydronephrosis. Reviewed by: Yifan Chahal MD on 02/12/2021 3:15 PM PDT Approved by: Yifan Chahal MD on 02/12/2021 3:15 PM PDT Station ID: [id number]
[2021-02-13] MEDS ORDERED: levoFLOXacin 750 MG/150 ML 750 MG/150 ML BAG IV SCH (08:00)
[2021-02-13] MEDS: SODIUM CHLORIDE FLUSH 0.9% 10 ML SYRINGE IVP SCH ×3 (08:25→09:45)
[2021-02-13] MEDS ORDERED: VANCOMYCIN INJ 2 GM in SODIUM CHLORIDE 0.9% 500 ML IV SCH (08:30)
--- NOTE | 2021-02-13 09:29 | XRAY Report ---
PROCEDURE: Abdomen 1 View X-Ray INDICATIONS: early sbo followup TECHNIQUE: 1 view of the abdomen were acquired. COMPARISON: CT abdomen pelvis 02/12/2021 FINDINGS: Surgical changes and devices: None. Bowel: No pneumoperitoneum. There is persistent appearance of dilated fluid-filled bowel loops altho ugh appearing less prominent when compared to prior exam. Soft tissues: No masses; visualized solid organ contours appear normal in size. No suspicious abdom inal calcifications. Bones: No suspicious bony abnormalities. IMPRESSION: Persistent appearance of dilated bowel loops most consistent with previous identified pa rtial small bowel obstruction. It is mildly improved. Reviewed by: Radha Huffman MD on 02/13/2021 9:28 AM PDT Approved by: Radha Huffman MD on 02/13/2021 9:28 AM PDT Station ID: [id number]
[2021-02-13] MEDS: PANTOPRAZOLE 40 MG VIAL IV SCH (09:41)
[2021-02-13] MEDS: ZINC OXIDE 20% OINT 30 GM TUBE TOP PRN ×2 (09:48→11:41)
[2021-02-13] MEDS: PIPERACILLIN/TAZOBACTAM 3.375 GM in SODIUM CHLORIDE 0.9% MINIBAG 100 ML IV SCH (11:31)
--- NOTE | 2021-02-13 12:07 | XRAY Report ---
PROCEDURE: Small Bowel Follow Through INDICATIONS: GASTROGRAFIN FOLLOWTHROUGH INITIAL PICTURE TAKEN AT 6.14.21 18:24 COMPARISON: X-ray abdomen, 2020. CT abdomen and pelvis without contrast, 02/12/2021. CONTRAST: CONTRAST: gastrografin FINDINGS: Gastrografin was given by mouth. Images were taken at m11 hours and 14 hours. There is poo r contrast opacification of the intestine, likely secondary to inadequate ingestion of Gastrografin. Small bowel loops are distended measuring up to 4 cm. There is paucity of colonic gas. Moderate amoun t stool in colon. Lordosis and degenerative changes noted in lumbar spine. IMPRESSION: 1. Suboptimal examination. There is poor opacification of small intestine by oral contrast likely sec ondary to inadequate oral contrast. 2. Dilated small intestine and the possibility of colonic gas in keeping with small bowel obstruction seen on the comparison CT. Reviewed by: Radha Benitez MD on 02/13/2021 12:05 PM PDT Approved by: Radha Benitez MD on 02/13/2021 12:05 PM PDT Station ID: [id number]
--- NOTE | 2021-02-13 12:59 | Discharge Plan ---
Discharge Plan Problem Reviewed?: Yes Disposition: 02 Transfer Acute Care Hosp No Smoking: If you smoke, Please STOP! Call for help. Follow-up with: LUIZ TINEO MD [Primary Care Provider] -
--- NOTE | 2021-02-13 13:06 | DISCHARGE SUMMARY ---
Discharge Summary Admit Date: 02/10/21 Discharge Date: 02/13/21 Discharging Provider: Dr Lara Gabriel Primary Care Provider: Dr Sam Luque ([place]) Discharge Disposition: 02 Transfer Acute Care Hosp Discharge Facility Name: [facility] History of Present Illness: From the admission H&P of Dr Isabel Conrad: Mr. Murillo is a 80-year-old white male who has a past medical history of Parkinson's disease is on Sinemet and Entacapone, hypotension and dementia, and now presents with recurrent small bowel obstruction. He last presented in February 2020 with abdominal pain and was found to have a closed-loop small bowel obstruction on CT. He was taken to the operating room on the day of admission for an exploratory laparotomy, and underwent a lysis of adhesions, long segment small bowel resection with en bloc Meckel's diverticulectomy, [id number] functional end-to-end anastomosis, closure of mesenteric defect, and a postop wound VAC. He was discharged after 8 days, progressed postoperatively. During his stay it was noted that he did not tolerate opiates very well and caused him to have episodes of hypotension. He had some postoperative delirium and then eventually returned to baseline. His admission creatinine was 1.6 and was 1.0 by the time of discharge. He now presents again with sudden onset of severe abdominal pain that started a few hours before coming to the ER. He has been eating normally without problems, no change in BM. No fever, no chills. No emesis. He was evaluated by nurse practitioner Vikki Rivera. He does not have a fever, nor does he have an elevated white cell count. Exam is remarkable for an elderly confused man who is writhing in pain on the gurney. CT scan confirms possible early small bowel obstruction with dilated loops of small bowel of up to 4.8 cm. It extends into the pelvis with colonic obstipation at the right colon greater than the left. General surgery was called. General surgery asked that the Hospitalist service admit the patient and they will consult. Patient is now placed in Observation status. - HOSPITAL COURSE Hospital Course: (1) Small bowel obstruction An NG tube was placed, to continuous suction, but he pulled it out, it was replaced and 1:1 sitter was ordered, in order not to use restraints. He underwent a gastrograffin oral challenge, the gastrograffin was still in the stomach on day 1. Abdominal film repeated the next day showed persistent gastrografin in the fundus of the stomach. A CT scan was then done that showed a worsening obstruction of the small bowel. Because of his co-morbidities (see #s 2-10 below), the Gen Surgeon, recommended transfer to higher level of care. He was accepted at the [facility] and transferred there in stable condition by ambulance. (2) Septic shock Patient's blood pressures dropped to 60/48, on his 2nd day and white blood count increased to 30 and he spiked a fever. He was admitted to Inpatient status from Observation. He was transferred to the ICU and started on aggressive crystalloids for BP resuscitation. A repeat lactic acid level was 2.9 (increased from 1.3). We ordered blood cultures, and started him on empiric iv antibiotics using Zosyn for a presumed abdominal source of sepsis. We cycled troponins x3 because of the hypotension and these came back at 155>> 275>> 314>> 261 (consistent with demand ischemia). A chest x-ray was done because of witnessed vomiting that was neg, but the CT of abdomen saw the basal lungs, and he did have consolidations bilaterally. General surgery was re-contacted and the surgeon advised transfer to higher level of care. I brought the up to date at bedside. She mentioned his BP is always low and he takes Flurinef for that. (3) HCAP The CT abdomen done on 02/12/21 was read as having bilateral lower lobe consolidation. He was kept him on iv Zosyn, and we started iv Vanco and iv Le vaquin. He needed supplemental O2 at 4L ventimask to keep sats >90% at the time of transfer. (4) FIONA (acute kidney injury) His BUN/creatinine increased from normal to 40/2.6, presumably from hypoperfusion when he was in shock. We ordered a Garsia catheter insertion for accurate I's and O's monitoring. (5) Pulmonary edema His CXR at transfer also showed pulmonary edema, likely from the saline iv given for rescusitation. (6) Hypernatremia His sodium climbed from 140>> 142>> 146. This was likely related to presenting with volume depletion. We ordered free water (D5W, LR) as his IV fluids at transfer. (7) Anemia Hemoglobin was 10, then dropped to 8.9, but he was several liters (+) in fluid balance at the time of transfer. Also, he had coffee ground gastric aspirate starting on 02/12/21 and was started on iv Protonix empirically. A specimen was sent for guaic test, and result was pending at time of transfer. (8) Elevated INR The INR was 1.8 at admission, presumably from nutritional deficits. (9) Parkinson disease He has visible tremor of upper extremities noted intermittently. He had not been able to take his p.o. Parkinson's meds for several days. (10) Chronic hypotension Likely autonomic failure related to his Parkinson's, as he is on Flurionef for low BP usually, per the , which he did not get while here, being npo. (11) Dementia As per Hx. A 1:1 sitter was ordered since he was confused, pulled out ng and iv's, so as not to use sedation or restraints. - ALLERGIES Allergies/Adverse Reactions: Allergies Allergy/AdvReac Type Severity Reaction Status Date / Time prednisone Allergy Edema Verified 02/10/21 17:56 - MEDICATIONS Home Medications: Ambulatory Orders Medication Instructions Recorded Confirmed Carbidopa/Levodopa [Carbidopa-Levo 1 tab PO 5XD 08/10/17 02/10/21 ER 50-200 Tab] Meloxicam 7.5 mg PO DAILY 08/10/17 02/10/21 Entacapone [Comtan] 200 mg PO 5XD 03/19/20 02/10/21 Melatonin 9 mg PO HS 03/19/20 02/10/21 QUEtiapine [SEROquel] 50 mg PO QPM 03/19/20 02/10/21 Sertraline HCl [Zoloft] 100 mg PO DAILY 03/19/20 02/10/21 Acetaminophen [Tylenol] 650 mg PO Q6H PRN #30 tablet 03/27/20 02/10/21 Fludrocortisone [Florinef] 0.2 mg PO DAILY 02/10/21 02/10/21 - PHYSICAL EXAM AT DISCHARGE General Appearance: positive: Lethargic, Other (Mostly somnolent, awakens briefly, moves all extremities and tries to pull off his ventimask.) Eyes Bilateral: positive: Normal inspection, EOMI ENT: positive: No signs of dehydration Neck: positive: Nml inspection, No JVD Respiratory: positive: Rales (bilateral bases) Cardiovascular: positive: Regular rate & rhythm, No murmur Abdomen: positive: No distention, Other (Absent bowel sounds. No guarding or re bound.) Skin: positive: Warm, Dry Neurologic/Psychiatric: positive: Other (lethargic, when awake he is confused) - LABS Result Diagrams: 02/13/21 05:00 02/13/21 05:00 - DIAGNOSTIC IMAGING Diagnostic Imaging Results: Final report reviewed - SEPSIS Current Stage of Sepsis: Septic shock Sepsis Criteria: Recorded Temperature greater than 38.3C or Less than 36C, WBC count greater than 12,000 or less than 4000, SBP less than 90 mmHg, Metabolic: lactate > 2 mmol/L - FOLLOW UP Follow Up: This will be determined after his hospitalization at the [facility]. - TIME SPENT Time Spent in Discharge (Minutes): 50
[2021-02-13 13:42] VITALS: BP 99/72
--- NOTE | 2021-02-13 14:09 | XRAY Report ---
PROCEDURE: Chest for Line Placement INDICATIONS: verify NG tube placement TECHNIQUE: One view of the chest was acquired. COMPARISON: Chest radiograph dated 02/12/2021 FINDINGS: Surgical changes and devices: Right-sided jugular central venous catheter is unchanged in positioning . A nasogastric tube appears to be in place with the distal tip projecting above the gastric esophage al junction within the expected location of the distal esophagus.. Lungs and pleura: No pleural effusions or pneumothorax. Lung volumes are slightly diminished with st reaky bibasilar opacities favored to represent atelectasis. Mediastinum: Mediastinal contours appear stable. Heart size is normal. Bones and chest wall: No suspicious bony lesions. Overlying soft tissues appear unremarkable. Promi nent loops of small bowel as before. IMPRESSION: 1. Nasogastric tube tip projects in the distal esophagus, above the gastroesophageal junction. Recomm end advancing the catheter at least 7-8 cm. 2. Stable positioning of right jugular central venous catheter. 3. Mild hypoventilatory changes of the lungs. No new airspace disease. 4. Persistent prominence of multiple loops of small bowel. Reviewed by: Enzo Jin MD on 02/13/2021 2:08 PM PDT Approved by: nEzo Jin MD on 02/13/2021 2:08 PM PDT Station ID: [id number]
== END 2021-02-13 14:00 | disposition short-term general hospital (02) | DRG 871 ==
LOC: EDUNIT# → ED 17:45 → MS2 19:54 → ICU 02-12 07:39 → OBSVTOIN 02-12 08:23
PROVIDERS: ADMIT Specialist; ATTEND Internal Medicine
PROC: 02HV33Z Insertion of Infusion Device into Superior Vena Cava, Percutaneous Approach (ICD-10-PCS; principal; 2021-02-12)
DX: A41.9 Sepsis, unspecified organism (principal); R65.21 Severe sepsis with septic shock; J18.9 Pneumonia, unspecified organism; K56.609 Unspecified intestinal obstruction, unspecified as to partial versus complete obstruction; Z79.899 Other long term (current) drug therapy; N17.9 Acute kidney failure, unspecified; D64.9 Anemia, unspecified; Z20.822 Contact with and (suspected) exposure to COVID-19; J81.1 Chronic pulmonary edema; E87.0 Hyperosmolality and hypernatremia; Y95 Nosocomial condition; D63.8 Anemia in other chronic diseases classified elsewhere; R79.1 Abnormal coagulation profile; G20 Parkinson's disease; F02.80 Dementia in other diseases classified elsewhere, unspecified severity, without behavioral disturbance, psychotic disturbance, mood disturbance, and anxiety; I95.89 Other hypotension; Z90.49 Acquired absence of other specified parts of digestive tract; Z87.891 Personal history of nicotine dependence; Z66 Do not resuscitate; E87.6 Hypokalemia; R32 Unspecified urinary incontinence
CPT/HCPCS: 36415; 43753; 71045; 71250; 74018; 74176; 74177; 74250; 80048; 80053; 81001; 82306; 82607; 82728; 83540; 83605; 83615; 83690; 83735; 83880; 84100; 84466; 84484; 85025; 85045; 85610; 87040; 87086; 87150; 87631; 93306; 96365; 96366; 96372; 96375; 96376; 99284; 99285; A9270; G0378; J1170; J1650; J3370; J7120; Q9963; Q9967; 0202U; 81003; 82272